=== PATIENT | female | born 1965 | race Caucasian/White ===

== ENCOUNTER 2022-01-18 05:06 | Inpatient (IN) | payer OTHER, SELFPAY ==
[2022-01-18] VITALS (18 sets, daily range): BP systolic 83–149; BP diastolic 44–100; PULSE 73–99; RESP 16–20; TEMP 36.2–38.2; O2SAT 96–100; BMI 31.8
--- NOTE | 2022-01-18 05:22 | DI.CT.S_ITS ---
PROCEDURE: CT ABDOMEN PELVIS WO CON INDICATIONS: Abdominal pain, status post colonoscopy TECHNIQUE: Axial sections were acquired from the lung bases to the pubic symphysis. Coronal and sagittal reformats were performed. For radiation dose reduction, the following was used: automated exposure control, adjustment of mA and/or kV according to patient size. COMPARISON: None. FINDINGS: Image quality: Excellent. Lung bases: Scars and atelectasis in right middle lobe and lingula. Heart: No significant findings. URINARY: Right Kidney: No stones or hydronephrosis. Right Ureter: No hydroureter. Left Kidney: No stones or hydronephrosis. Left Ureter: No hydroureter. Bladder: Normal wall thickness. No stones. ABDOMEN: Liver: Normal size. A 1.2 cm low-density nodule in the posterior medial aspect of the right hepatic lobe is most likely a cyst. Gallbladder: Unremarkable. Biliary ducts: Unremarkable. Pancreas: Unremarkable. Spleen: Unremarkable. Adrenal Glands: Unremarkable. Stomach and Bowel: Appendix is mildly enlarged measuring up to 10 cm in diameter. There is mild periappendiceal stranding. An appendicoliths is present at the base of the appendix. The CT findings are suspicious for early acute appendicitis. Stomach, small bowel loops, and colon are unremarkable. Peritoneum: No abnormal intraperitoneal fluid. No free air. Ventral Wall: No hernia. Abdominal Nodes: No enlarged retroperitoneal or mesenteric lymph nodes. Vessels: Aorta and inferior vena cava are normal in size. PELVIS: Pelvic Organs: Unremarkable. Pelvic Nodes: Unremarkable. Miscellaneous: No inguinal hernias are seen. Bones: Degenerative changes noted. IMPRESSION: 1. Early acute appendicitis. No significant discrepancy with the cnc machinist 2nd shift radiology preliminary report. Dictated by: Cristian Garcia M.D. on 01/18/2022 at 7:56 Approved by: Cristian Garcia M.D. on 01/18/2022 at 8:01
--- NOTE | 2022-01-18 05:24 | ED_ITS ---
HPI - Abdominal Pain <Jasper Alvarenga MD - Last Filed: 01/18/22 18:00> General Chief Complaint: Abdominal Pain Stated Complaint: stomach pains post colonscopy Time Seen by Provider: 01/18/22 05:14 Source: patient Mode of arrival: Ambulatory History of Present Illness HPI narrative: Patient here with . Postop day 1 status post colonoscopy yesterday morning with Dr. Berman at [facility] in [place]. This would be her 2nd colonoscopy in her life. Patient states she has had generalized abd ominal pain and bloating since the colonoscopy yesterday. No chest pain no back pain no vomiting or diarrhea. Had a little bit of flatus yesterday. She did walk around yesterday morning.. No urinary complaints. Patient does recall having fentanyl for her procedure yesterday. No side effects with it. Related Data Home Medications Medication Instructions Recorded Confirmed cetirizine 10 mg tablet 10 mg PO QDAYP PRN Allergy 10/28/16 01/18/22 Symptoms ##0 lisinopril 2.5 mg tablet 1.25 mg PO QDAY ##0 10/28/16 01/18/22 Previous Rx's Medication Instructions Recorded estradiol 0.01% (0.1 mg/gram) 1 g vaginal DAILY Vaginal atrophy 11/04/20 vaginal cream #42.5 grams Allergies Allergy/AdvReac Type Severity Reaction Status Date / Time buspirone [From BUSPAR] Allergy Unknown Verified 11/01/20 16:28 levofloxacin [LEVOFLOXACIN] Allergy Unknown Verified 11/01/20 16:28 pseudoephedrine Allergy Unknown Verified 11/01/20 16:28 [From SUDAFED] Sulfa (Sulfonamide Allergy Unknown Verified 11/01/20 16:28 Antibiotics) [SULFA (SULFONAMIDE ANTIBIOTICS)] morphine AdvReac Hypotension Verified 11/01/20 16:28 Review of Systems <Jasper Alvarenga MD - Last Filed: 01/18/22 18:00> Review of Systems Narrative: GENERAL: Denies chills, fatigue, malaise, fever, sweats. HEENT: Denies sinus pain, ear pain, sore throat RESPIRATORY: Denies dyspnea, cough CARDIOVASCULAR: Denies chest pain, palpitations GASTROINTESTINAL: Denies nausea, vomiting, positive for abdominal pain : Denies dysuria, frequency, hematuria MUSCULOSKELETAL: denies muscle or bony pain SKIN: Denies rash, skin lesions NEUROLOGIC: Denies weakness, numbness ROS Unobtainable: All systems reviewed & are unremarkable except as noted in HPI and below Patient History <Jsaper Alvarenga MD - Last Filed: 01/18/22 18:00> Medical History Anemia (~2005) Anxiety (~1988) Carpal tunnel syndrome (~2007) Cervical somatic dysfunction Chicken pox (~1974) Chronic back pain (~1998) Cranial somatic dysfunction Degenerative disc disease (~1998) Depression (~1999) Endometriosis (~1990) GERD (gastroesophageal reflux disease) (~2007) Hearing loss (~2014) Hypertension (~2005) Mumps (~1975) Neck pain Osteoarthritis (~2007) Shortness of breath Situational anxiety Stressful life events affecting family and household Tension headache Thoracic region somatic dysfunction Thyroid nodule (~2013) Tinnitus (~2014) Vision disorder Surgical History Anesthesia History of cystocele (~2012) History of hysterectomy (~2007) History of left breast biopsy (~1988) Family History Father History of heart disease Hypertension Hyperlipidemia Mental health problem Mother Lymphoma Cancer Grandfather History of heart disease Grandmother History of heart disease Grandfather History of emphysema Grandmother Stroke Social History household members: spouse Smoking Status: Former smoker alcohol intake: current Smoking Status: Former smoker alcohol intake frequency: a few times a month Substance Use Type: marijuana Exam <Jasper Alvarenga MD - Last Filed: 01/18/22 18:00> Narrative Exam Narrative: GENERAL: in no distress, not toxic not dyspneic HEAD: Normocephalic. EYES: Pupils equal round No scleral icterus. NECK: Trachea midline. CARDIOVASCULAR: Regular rate and rhythm without murmurs RESPIRATORY: Clear to auscultation. Breath sounds equal bilaterally. No wheezes, rales, or rhonchi. GASTROINTESTINAL: Abdomen soft, positive McBurney point tenderness., no peritoneal signs. No pain out of proportion to exam. NEURO: AOx4. SKIN: Warm and dry PSYCH: Not anxious, is cooperative Initial Vital Signs Initial Vital Signs: Vital Signs Temperature 97.1 F L 01/18/22 05:10 Pulse Rate 80 01/18/22 05:10 Respiratory Rate 18 01/18/22 05:10 Blood Pressure 140/100 H 01/18/22 05:10 Pulse Oximetry 99 01/18/22 05:10 Oxygen Delivery Method 01/18/22 05:10 <Hugo Phillips DO - Last Filed: 01/18/22 07:16> Initial Vital Signs Initial Vital Signs: Vital Signs Temperature 97.1 F L 01/18/22 05:10 Pulse Rate 80 01/18/22 05:10 Respiratory Rate 18 01/18/22 05:10 Blood Pressure 140/100 H 01/18/22 05:10 Pulse Oximetry 99 01/18/22 05:10 Oxygen Delivery Method 01/18/22 05:10 Course <Jasper Alvarenga MD - Last Filed: 01/18/22 18:00> Course Course Narrative: No new issues during course of stay 7:00 a.m.. Sign out to Dr. Phillips, will need to call Dr. Bedoya, general surgery Decision to Admit Date: 01/18/22 Decision to Admit time: 06:17 Orders Ordered: Hydrocodone Bitart/Acetaminophen (Hydrocodone/Acet 5/325 Tablet) 1 tab PO Q4HR PRN PRN Reason: Pain, Moderate (4-6) Hydromorphone HCl (Hydromorphone 0.5 Mg Inj) 0.5 mg IV Q4H PRN PRN Reason: Breakthrough pain only (8-10) Last Admin: 01/18/22 15:42 Dose: 0.5 mg Documented By: BT Sodium Chloride (Normal Saline 0.9%) 1,000 mls @ 125 mls/hr IV CONT MIA Last Infusion: 01/18/22 12:20 Dose: 0 mls/hr Documented By: Admin: 01/18/22 07:39 Dose: 125 mls/hr Documented By: JOCELYN Lactated Ringer's (Lactated Ringers) 1,000 mls @ 100 mls/hr IV CONT MIA Last Admin: 01/18/22 12:40 Dose: 100 mls/hr Documented By: BT Ibuprofen (Ibuprofen 600 Mg Tablet) 600 mg PO Q8H PRN PRN Reason: Fever/Mild Pain (1-3) Last Admin: 01/18/22 12:40 Dose: 600 mg Documented By: GEOVANY Naloxone HCl (Naloxone 0.4 Mg/Ml Vial) 0.2 mg IV Q2MIN PRN PRN Reason: Opiate Reversal Ondansetron HCl (Ondansetron 4 Mg/2 Ml Inj) 4 mg IV Q8HR PRN PRN Reason: Nausea And Vomiting Discontinued Medications Fentanyl (Fentanyl 100 Mcg/2 Ml Inj) 25 mcg IV NOW ONE Stop: 01/18/22 06:41 Last Admin: 01/18/22 06:48 Dose: 25 mcg Documented By: SWATI Fentanyl (Fentanyl 100 Mcg/2 Ml Inj) 25 mcg IV NOW ONE Stop: 01/18/22 10:03 Last Admin: 01/18/22 10:08 Dose: 25 mcg Documented By: JOCELYN Fentanyl (Fentanyl 100 Mcg/2 Ml Inj) 25 mcg IV NOW ONE Stop: 01/18/22 11:22 Last Admin: 01/18/22 11:30 Dose: 25 mcg Documented By: ROBBY Hydromorphone HCl (Hydromorphone 0.5 Mg Inj) 0.5 mg IV NOW ONE Stop: 01/18/22 07:38 Last Admin: 01/18/22 07:39 Dose: 0.5 mg Documented By: JOCELYN Sodium Chloride (Normal Saline 0.9%) 1,000 mls @ 1,000 mls/hr IV BOLUS ONE Stop: 01/18/22 06:21 Last Infusion: 01/18/22 07:43 Dose: 0 mls/hr Documented By: Admin: 01/18/22 05:38 Dose: 1,000 mls/hr Documented By: LINDA Piperacillin Sod/Tazobactam (Sod 4.5 gm/ Sodium Chloride) 100 mls @ 200 mls/hr IV NOW ONE Stop: 01/18/22 07:15 Last Infusion: 01/18/22 08:31 Dose: 0 mls/hr Documented By: Admin: 01/18/22 07:42 Dose: 200 mls/hr Documented By: JOCELYN Sodium Chloride (Normal Saline 0.9%) 1,000 mls @ 1,000 mls/hr IV BOLUS ONE Stop: 01/18/22 17:53 Last Admin: 01/18/22 17:06 Dose: 1,000 mls/hr Documented By: BT Reevaluation(s) Reevaluation #1: Reviewed results with patient. Understands likely appendicitis. Awaiting callback from general surgeon Time: 06:17 Consultations Consultation #1: Spoke with general surgery Dr. Hughes. Keep patient NPO. Dr. Bedoya will be likely doing surgery Time: 06:22 Vital Signs Vital signs: Vital Signs - 8 hr 01/18/22 05:10 Temperature 97.1 F L Pulse Rate 80 Respiratory Rate 18 Blood Pressure 140/100 H Pulse Oximetry 99 Oxygen Delivery Method Room Air <Hugo Phillips, - Last Filed: 01/18/22 07:16> Orders Ordered: Hydrocodone Bitart/Acetaminophen (Hydrocodone/Acet 5/325 Tablet) 1 tab PO Q4HR PRN PRN Reason: Pain, Moderate (4-6) Hydromorphone HCl (Hydromorphone 0.5 Mg Inj) 0.5 mg IV Q4H PRN PRN Reason: Breakthrough pain only (8-10) Last Admin: 01/18/22 15:42 Dose: 0.5 mg Documented By: BT Sodium Chloride (Normal Saline 0.9%) 1,000 mls @ 125 mls/hr IV CONT MIA Last Infusion: 01/18/22 12:20 Dose: 0 mls/hr Documented By: Admin: 01/18/22 07:39 Dose: 125 mls/hr Documented By: JOCELYN Lactated Ringer's (Lactated Ringers) 1,000 mls @ 100 mls/hr IV CONT MIA Last Admin: 01/18/22 12:40 Dose: 100 mls/hr Documented By: BT Ibuprofen (Ibuprofen 600 Mg Tablet) 600 mg PO Q8H PRN PRN Reason: Fever/Mild Pain (1-3) Last Admin: 01/18/22 12:40 Dose: 600 mg Documented By: BT Naloxone HCl (Naloxone 0.4 Mg/Ml Vial) 0.2 mg IV Q2MIN PRN PRN Reason: Opiate Reversal Ondansetron HCl (Ondansetron 4 Mg/2 Ml Inj) 4 mg IV Q8HR PRN PRN Reason: Nausea And Vomiting Discontinued Medications Fentanyl (Fentanyl 100 Mcg/2 Ml Inj) 25 mcg IV NOW ONE Stop: 01/18/22 06:41 Last Admin: 01/18/22 06:48 Dose: 25 mcg Documented By: SWATI Fentanyl (Fentanyl 100 Mcg/2 Ml Inj) 25 mcg IV NOW ONE Stop: 01/18/22 10:03 Last Admin: 01/18/22 10:08 Dose: 25 mcg Documented By: JOCELYN Fentanyl (Fentanyl 100 Mcg/2 Ml Inj) 25 mcg IV NOW ONE Stop: 01/18/22 11:22 Last Admin: 01/18/22 11:30 Dose: 25 mcg Documented By: AT Hydromorphone HCl (Hydromorphone 0.5 Mg Inj) 0.5 mg IV NOW ONE Stop: 01/18/22 07:38 Last Admin: 01/18/22 07:39 Dose: 0.5 mg Documented By: JOCELYN Sodium Chloride (Normal Saline 0.9%) 1,000 mls @ 1,000 mls/hr IV BOLUS ONE Stop: 01/18/22 06:21 Last Infusion: 01/18/22 07:43 Dose: 0 mls/hr Documented By: Admin: 01/18/22 05:38 Dose: 1,000 mls/hr Documented By: LINDA Piperacillin Sod/Tazobactam (Sod 4.5 gm/ Sodium Chloride) 100 mls @ 200 mls/hr IV NOW ONE Stop: 01/18/22 07:15 Last Infusion: 01/18/22 08:31 Dose: 0 mls/hr Documented By: Admin: 01/18/22 07:42 Dose: 200 mls/hr Documented By: JOCELYN Sodium Chloride (Normal Saline 0.9%) 1,000 mls @ 1,000 mls/hr IV BOLUS ONE Stop: 01/18/22 17:53 Last Admin: 01/18/22 17:06 Dose: 1,000 mls/hr Documented By: GEOVANY Vital Signs Vital signs: Vital Signs - 8 hr 01/18/22 05:10 Temperature 97.1 F L Pulse Rate 80 Respiratory Rate 18 Blood Pressure 140/100 H Pulse Oximetry 99 Oxygen Delivery Method Room Air MDM - Abdominal Pain <Jasper Alvarenga MD - Last Filed: 01/18/22 18:00> Differential Diagnosis Differential diagnosis: Likely abdominal pain, acute appendicitis, constipation, pancreatitis and small bowel obstruction Lab Data Result diagrams: 01/18/22 05:34 01/18/22 05:34 Labs: Lab Results 01/18/22 01/18/22 01/18/22 Range/Units 05:34 05:34 06:40 WBC 11.7 H (4.5-11.0) X10^3/uL RBC 4.03 (4.0-5.2) X10^6/uL Hgb 12.6 (12.0-16.0) g/dL Hct 36.8 (36-46) % MCV 91.3 (80-100) fL MCH 31.3 (26-34) PG MCHC 34.2 (30-36) % RDW 12.5 (11.6-14.8) % Plt Count 340 (150-400) X10^3/uL Neut % (Auto) 72.8 (50-75) % Lymph % (Auto) 18.4 L (25-40) % [place] % (Auto) 8.0 (3-14) % Eos % (Auto) 0.4 L (2-4) % Baso % (Auto) 0.4 (0-2) % Neut # (Auto) 8500 H (8513-2283) /uL Lymph # (Auto) 2200 (8114-8704) /uL [place] # (Auto) 900 (0-900) /uL Eos # (Auto) 0 (0-450) /uL Baso # (Auto) 100 (0-100) /uL Sodium 132 L (137-145) mmol/L Potassium 3.7 (3.4-5.1) mmol/L Chloride 98 (98-107) mmol/L Carbon Dioxide 22 (22-32) mmol/L BUN 14 (7-17) mg/dL Creatinine 0.69 (0.52-1.04) mg/dL Estimated GFR > 60 (>60) mL/min BUN/Creatinine Ratio 20.3 (6-22) Glucose 121 H (70-100) mg/dL Calcium 9.2 (8.4-10.2) mg/dL Total Bilirubin 0.5 (0.2-1.3) mg/dL AST 24 (14-36) IU/L ALT 18 (<35) IU/L Alkaline Phosphatase 57 (38-126) U/L Total Protein 7.8 (6.3-8.2) g/dL Albumin 4.6 (3.5-5.0) g/dL Globulin 3.2 (1.7-4.1) g/dL Albumin/Globulin Ratio 1.4 (1.0-2.8) Lipase 117 (23-300) U/L SARS-CoV-2 (PCR) Negative (Negative) Imaging Data CT scan - abdomen/pelvis: Radiologist's Impression: Read by overnight radiologist no free air demonstrated. 12 mm appendicolith base of the appendix. The appendix is distended at 11 mm and mild periappendiceal inflammatory changes of all concerning for early acute unc omplicated appendicitis. MDM Narrative Medical decision making narrative: Appropriate for admission for surgical intervention. <Hugo Phillips DO - Last Filed: 01/18/22 07:16> Lab Data Labs: Lab Results 01/18/22 01/18/22 01/18/22 Range/Units 05:34 05:34 06:40 WBC 11.7 H (4.5-11.0) X10^3/uL RBC 4.03 (4.0-5.2) X10^6/uL Hgb 12.6 (12.0-16.0) g/dL Hct 36.8 (36-46) % MCV 91.3 (80-100) fL MCH 31.3 (26-34) PG MCHC 34.2 (30-36) % RDW 12.5 (11.6-14.8) % Plt Count 340 (150-400) X10^3/uL Neut % (Auto) 72.8 (50-75) % Lymph % (Auto) 18.4 L (25-40) % [place] % (Auto) 8.0 (3-14) % Eos % (Auto) 0.4 L (2-4) % Baso % (Auto) 0.4 (0-2) % Neut # (Auto) 8500 H (3754-6264) /uL Lymph # (Auto) 2200 (6420-2418) /uL [place] # (Auto) 900 (0-900) /uL Eos # (Auto) 0 (0-450) /uL Baso # (Auto) 100 (0-100) /uL Sodium 132 L (137-145) mmol/L Potassium 3.7 (3.4-5.1) mmol/L Chloride 98 (98-107) mmol/L Carbon Dioxide 22 (22-32) mmol/L BUN 14 (7-17) mg/dL Creatinine 0.69 (0.52-1.04) mg/dL Estimated GFR > 60 (>60) mL/min BUN/Creatinine Ratio 20.3 (6-22) Glucose 121 H (70-100) mg/dL Calcium 9.2 (8.4-10.2) mg/dL Total Bilirubin 0.5 (0.2-1.3) mg/dL AST 24 (14-36) IU/L ALT 18 (<35) IU/L Alkaline Phosphatase 57 (38-126) U/L Total Protein 7.8 (6.3-8.2) g/dL Albumin 4.6 (3.5-5.0) g/dL Globulin 3.2 (1.7-4.1) g/dL Albumin/Globulin Ratio 1.4 (1.0-2.8) Lipase 117 (23-300) U/L SARS-CoV-2 (PCR) Negative (Negative) MDM Narrative Medical decision making narrative: Appropriate for admission for surgical intervention. Dr Phillips: Received turned over. Reviewed patient's history and physical and labs and radiologic studies. I did discuss the case with Dr. Bedoya. Will admit to the hospital for surgical intervention of the CT consistent with acute appendicitis. Antibiotics ordered. Discharge Plan Departure Patient Disposition: Admitted as Observation Clinical Impression: Acute appendicitis Admit Date/Time: 01/18/22 07:22 Admit Provider: Michael Bedoya
[2022-01-18] MEDS: SODIUM CHLORIDE 0.9% 1,000 ML 1000 ML IV ×2 (05:38→17:06)
[2022-01-18 05:48] LABS: Add Manual Diff / Slide Review NO; Basophils Absolute Auto 100 /uL (0-100); Basophils Percent Auto 0.4 % (0-2); Eosinophils Absolute Auto 0 /uL (0-450); Eosinophils Percent Auto 0.4 % (2-4); Hematocrit 36.8 % (36-46); Hemoglobin 12.6 g/dL (12.0-16.0); Lymphocytes Absolute Auto 2200 /uL (1100-4500); Lymphocytes Percent Auto 18.4 % (25-40); Mean Corpuscular HGB Conc 34.2 % (30-36); Mean Corpuscular Hemoglobin 31.3 PG (26-34); Mean Corpuscular Volume 91.3 fL (80-100); Monocytes Absolute Auto 900 /uL (0-900); Neutrophils Absolute Auto 8500 /uL (1500-7000); Neutrophils Percent Auto 72.8 % (50-75); Platelet Count 340 X10^3/uL (150-400); Red Blood Cell Count 4.03 X10^6/uL (4.0-5.2); Red Cell Distribution Width 12.5 % (11.6-14.8); White Blood Cell Count 11.7 X10^3/uL (4.5-11.0)
[2022-01-18 05:55] LABS: Alanine Aminotransferase 18 IU/L (<35); Albumin 4.6 g/dL (3.5-5.0); Albumin Globulin Ratio 1.4 (1.0-2.8); Alkaline Phosphatase 57 U/L (38-126); Aspartate Aminotransferase 24 IU/L (14-36); BUN Creatinine Ratio 20.3 (6-22); Bilirubin Total 0.5 mg/dL (0.2-1.3); Blood Urea Nitrogen 14 mg/dL (7-17); Calcium 9.2 mg/dL (8.4-10.2); Carbon Dioxide 22 mmol/L (22-32); Chloride 98 mmol/L (98-107); Estimated Glomerular Filt Rate > 60 mL/min (>60); Globulin 3.2 g/dL (1.7-4.1); Glucose 121 mg/dL (70-100); HEMOLYSIS < 15 (0-50); Lipase 117 U/L (23-300); Potassium 3.7 mmol/L (3.4-5.1); Sodium 132 mmol/L (137-145); Total Protein 7.8 g/dL (6.3-8.2)
[2022-01-18] MEDS: fentaNYL 100 MCG/2 ML INJ 25 MCG IV ×3 (06:48→11:30)
[2022-01-18 07:08] LABS: COVID19 -Nasal RAPID Negative (Negative)
[2022-01-18] MEDS: HYDROMORPHONE 0.5 MG INJ IV ×2 (07:39→15:42)
[2022-01-18] MEDS: SODIUM CHLORIDE 0.9% 1,000 ML 125 ML IV ×2 (07:39→18:42)
[2022-01-18] MEDS: PIPERACILLIN/TAZO 4.5 GM in SODIUM CHLORIDE 0.9% 100 ML IV ×2 (07:42→20:20)
--- NOTE | 2022-01-18 11:17 | PC.NURSE ---
Pt reports pain, requesting Fentanyl 25mcg IV, declines PRN pain medications orders r/t stating it made her feel weird. Call placed to Dr. Matias by previous RN, second call placed to Dr. Bedoya by this RN. Dr. Bedoya refers pain managment order to ER Dr. Phillips, verbal orders received.
[2022-01-18] MEDS: LACTATED RINGERS 1,000 ML 100 ML IV (12:40)
[2022-01-18] MEDS: IBUPROFEN 600 MG TABLET PO (12:40)
--- NOTE | 2022-01-18 18:49 | P.HP_ITS ---
History of Present Illness History of Present Illness Date Patient Seen: 01/18/22 Time Patient Seen: 18:49 Chief complaint: stomach pains post colonoscopy Narrative: Michelle is a 56-year-old woman who had a colonoscopy at [facility] yesterday. Two small polyps were removed. She started to feel right-sided abdominal pain last night and came to the emergency room overnight. A CT scan showed a dilated appendix with an appendicolith. There was no evidence of perforation. Patient History Medical History Anemia (~2005) Anxiety (~1988) Carpal tunnel syndrome (~2007) Cervical somatic dysfunction Chicken pox (~1974) Chronic back pain (~1998) Cranial somatic dysfunction Degenerative disc disease (~1998) Depression (~1999) Endometriosis (~1990) GERD (gastroesophageal reflux disease) (~2007) Hearing loss (~2014) Hypertension (~2005) Mumps (~1975) Neck pain Osteoarthritis (~2007) Shortness of breath Situational anxiety Stressful life events affecting family and household Tension headache Thoracic region somatic dysfunction Thyroid nodule (~2013) Tinnitus (~2014) Vision disorder Surgical History Anesthesia History of cystocele (~2012) History of hysterectomy (~2007) History of left breast biopsy (~1988) Family & Social History Family History Father History of heart disease Hypertension Hyperlipidemia Mental health problem Mother Lymphoma Cancer Grandfather History of heart disease Grandmother History of heart disease Grandfather History of emphysema Grandmother Stroke Social History: household members spouse Prior Living Arrangements House Safety & Behavioral: Feels Safe in Current Yes Environment Been Physically Hurt or No Threatened By a Person Tobacco & Substance use: Tobacco type cigarettes Smoking Status Former smoker alcohol intake current alcohol intake frequency a few times a month Substance Use Type marijuana Meds Home Medications and Allergies Home Medications Medication Instructions Recorded Confirmed Type cetirizine 10 mg tablet 10 mg PO QDAYP PRN Allergy 10/28/16 01/18/22 History Symptoms ##0 lisinopril 2.5 mg tablet 1.25 mg PO QDAY ##0 10/28/16 01/18/22 History estradiol 0.01% (0.1 mg/gram) 1 g vaginal DAILY Vaginal atrophy 11/04/20 01/18/22 Rx vaginal cream #42.5 grams Allergies Allergy/AdvReac Type Severity Reaction Status Date / Time buspirone [From BUSPAR] Allergy Unknown Verified 11/01/20 16:28 levofloxacin [LEVOFLOXACIN] Allergy Unknown Verified 11/01/20 16:28 pseudoephedrine Allergy Unknown Verified 11/01/20 16:28 [From SUDAFED] Sulfa (Sulfonamide Allergy Unknown Verified 11/01/20 16:28 Antibiotics) [SULFA (SULFONAMIDE ANTIBIOTICS)] morphine AdvReac Hypotension Verified 11/01/20 16:28 Exam Vital Signs (past 8 hours): - 01/18/22 11:00 01/18/22 11:00 01/18/22 11:30 Temperature Pulse Rate 86 Respiratory Rate Blood Pressure 127/60 130/61 Pulse Oximetry 100 Oxygen Delivery Method Oxygen Flow Rate 01/18/22 11:30 01/18/22 12:00 01/18/22 12:00 Temperature Pulse Rate 77 83 Respiratory Rate Blood Pressure 137/68 Pulse Oximetry 100 99 Oxygen Delivery Method Room Air Oxygen Flow Rate 01/18/22 12:40 01/18/22 17:04 01/18/22 17:48 Temperature 97.7 F 99.7 F H 99.6 F Pulse Rate 82 94 H Respiratory Rate 17 16 Blood Pressure 149/79 H 98/51 L 131/76 Pulse Oximetry 100 97 Oxygen Delivery Method Oxygen Flow Rate 0 0 Oxygen Delivery Method Room Air Oxygen Flow Rate 0 Resp Effort & Inspection: normal respiratory effort GI Other: Exquisitely tender over McBurney's point Objective Labs Result Diagrams: 01/18/22 05:34 01/18/22 05:34 Labs: Laboratory Results - last 24 hr 01/18/22 01/18/22 01/18/22 05:34 05:34 06:40 WBC 11.7 H RBC 4.03 Hgb 12.6 Hct 36.8 MCV 91.3 MCH 31.3 MCHC 34.2 RDW 12.5 Plt Count 340 Neut % (Auto) 72.8 Lymph % (Auto) 18.[address] [place] % (Auto) 8.0 Eos % (Auto) 0.4 L Baso % (Auto) 0.4 Neut # (Auto) 8500 H Lymph # (Auto) 2200 [place] # (Auto) 900 Eos # (Auto) 0 Baso # (Auto) 100 Sodium 132 L Potassium 3.7 Chloride 98 Carbon Dioxide 22 BUN 14 Creatinine 0.69 Estimated GFR > 60 BUN/Creatinine Ratio 20.3 Glucose 121 H Calcium 9.2 Total Bilirubin 0.5 AST 24 ALT 18 Alkaline Phosphatase 57 Total Protein 7.8 Albumin 4.6 Globulin 3.2 Albumin/Globulin Ratio 1.4 Lipase 117 SARS-CoV-2 (PCR) Negative Assessment & Plan Assessment and plan (1) Acute appendicitis: Qualifiers: Acute appendicitis type: with localized peritonitis Appendicitis gangrene presence: without gangrene Appendicitis perforation presence: without perforation Appendicitis abscess presence: without abscess Qualified Code(s): K35.30 - Acute appendicitis with localized peritonitis, without perforation or gangrene Status: Acute Plan Will proceed with a laparoscopic appendectomy as soon as there is or availability. In the meantime she can have full liquid diet until midnight and then be NPO. Will continue Zosyn until we can get her into the operating room. We reviewed the risks and benefits of surgery and she wishes to proceed. Time Spent With Patient Critical Care time: I spent a total of [] minutes of critical care time on this patient's care today; this time is exclusive of procedural time. Quality VTE Deep Vein Thrombosis/Pulmonary Embolism Present on Admission: No
[2022-01-18] MEDS: CODEINE 30 MG TABLET PO (18:58)
[2022-01-18] MEDS: IBUPROFEN 400 MG TABLET 800 MG PO (19:16)
[2022-01-18] MEDS: ACETAMINOPHEN 325 MG TABLET 650 MG PO (19:17)
[2022-01-19] VITALS (16 sets, daily range): BP systolic 92–128; BP diastolic 50–74; PULSE 55–93; RESP 14–18; TEMP 36.2–37.4; O2SAT 94–100; BMI 31.8
--- NOTE | 2022-01-19 | PATH_ITS ---
[facility] Accession Number: [id number] . 01 Material submitted: . appendix - APPENDIX . 01 Clinical history: . STOMACH PAINS POST COLONOSCOPY . 01 Diagnosis: Vermiform Appendix, Appendectomy: Acute transmural appendicitis and periappendicitis. Negative for neoplasia. MRV 01/22/2022 1428 Local . 01 Electronically signed: . Kelsey Suazo MD, Pathologist NPI- [id number] . 01 Gross description: . Received in formalin, labeled with the patient's name and designated 1. Appendix, is a 7.5 cm long by 1.2 cm in diameter, intact vermiform appendix with a minimal amount of attached hemorrhagic mesoappendix. The proximal margin is inked black. The serosa is mottled, edward-estrada with a moderate amount of attached estrada-white purulent exudate. The wall is 0.1-0.2 cm thick. The lumen is 0.3, dilated up to 1.0 cm, filled with fecal material. No gross perforation is identified. Director [employer] sections to include inked proximal margin en face and distal bisected tip are submitted in cassette A1. (JACINTO:[id number]) /FRR 01/20/2022 1320 Local . 01 Pathologist provided ICD-10: K35.80 . 01 CPT . 435984 Specimen Comment: A courtesy copy of this report has been sent to [phone] Performed at: 01 [facility] [address] [place] [address] [id number] MD Elgin Breaux MD Phone: [phone]
[2022-01-19] MEDS: LACTATED RINGERS 1,000 ML 100 ML IV (00:35)
[2022-01-19] MEDS: ACETAMINOPHEN 325 MG TABLET 650 MG PO ×3 (01:36→15:21)
[2022-01-19] MEDS: IBUPROFEN 600 MG TABLET PO (03:13)
[2022-01-19] MEDS: PIPERACILLIN/TAZO 4.5 GM in SODIUM CHLORIDE 0.9% 100 ML IV ×3 (03:50→21:30)
[2022-01-19 04:28] LABS: Add Manual Diff / Slide Review NO; Basophils Absolute Auto 100 /uL (0-100); Basophils Percent Auto 0.4 % (0-2); Eosinophils Absolute Auto 0 /uL (0-450); Eosinophils Percent Auto 0.1 % (2-4); Hematocrit 32.7 % (36-46); Hemoglobin 11.3 g/dL (12.0-16.0); Lymphocytes Absolute Auto 300 /uL (1100-4500); Lymphocytes Percent Auto 1.8 % (25-40); Mean Corpuscular HGB Conc 34.4 % (30-36); Mean Corpuscular Hemoglobin 31.5 PG (26-34); Mean Corpuscular Volume 91.4 fL (80-100); Monocytes Absolute Auto 600 /uL (0-900); Monocytes Percent Auto 3.5 % (3-14); Neutrophils Absolute Auto 17000 /uL (1500-7000); Neutrophils Percent Auto 94.2 % (50-75); Platelet Count 232 X10^3/uL (150-400); Red Blood Cell Count 3.57 X10^6/uL (4.0-5.2); Red Cell Distribution Width 12.5 % (11.6-14.8)
[2022-01-19 04:51] LABS: BUN Creatinine Ratio 11.8 (6-22); Blood Urea Nitrogen 9 mg/dL (7-17); Carbon Dioxide 21 mmol/L (22-32); Chloride 103 mmol/L (98-107); Estimated Glomerular Filt Rate > 60 mL/min (>60); Glucose 118 mg/dL (70-100); HEMOLYSIS < 15 (0-50); Potassium 3.6 mmol/L (3.4-5.1); Sodium 132 mmol/L (137-145)
--- NOTE | 2022-01-19 07:40 | PC.NURSE ---
Online Marketer Note-Patient has been fatigued but oriented x4. NPO since midnight except meds for possible exploratory lap today. No N/V, rates abdominal pain 3-6/10 and intermittent headache 3-5/10, takin Tylenol and ibuprofen. BP 90s/40s-50s. other VSS. Scheduled Zosyn infusing with NS, IVF order is for LR at 100ml/hr, patient refused another IV start.
--- NOTE | 2022-01-19 10:20 | PC.NURSE ---
Day shift: Pt off unit for surgery at approx 1015. Pt's Spouse was in room too and knows the plan.
[2022-01-19] MEDS: LACTATED RINGERS 1,000 ML 42 ML IV (10:43)
--- NOTE | 2022-01-19 11:19 | PM.PREOP ---
Pre-operative Note COVID-19 COVID-19 status: Negative Result date/Date tested (Pos, Neg/Pending): 01/18/22 Interval Note History & Physical reviewed/Exam performed by Physician: Yes Changes to H&P: No H&P completed within 30 days and has changed as indicated here:: Increased leukocytosis
--- NOTE | 2022-01-19 12:05 | PC.NURSE ---
Day shift: Pt remains off of AC unit at this time.
--- NOTE | 2022-01-19 12:17 | SUR.OPER ---
Supine on padded OR bed, head on pillow, safety belt at thigh, left arm padded and tucked at side. Right arm secured on padded arm board <90 degrees abduction. Legs uncrossed. Padded footboard in place. Tape over blanket to secure lower legs.
[2022-01-19] MEDS: BUPIVACAINE 0.5% (PF) VIAL 30 ML INJ (12:31)
[2022-01-19] MEDS: LIDOCAINE 1% W/EPI 20 ML INJ (12:31)
--- NOTE | 2022-01-19 12:54 | PM.OP.1 ---
Operative Date/Time/Diagnoses Date of procedure: 01/19/22 Time of procedure: 12:54 Pre-op diagnosis: Acute appendicitis Post-op diagnosis: same Procedure & Clinicians Procedure: Laparoscopic appendectomy Same procedure as scheduled: Yes Surgeon: Michael Bedoya Anesthesia Type: General Operative Notes Procedure in detail: Procedure in detail: The patient was on IV antibiotics. The patient was brought to the operating room, placed on the table in the supine position and general endotracheal anesthesia was induced. A time-out was performed. The abdomen was prepped and draped in the usual fashion. After injection of 0.25% Marcaine a 1 cm infraumbilical incision was created with a 15 blade scalpel. The umbilical stalk was grasped with a Jose Manuel clamp to elevate the abdominal wall. The infraumbilical midline fascia was cleared over 1 cm and the fascia was scored with cautery. The peritoneum was pierced with a Peon clamp. The Janice port was placed and the abdomen was insufflated to 15 mmHg. The camera was inserted and there was no evidence of any injury from the entry. Next, 5 mm ports were placed in the suprapubic and left lower quadrant positions under direct vision. The patient was placed in Trendelenburg with the right-side elevated. The terminal ileum was swept away from the cecum and the appendix was visualized. The appendix was inflamed and distended but not perforated and there was no evidence of gangrene. The mesoappendix was divided with the LigaSure to the base. Two PDS Endoloops were placed at the base and a 3rd endoloop was placed about a cm distally and the appendix was divided sharply. The specimen was placed in a Endo-Catch bag. A small amount of fluid with suction from the base of the appendix, upper on right liver and down in the pelvis. The table was flattened and the terminal ileum and omentum were allowed to slide in over the appendiceal stump. Finally, the 5 mm ports were removed under direct vision. The pneumoperitoneum was released and the Janice port was removed followed by the Endo-Catch bag. Additional local was injected into the fascia and the infraumbilical incision was closed with 2 interrupted 2-0 Vicryl sutures. The skin incisions were closed with 4 Monocryl. Steri-Strips were applied followed by Band-Aids. EBL: 5 mL Specimen: Appendix Post-operative Condition: stable Disposition: PACU
[2022-01-19] MEDS: fentaNYL 100 MCG/2 ML INJ IV (13:42)
--- NOTE | 2022-01-19 13:58 | PC.NURSE ---
Day shift: Pt remains off AC unit at this time (1400).
--- NOTE | 2022-01-19 14:27 | SUR.PHASEI ---
1410: Pt A&Ox4, reports pain as tolerable and ready to transfer to room. Dressing C/D/I, abdomen soft. Report given to receiving RN using SBAR with time allowed for questions. Pt transferred to room with all personal belongings.
--- NOTE | 2022-01-19 14:55 | CM.DANOTE ---
DCP Note: Payor: Vesta PCP: MD Zachary Pt is a 56 y.o. F who presented to the ED yesterday with her after having a colonoscopy at [facility] the day prior with complaints of abdominal pain and bloating. CT scan was done and showed dilated appendix. No evidence of perforation noted. It was determined by Dr. Bedoya that patient will need a laparoscopic appendectomy. DCP attempted to visit with pt, however, patient was in surgery at the time of DCP visit. Unable to assess her. DCP to follow up with her on Saturday. Mar Landaverde RN/FOREST Discharge Planning/Care Management CM Discharge Assessment Start: 01/19/22 14:49 Freq: Status: Active Protocol: Document 01/19/22 14:49 LEO (Rec: 01/19/22 14:50 LEO [id number]) Discharge Planning Assessment Assigned Range Examiner Mar Landaverde RN/FOREST Advance Directives? No History Provided By Medical Record Prior Living Arrangements House Household Members spouse Type of transporation used prior to Drives own vehicle admit Review Status In Process Please Provide Date Initial DC 01/19/22 Assessment Was Performed Next Review Type Continued Stay Review
[2022-01-19] MEDS: BENZOCAINE/MENTHOL 1 LOZ PKT 1 EACH PO (15:20)
[2022-01-19] MEDS: IBUPROFEN 400 MG TABLET 800 MG PO ×2 (17:40→23:13)
[2022-01-20] MEDS: ACETAMINOPHEN 325 MG TABLET 650 MG PO ×3 (03:29→18:33)
[2022-01-20 03:39] VITALS: BP 113/64; PULSE 61; RESP 16; TEMP 36.5; O2SAT 99
[2022-01-20] MEDS: PIPERACILLIN/TAZO 4.5 GM in SODIUM CHLORIDE 0.9% 100 ML IV ×3 (05:04→22:52)
[2022-01-20] MEDS: IBUPROFEN 400 MG TABLET 800 MG PO ×3 (06:47→21:27)
[2022-01-20 07:00] VITALS: BP 123/84; PULSE 56; RESP 18; TEMP 36.5; O2SAT 100
[2022-01-20] MEDS: CODEINE 30 MG TABLET PO ×2 (08:11→12:11)
[2022-01-20 09:30] LABS: Add Manual Diff / Slide Review NO; Basophils Absolute Auto 0 /uL (0-100); Basophils Percent Auto 0.2 % (0-2); Eosinophils Absolute Auto 0 /uL (0-450); Eosinophils Percent Auto 0.1 % (2-4); Hematocrit 32.7 % (36-46); Hemoglobin 11.1 g/dL (12.0-16.0); Lymphocytes Absolute Auto 1000 /uL (1100-4500); Mean Corpuscular HGB Conc 33.8 % (30-36); Mean Corpuscular Hemoglobin 31.3 PG (26-34); Mean Corpuscular Volume 92.5 fL (80-100); Monocytes Absolute Auto 1100 /uL (0-900); Monocytes Percent Auto 6.7 % (3-14); Neutrophils Absolute Auto 14700 /uL (1500-7000); Platelet Count 226 X10^3/uL (150-400); Red Blood Cell Count 3.54 X10^6/uL (4.0-5.2); White Blood Cell Count 16.8 X10^3/uL (4.5-11.0)
[2022-01-20 11:10] VITALS: BP 141/86; PULSE 56; RESP 18; TEMP 36.9; O2SAT 100
--- NOTE | 2022-01-20 12:14 | PM.PNPO.1 ---
Subjective Subjective Date Patient Seen: 01/20/22 Time Patient Seen: 12:14 Interval history: Postoperative day 1 status post appendectomy. Tolerating liquids. Has abdominal cramping Exam Vital Signs (past 8 hours): - 01/20/22 07:00 01/20/22 11:10 Temperature 97.7 F 98.4 F Pulse Rate 56 L 56 L Respiratory Rate 18 18 Blood Pressure 123/84 141/86 H Pulse Oximetry 100 100 Oxygen Flow Rate 0 0 Oxygen Delivery Method Room Air Oxygen Flow Rate 0 Narrative Exam Narrative: General adult woman alert oriented no acute distress Abdomen mild distension appropriately tender to palpation Objective Labs Result Diagrams: 01/20/22 09:25 01/19/22 04:10 Labs: Laboratory Results - last 24 hr 01/20/22 09:25 WBC 16.8 H RBC 3.54 L Hgb 11.1 L Hct 32.7 L MCV 92.5 MCH 31.3 MCHC 33.8 RDW 13.0 Plt Count 226 Neut % (Auto) 87.0 H Lymph % (Auto) 6.0 L [place] % (Auto) 6.7 Eos % (Auto) 0.1 L Baso % (Auto) 0.2 Neut # (Auto) 32940 H Lymph # (Auto) 1000 L [place] # (Auto) 1100 H Eos # (Auto) 0 Baso # (Auto) 0 PFSH Medical History Anemia (~2005) Anxiety (~1988) Carpal tunnel syndrome (~2007) Cervical somatic dysfunction Chicken pox (~1974) Chronic back pain (~1998) Cranial somatic dysfunction Degenerative disc disease (~1998) Depression (~1999) Endometriosis (~1990) GERD (gastroesophageal reflux disease) (~2007) Hearing loss (~2014) Hypertension (~2005) Mumps (~1975) Neck pain Osteoarthritis (~2007) Shortness of breath Situational anxiety Stressful life events affecting family and household Tension headache Thoracic region somatic dysfunction Thyroid nodule (~2013) Tinnitus (~2014) Vision disorder Surgical History Anesthesia History of cystocele (~2012) History of hysterectomy (~2007) History of left breast biopsy (~1988) Family History Father History of heart disease Hypertension Hyperlipidemia Mental health problem Mother Lymphoma Cancer Grandfather History of heart disease Grandmother History of heart disease Grandfather History of emphysema Grandmother Stroke Social History household members: spouse Smoking Status: Former smoker alcohol intake: current Assessment & Plan Post-op Postoperative Procedures: Procedures Operation Date: 01/18/22 18:30 <No data on this case meets the specified criteria> Operation Date: 01/19/22 10:45 Actual Procedure Side Surgeon p Laparoscopic Appendectomy Michael Bedoya MD Postoperative status narrative: 56-year-old woman postoperative day 1 status post laparoscopic appendectomy with possible perforation. White blood cell count 17 from 18 yesterday. -continue IV antibiotics -regular diet -if resolution/down trending of leukocytosis anticipate discharge home tomorrow on oral antibiotics -SCDs and Lovenox Quality VTE Deep Vein Thrombosis/Pulmonary Embolism Present on Admission: No
--- NOTE | 2022-01-20 14:26 | PC.NURSE ---
Day shift: Pt ambulated in the halls approx 75 feet this afternoon. Tolerated well. She does c/o feeling full after lunch. Denies any nausea. Pain controlled well per MAR. Spouse in room for support. Call light in reach. IV antibiotics infusing.
[2022-01-20 15:02] VITALS: BP 128/79; PULSE 64; RESP 18; TEMP 36.9; O2SAT 100
--- NOTE | 2022-01-20 15:53 | CM.DPC ---
DCP Cont: Discussed patient during team rounds, she is on general diet, but her WBC increased to 18. CBC has been ordered, and surgeon wants to rule out any new infections. P: DCP to continue to follow for any needs. Patient should be able to go home when she is deemed medically stable. Fiona Bowden RN/Glass Lined Tank Repairer
[2022-01-20 19:42] VITALS: BP 135/82; PULSE 57; RESP 18; TEMP 37; O2SAT 100
[2022-01-20] MEDS: SODIUM CHLORIDE 0.9% FLUSH 10 ML IV (21:28)
[2022-01-20 22:21] VITALS: BP 139/87; PULSE 54; RESP 19; TEMP 36.7; O2SAT 97
[2022-01-21 02:46] VITALS: BP 151/77; PULSE 57; RESP 16; TEMP 36.1; O2SAT 96
[2022-01-21] MEDS: ACETAMINOPHEN 325 MG TABLET 650 MG PO (05:06)
[2022-01-21] MEDS: PIPERACILLIN/TAZO 4.5 GM in SODIUM CHLORIDE 0.9% 100 ML IV (06:06)
[2022-01-21] MEDS: IBUPROFEN 400 MG TABLET 800 MG PO (07:51)
[2022-01-21 08:00] VITALS: BP 145/82; PULSE 54; RESP 20; TEMP 36.3; O2SAT 98
[2022-01-21 09:49] LABS: Add Manual Diff / Slide Review NO; Basophils Absolute Auto 100 /uL (0-100); Basophils Percent Auto 0.4 % (0-2); Eosinophils Absolute Auto 200 /uL (0-450); Eosinophils Percent Auto 1.2 % (2-4); Hematocrit 35.3 % (36-46); Hemoglobin 11.8 g/dL (12.0-16.0); Lymphocytes Absolute Auto 2700 /uL (1100-4500); Lymphocytes Percent Auto 19.2 % (25-40); Mean Corpuscular HGB Conc 33.5 % (30-36); Mean Corpuscular Volume 92.4 fL (80-100); Monocytes Absolute Auto 800 /uL (0-900); Neutrophils Absolute Auto 10300 /uL (1500-7000); Neutrophils Percent Auto 73.2 % (50-75); Platelet Count 265 X10^3/uL (150-400); Red Blood Cell Count 3.82 X10^6/uL (4.0-5.2); Red Cell Distribution Width 13.2 % (11.6-14.8); White Blood Cell Count 14.1 X10^3/uL (4.5-11.0)
--- NOTE | 2022-01-21 10:57 | PM.DS.1 ---
History of Present Illness History of Present Illness Date Patient Seen: 01/21/22 Time Patient Seen: 10:57 Chief complaint: stomach pains post colonoscopy Narrative: 56-year-old woman who presented to the hospital with symptoms and radiographic evidence of acute appendicitis. Discharge Providers Provider Date of admission: 01/18/22 07:22 Discharge Date: 01/21/22 Primary care physician: Jasper Sharma DO Discharge provider: Josep Hernandez MD Summary Hospital Course Discharge Diagnosis: Acute appendicitis Hospital Course: Patient was taken the operating room and underwent a laparoscopic appendectomy. The appendix was grossly intact however there was fluid within the abdomen. White blood cell count remained mildly elevated postoperatively and she was maintained on IV antibiotics. At discharge leukocytosis is down trending. Her pain is well controlled with oral medication she is tolerant of diet and ambulatory. Will discharge on oral antibiotics x1 week Exam Vital Signs (past 8 hours): - 01/21/22 08:00 Temperature 97.4 F L Pulse Rate 54 L Respiratory Rate 20 Blood Pressure 145/82 H Pulse Oximetry 98 Oxygen Flow Rate 0 Oxygen Delivery Method Room Air Oxygen Flow Rate 0 Narrative Exam Narrative: Gen-Adult woman alert and oriented Abdomen soft incisions CDI non distended Objective Labs Result Diagrams: 01/21/22 09:41 01/19/22 04:10 Labs: Laboratory Results - last 24 hr 01/21/22 09:41 WBC 14.1 H RBC 3.82 L Hgb 11.8 L Hct 35.3 L MCV 92.4 MCH 31.0 MCHC 33.5 RDW 13.2 Plt Count 265 Neut % (Auto) 73.2 Lymph % (Auto) 19.2 L [place] % (Auto) 6.0 Eos % (Auto) 1.2 L Baso % (Auto) 0.4 Neut # (Auto) 97632 H Lymph # (Auto) 2700 [place] # (Auto) 800 Eos # (Auto) 200 Baso # (Auto) 100 PFSH Medical History Anemia (~2005) Anxiety (~1988) Carpal tunnel syndrome (~2007) Cervical somatic dysfunction Chicken pox (~1974) Chronic back pain (~1998) Cranial somatic dysfunction Degenerative disc disease (~1998) Depression (~1999) Endometriosis (~1990) GERD (gastroesophageal reflux disease) (~2007) Hearing loss (~2014) Hypertension (~2005) Mumps (~1975) Neck pain Osteoarthritis (~2007) Shortness of breath Situational anxiety Stressful life events affecting family and household Tension headache Thoracic region somatic dysfunction Thyroid nodule (~2013) Tinnitus (~2014) Vision disorder Surgical History Anesthesia History of cystocele (~2012) History of hysterectomy (~2007) History of left breast biopsy (~1988) Family History Father History of heart disease Hypertension Hyperlipidemia Mental health problem Mother Lymphoma Cancer Grandfather History of heart disease Grandmother History of heart disease Grandfather History of emphysema Grandmother Stroke Social History household members: spouse Smoking Status: Former smoker alcohol intake: current Discharge Plan Discharge Plan Patient Disposition: Home Provider Discharge Comment: -Okay to shower. -Do not submerge wounds in water until seen in follow-up. -No lifting >20 lbs x 4 weeks. -Walking only for exercise for 4 weeks. -No driving while taking narcotics. Discharge orders & Medications Prescriptions: New amoxicillin-pot clavulanate [Augmentin] 500-125 mg tablet 1 tab PO BID Qty: 14 0RF codeine sulfate 30 mg Tablet 30 mg PO Q4HR PRN (Reason: Pain, Moderate (4-6)) Qty: 12 0RF Continued cetirizine 10 MG tablet 10 mg PO QDAYP PRN (Reason: Allergy Symptoms) Qty: 0 lisinopril 2.5 MG tablet 1.25 mg PO QDAY Qty: 0 estradiol 0.01 % (0.1 mg/gram) cream 1 g vaginal DAILY Qty: 42.5 0RF Rx Instructions: for 14 days Follow up/Referrals: Michael Bedoya MD [Physician] - 2 Weeks Jasper Sharma DO [Primary Care Provider] - Diet/Activity/Treatments Diet: Diet as Tolerated Skin/Wound/Dressing Care Report to your healthcare provider any signs of infection, such as:: chills, fever, increased pain, unusual drainage and unusual redness Visit Report/Discharge Packet Instructions: DI for an Appendectomy, DI for Laparoscopy, [facility]: Wound Care Stand Alone Forms: Surgery Discharge Discharge Data Primary Care Provider: Jasper Sharma VTE Deep Vein Thrombosis/Pulmonary Embolism Present on Admission: No
[2022-01-21 11:55] VITALS: BP 155/84; PULSE 53; RESP 21; TEMP 36.7; O2SAT 99
--- NOTE | 2022-01-21 13:14 | PC.NURSE ---
Day shift: Paperwork signed and all questions answered. Spouse in room for d/c teachings. Left unit via WC at approx 1315. Pt's Spouse is driving her home. scripts sent electronic. Pt has all personal belongings.
== END 2022-01-21 13:16 | disposition home or self-care (01) | DRG 343 ==
LOC: ED 07:06 → AC 07:23
PROVIDERS: Emergency Medicine; Surgery; Admitting Provider Surgery; Emergency Provider Emergency Medicine; PCP Family Medicine; Referring Provider Emergency Medicine; Visit Provider Surgery
PROC: 0DTJ4ZZ Resection of Appendix, Percutaneous Endoscopic Approach (ICD-10-PCS; CPT 44970; principal; 2022-01-19 10:45)
DX: K35.30 Acute appendicitis with localized peritonitis, without perforation or gangrene (principal); I10 Essential (primary) hypertension; Z20.822 Contact with and (suspected) exposure to COVID-19; Z87.891 Personal history of nicotine dependence
CPT/HCPCS: 36415; 44970; 74176; 80048; 80053; 83690; 85025; 87635; 96374; 96375; 96376; 99222; 99284; C9803; J1100; J1170; J1885; J2250; J2405; J2543; J2704; J3010

== ENCOUNTER → 2022-02-21 16:11 | Outpatient (CLI) | payer OTHER, SELFPAY ==
[2022-01-18 12:53] VITALS: BMI 31.8
[2022-02-21 16:28] LABS: Add Manual Diff / Slide Review NO; Basophils Absolute Auto 100 /uL (0-100); Basophils Percent Auto 0.7 % (0-2); Eosinophils Absolute Auto 100 /uL (0-450); Eosinophils Percent Auto 1.1 % (2-4); Hematocrit 37.8 % (36-46); Hemoglobin 13.1 g/dL (12.0-16.0); Lymphocytes Absolute Auto 3200 /uL (1100-4500); Mean Corpuscular HGB Conc 34.8 % (30-36); Mean Corpuscular Hemoglobin 31.8 PG (26-34); Mean Corpuscular Volume 91.4 fL (80-100); Monocytes Absolute Auto 600 /uL (0-900); Monocytes Percent Auto 8.9 % (3-14); Neutrophils Absolute Auto 3300 /uL (1500-7000); Neutrophils Percent Auto 45.3 % (50-75); Platelet Count 335 X10^3/uL (150-400); Red Blood Cell Count 4.13 X10^6/uL (4.0-5.2); Red Cell Distribution Width 12.9 % (11.6-14.8); White Blood Cell Count 7.2 X10^3/uL (4.5-11.0)
== END ==
PROVIDERS: PCP Family Medicine; Referring Provider Surgery; Visit Provider Surgery
DX: R10.9 Unspecified abdominal pain (principal)
CPT/HCPCS: 36415; 85025

== ENCOUNTER → 2022-03-15 17:03 | Outpatient (CLI) | payer OTHER, SELFPAY ==
[2022-01-18 12:53] VITALS: BMI 31.8
[2022-03-14 14:22] VITALS: BMI 31.8
--- NOTE | 2022-03-15 17:04 | DI.US.S_ITS ---
PROCEDURE: US ABDOMEN LIMITED INDICATIONS: rule out gallstones TECHNIQUE: Real-time focused scanning was performed of the abdomen, with image documentation. COMPARISON: None. FINDINGS: The gallbladder is decompressed and contracted. No gallbladder wall thickening or pericholecystic fluid. There is no sludge. No definite gallstone. An echogenic nonmobile focus abutting the gallbladder wall is favored to represent a 5 millimeter polyp. No suspicious liver abnormality. Visualized portions of the pancreas are grossly normal. No intrahepatic or extrahepatic biliary ductal dilatation IMPRESSION: Suspected 5 millimeter gallbladder polyp. Otherwise normal study. Dictated by: Javier Alcantar M.D. on 03/16/2022 at 9:55 Approved by: Javier Alcantar M.D. on 03/16/2022 at 9:56
== END ==
PROVIDERS: PCP Family Medicine; Referring Provider Surgery; Visit Provider Surgery
DX: R10.31 Right lower quadrant pain (principal)
CPT/HCPCS: 76705

== ENCOUNTER → 2022-04-13 10:24 | Outpatient (CLI) | payer OTHER, SELFPAY ==
[2022-03-27 15:26] VITALS: BMI 31.8
--- NOTE | 2022-04-13 10:25 | DI.CT.S_ITS ---
PROCEDURE: CT ABDOMEN PELVIS W CON INDICATIONS: Right lower quadrant pain TECHNIQUE: After the administration of oral and IV contrast, axial sections were acquired from the lung bases to the pubic symphysis. Coronal and sagittal reformats were performed. For radiation dose reduction, the following was used: automated exposure control, adjustment of mA and/or kV according to patient size. COMPARISON: [facility], CT, CT ABDOMEN PELVIS WO CON, 01/18/2022, 5:39. FINDINGS: Image quality: Excellent. Lung bases: Unremarkable. Heart: No significant findings. ABDOMEN: Liver: Small cyst in the liver are unchanged. Gallbladder: Unremarkable. Biliary ducts: Unremarkable. Pancreas: Unremarkable. Spleen: Unremarkable. Adrenal Glands: Unremarkable. Kidneys and Ureters: Unremarkable. Stomach and Bowel: Stomach, small bowel loops, and colon are unremarkable. Appendix is absent. No fluid collection. Peritoneum: No abnormal intraperitoneal fluid. No free air. Ventral Wall: No hernia. Abdominal Nodes: No retroperitoneal or mesenteric adenopathy by size criteria. Vessels: Aorta and inferior vena cava are normal in size. PELVIS: Pelvic Organs: Uterus is absent. Bladder: No stones. Pelvic Nodes: No enlarged lymph nodes. Miscellaneous: No inguinal hernias are seen. Bones: No suspicious lesion. IMPRESSION: Source of abdominal pain is not identified. No free fluid. Post appendectomy. Dictated by: Prashant Grossman M.D. on 04/13/2022 at 13:41 Approved by: Prashant Grossman M.D. on 04/13/2022 at 13:46
== END ==
PROVIDERS: PCP Family Medicine; Referring Provider Surgery; Visit Provider Surgery
DX: R10.31 Right lower quadrant pain (principal)
CPT/HCPCS: 74177; Q9967

== ENCOUNTER 2022-06-09 18:52 | Emergency (ER) | payer OTHER, SELFPAY ==
[2022-03-27 15:26] VITALS: BMI 31.8
[2022-06-09 19:13] VITALS: BP 182/97; PULSE 83; RESP 18; TEMP 37.2; O2SAT 96; BMI 31.3
--- NOTE | 2022-06-09 20:46 | ED.GENADULT ---
HPI - General Adult General Chief complaint: Extremity Injury, Upper Stated complaint: Cellulitus in Rt Thumb Time Seen by Provider: 06/09/22 20:32 Source: patient Mode of arrival: Ambulatory History of Present Illness HPI narrative: Patient is a 56-year-old female who was seen yesterday at an outside facility where she was diagnosed with a right thumb infection. Was placed on Keflex. Has had 4 doses of this which is equivalent to 24 hours. Is here because she is continued to have swelling to her right thumb. She is tolerating antibiotics. No known specific injury. Related Data Home Medications Medication Instructions Recorded Confirmed cetirizine 10 mg tablet 10 mg PO QDAYP PRN Allergy 10/28/16 04/16/22 Symptoms ##0 lisinopril 2.5 mg tablet 1.25 mg PO QDAY ##0 10/28/16 04/16/22 Previous Rx's Medication Instructions Recorded estradiol 0.01% (0.1 mg/gram) 1 g vaginal DAILY Vaginal atrophy 11/04/20 vaginal cream #42.5 grams acetaminophen 300 mg-codeine 30 mg 1 tab PO Q6H PRN pain #12 tabs 01/24/22 tablet Allergies Allergy/AdvReac Type Severity Reaction Status Date / Time buspirone [From BUSPAR] Allergy Unknown Verified 04/16/22 14:52 levofloxacin [LEVOFLOXACIN] Allergy Unknown Verified 04/16/22 14:52 pseudoephedrine Allergy Unknown Verified 04/16/22 14:52 [From SUDAFED] Sulfa (Sulfonamide Allergy Unknown Verified 04/16/22 14:52 Antibiotics) [SULFA (SULFONAMIDE ANTIBIOTICS)] morphine AdvReac Hypotension Verified 04/16/22 14:52 Review of Systems Musculoskeletal Musculoskeletal: Reports system reviewed and no additional complaints, except as documented Integumentary/Breasts Skin/Breast: Reports system reviewed and no additional complaints, except as documented Neurologic Neurologic: Reports system reviewed and no additional complaints, except as documented Patient History Medical History Anemia (~2005) Anxiety (~1988) Carpal tunnel syndrome (~2007) Cervical somatic dysfunction Chicken pox (~1974) Chronic back pain (~1998) Cranial somatic dysfunction Degenerative disc disease (~1998) Depression (~1999) Endometriosis (~1990) GERD (gastroesophageal reflux disease) (~2007) Hearing loss (~2014) Hypertension (~2005) Mumps (~1975) Neck pain Osteoarthritis (~2007) Shortness of breath Situational anxiety Stressful life events affecting family and household Tension headache Thoracic region somatic dysfunction Thyroid nodule (~2013) Tinnitus (~2014) Vision disorder Surgical History Anesthesia History of cystocele (~2012) History of hysterectomy (~2007) History of left breast biopsy (~1988) Family History Father History of heart disease Hypertension Hyperlipidemia Mental health problem Mother Lymphoma Cancer Grandfather History of heart disease Grandmother History of heart disease Grandfather History of emphysema Grandmother Stroke Social History household members: spouse Smoking Status: Former smoker alcohol intake: current Smoking Status: Former smoker alcohol intake frequency: a few times a month Substance Use Type: marijuana Exam Initial Vital Signs Initial Vital Signs: Vital Signs Temperature 98.9 F 06/09/22 19:13 Pulse Rate 83 06/09/22 19:13 Respiratory Rate 18 06/09/22 19:13 Blood Pressure 182/97 H 06/09/22 19:13 Pulse Oximetry 96 06/09/22 19:13 Oxygen Delivery Method 06/09/22 19:13 Cardio Pulses: radial pulses present on the right Skin Other: Patient with swelling to the side of the right thumbnail and also swelling to the pad of the right thumb. Neuro Sensory Exam: no sensory deficits noted Extrem Other: Some limited range of motion at the IP joint of the right thumb secondary to the swelling the distal aspect. Procedures Nerve Block Nerve Block 1: Local Anesthetic: bupivacaine 0.25% Amount of anesthesia used (mL): 6 Side: right Nerve Blocks: digital Procedure Successful: Yes Patient Tolerated Procedure: Well and No complications Course Vital Signs Vital signs: Vital Signs - 8 hr 06/09/22 19:13 Temperature 98.9 F Pulse Rate 83 Respiratory Rate 18 Blood Pressure 182/97 H Pulse Oximetry 96 Oxygen Delivery Method Room Air Medical Decision Making MDM Narrative Medical decision making narrative: Patient is currently on antibiotics and she certainly has a paronychia however there is swelling in the pad of the thumb which is somewhat concerning for a Felon. A digital nerve block was obtained and attempted to drain any abscess however was no purulent material that came from the pad of the thumb. I suspect that the swelling is related to the paronychia which I did drain. Low suspicion for flexor tenosynovitis given her presentation. The limited range of motion of the IP joint is because of the swelling. She is only been on the antibiotics for 4 doses which is equivalent to 24 hours. Will have her continue with these antibiotics. She was given return precautions and follow-up instructions. She expressed understanding and agreement Discharge Plan Departure Patient Disposition: Home Clinical Impression: Paronychia Instructions: DI for Paronychia Activity Restrictions/Additional Instructions: I recommend that you continue to take your current course of antibiotics as directed. Your probably going to need to keep a bandage over your thumb for the next couple days. Expect some oozing from the area. Return to the emergency department for any worsening symptoms. Prescriptions: No Action cetirizine 10 MG tablet 10 mg PO QDAYP PRN (Reason: Allergy Symptoms) Qty: 0 lisinopril 2.5 MG tablet 1.25 mg PO QDAY Qty: 0 estradiol 0.01 % (0.1 mg/gram) cream 1 g vaginal DAILY Qty: 42.5 0RF Rx Instructions: for 14 days acetaminophen-codeine 300-30 mg tablet 1 tab PO Q6H PRN (Reason: pain) Qty: 12 0RF Referrals: Jasper Sharma DO [Primary Care Provider] - Visit Report Forms: Patient Portal/API
== END 2022-06-09 22:24 | disposition home or self-care (01) ==
PROVIDERS: Emergency Provider Emergency Medicine; PCP Family Medicine
DX: L03.011 Cellulitis of right finger (principal)
CPT/HCPCS: 64450; 99281; 99283

== ENCOUNTER → 2022-08-09 10:39 | Outpatient (CLI) | payer OTHER, SELFPAY ==
[2022-03-27 15:26] VITALS: BMI 31.8
--- NOTE | 2022-08-09 10:41 | DI.MG.S_ITS ---
BILATERAL DIGITAL SCREENING MAMMOGRAM 3D/2D WITH CAD: 08/09/2022 CLINICAL: Routine screening. Comparison is made to exams dated: 02/20/2021 mammogram - [facility], 06/02/2019 mammogram - [facility], and 11/12/2017 mammogram - [facility]. There are scattered areas of fibroglandular density in both breasts (category b / 25%-50% glandular tissue). Current study was also evaluated with a Computer Aided Detection (CAD) system. No significant masses, calcifications, or other findings are seen in either breast. There has been no significant interval change. IMPRESSION: NEGATIVE There is no mammographic evidence of malignancy. A 1 year screening mammogram is recommended. Based on the Tyrer Cuzick model (a risk assessment model) the patient's lifetime risk is 9.8% and her 10 year risk is 3.0%. According to the ACR, ACS, and NCCN guidelines, an annual breast MRI exam along with mammogram is recommended if the patient's lifetime risk is 20% or greater. This exam was interpreted at Station ID: [id number]. NOTE: For mammograms, a report in lay terms will be sent to the patient. Approximately 15% of breast malignancies will not be visualized mammographically. In the management of a palpable breast mass, a negative mammogram must not discourage biopsy of a clinically suspicious lesion. Electronically Signed By: Javier Alcantar M.D., jr/chas:08/09/2022 13:11:27 letter sent: Normal Exam ACR BI-RADS Category 1: Negative [id number]
== END ==
PROVIDERS: PCP Family Medicine; Referring Provider Family Medicine; Visit Provider Family Medicine
DX: Z12.31 Encounter for screening mammogram for malignant neoplasm of breast (principal)
CPT/HCPCS: 77063; 77067

== ENCOUNTER → 2022-09-17 11:15 | Outpatient (CLI) | payer OTHER, SELFPAY ==
[2022-03-27 15:26] VITALS: BMI 31.8
--- NOTE | 2022-09-17 11:18 | DI.US.S_ITS ---
PROCEDURE: US ABDOMEN LIMITED INDICATIONS: 6 MONTH FOLLOW UP GALLBLADDER POLYP TECHNIQUE: Real-time scanning was performed of the abdominal and retroperitoneal organs, with image documentation. COMPARISON: [facility], US, US ABDOMEN LIMITED, 03/15/2022, 17:34. FINDINGS: Liver: Normal size. Slightly increased echogenicity, likely mild steatosis. Gallbladder: Stable non dependent filling defect along the gallbladder wall measuring 5 mm. Biliary ducts: Intrahepatic bile ducts are non-dilated. Extrahepatic bile duct caliber measures 5 mm. Normal is 6-7 mm or less in diameter, or 10 mm or less post-cholecystectomy. Pancreas: Visualized portions of the pancreas are sonographically normal. Right kidney: Unremarkable. IMPRESSION: Stable nondependent lesion adherent to the gallbladder wall, presumably a small polyp. According to consensus data, this is benign and no follow-up is indicated. Dictated by: Jonas Alexander M.D. on 09/17/2022 at 12:32 Approved by: Jonas Alexander M.D. on 09/17/2022 at 12:34
== END ==
PROVIDERS: PCP Family Medicine; Referring Provider Surgery; Visit Provider Surgery
DX: K82.4 Cholesterolosis of gallbladder (principal)
CPT/HCPCS: 76705

== ENCOUNTER 2022-10-09 04:17 | Emergency (ER) | payer OTHER, SELFPAY ==
[2022-03-27 15:26] VITALS: BMI 31.8
[2022-10-09] VITALS (8 sets, daily range): BP systolic 158–175; BP diastolic 80–91; PULSE 73–94; RESP 18–20; TEMP 37; O2SAT 98–100; BMI 31.1
--- NOTE | 2022-10-09 04:45 | DI.RAD.S_ITS ---
PROCEDURE: XR CHEST 1V INDICATIONS: chest pain TECHNIQUE: One view of the chest was acquired. COMPARISON: None. FINDINGS: Surgical changes and devices: None. Lungs and pleura: Lungs are clear. No pleural effusions or pneumothorax. Mediastinum: Mediastinal contours appear normal. Heart size is normal. Bones and chest wall: No suspicious bony lesions. Overlying soft tissues appear unremarkable. IMPRESSION: No acute cardiopulmonary pathology. No discrepancies. Dictated by: John Paul Chu M.D. on 10/09/2022 at 8:36 Approved by: John Paul Chu M.D. on 10/09/2022 at 8:41
[2022-10-09 05:27] LABS: Add Manual Diff / Slide Review NO; Basophils Absolute Auto 0 /uL (0-100); Basophils Percent Auto 0.4 % (0-2); Eosinophils Absolute Auto 100 /uL (0-450); Eosinophils Percent Auto 0.7 % (2-4); Hematocrit 38.3 % (36-46); Hemoglobin 13.3 g/dL (12.0-16.0); Lymphocytes Absolute Auto 1800 /uL (1100-4500); Lymphocytes Percent Auto 18.8 % (25-40); Mean Corpuscular HGB Conc 34.6 % (30-36); Mean Corpuscular Hemoglobin 31.3 PG (26-34); Mean Corpuscular Volume 90.4 fL (80-100); Monocytes Absolute Auto 600 /uL (0-900); Neutrophils Absolute Auto 7100 /uL (1500-7000); Neutrophils Percent Auto 74.1 % (50-75); Platelet Count 388 X10^3/uL (150-400); Red Blood Cell Count 4.24 X10^6/uL (4.0-5.2); Red Cell Distribution Width 12.2 % (11.6-14.8); White Blood Cell Count 9.6 X10^3/uL (4.5-11.0)
[2022-10-09 05:32] LABS: Alanine Aminotransferase 21 IU/L (<35); Albumin 4.8 g/dL (3.5-5.0); Albumin Globulin Ratio 1.4 (1.0-2.8); Alkaline Phosphatase 67 U/L (38-126); Aspartate Aminotransferase 26 IU/L (14-36); BUN Creatinine Ratio 18.5 (6-22); Bilirubin Total 0.6 mg/dL (0.2-1.3); Blood Urea Nitrogen 12 mg/dL (7-17); Calcium 9.1 mg/dL (8.4-10.2); Carbon Dioxide 25 mmol/L (22-32); Chloride 99 mmol/L (98-107); Creatine Kinase 72 U/L (30-135); Estimated Glomerular Filt Rate > 60 mL/min (>60); Globulin 3.5 g/dL (1.7-4.1); Glucose 108 mg/dL (70-100); HEMOLYSIS < 15 (0-50); Lipase 134 U/L (23-300); Potassium 3.6 mmol/L (3.4-5.1); Sodium 134 mmol/L (137-145); Total Protein 8.3 g/dL (6.3-8.2)
--- NOTE | 2022-10-09 05:41 | ED_ITS ---
HPI - General Adult General Chief complaint: Hypertension Stated complaint: High Blood Pressure Time Seen by Provider: 10/09/22 04:28 Source: patient Mode of arrival: Ambulatory History of Present Illness HPI narrative: Patient 56-year-old female history of hypertension presenting today with elevated blood pressure. She reports that she woke up from sleep having some left arm tingling which she does sometimes. She has chronic back and neck pain. She went to physical therapy yesterday where they did some extra things. However she feels like her left arm is aching. She relates as have any chest pain or shortness of breath. She reports that she can just tell when her blood pressure is high so she woke up and took her blood pressure was in the 170s. It remains 175/89 here in the emergency department. She has no nausea vomiting epigastric pain diaphoresis headache numbness tingling weakness visual changes she also reports that she is trying to control her blood pressure however taking her lisinopril. However when she saw that her blood pressure was that high she took half a lisinopril tablet. Related Data Home Medications Medication Instructions Recorded Confirmed cetirizine 10 mg tablet 10 mg PO QDAYP PRN Allergy 10/28/16 04/16/22 Symptoms ##0 lisinopril 2.5 mg tablet 1.25 mg PO QDAY ##0 10/28/16 04/16/22 Previous Rx's Medication Instructions Recorded estradiol 0.01% (0.1 mg/gram) 1 g vaginal DAILY Vaginal atrophy 11/04/20 vaginal cream #42.5 grams acetaminophen 300 mg-codeine 30 mg 1 tab PO Q6H PRN pain #12 tabs 01/24/22 tablet Allergies Allergy/AdvReac Type Severity Reaction Status Date / Time buspirone [From BUSPAR] Allergy Unknown Verified 04/16/22 14:52 levofloxacin [LEVOFLOXACIN] Allergy Unknown Verified 04/16/22 14:52 pseudoephedrine Allergy Unknown Verified 04/16/22 14:52 [From SUDAFED] Sulfa (Sulfonamide Allergy Unknown Verified 04/16/22 14:52 Antibiotics) [SULFA (SULFONAMIDE ANTIBIOTICS)] morphine AdvReac Hypotension Verified 04/16/22 14:52 Review of Systems Review of Systems ROS Unobtainable: All systems reviewed & are unremarkable except as noted in HPI and below Patient History Medical History Anemia (~2005) Anxiety (~1988) Carpal tunnel syndrome (~2007) Cervical somatic dysfunction Chicken pox (~1974) Chronic back pain (~1998) Cranial somatic dysfunction Degenerative disc disease (~1998) Depression (~1999) Endometriosis (~1990) GERD (gastroesophageal reflux disease) (~2007) Hearing loss (~2014) Hypertension (~2005) Mumps (~1975) Neck pain Osteoarthritis (~2007) Shortness of breath Situational anxiety Stressful life events affecting family and household Tension headache Thoracic region somatic dysfunction Thyroid nodule (~2013) Tinnitus (~2014) Vision disorder Surgical History Anesthesia History of cystocele (~2012) History of hysterectomy (~2007) History of left breast biopsy (~1988) Family History Father History of heart disease Hypertension Hyperlipidemia Mental health problem Mother Lymphoma Cancer Grandfather History of heart disease Grandmother History of heart disease Grandfather History of emphysema Grandmother Stroke Social History household members: spouse Smoking Status: Former smoker alcohol intake: current Smoking Status: Former smoker alcohol intake frequency: a few times a month Substance Use Type: marijuana Exam Initial Vital Signs Initial Vital Signs: Vital Signs Temperature 98.6 F 10/09/22 04:28 Pulse Rate 89 10/09/22 04:28 Respiratory Rate 18 10/09/22 04:28 Blood Pressure 175/89 H 10/09/22 04:28 Pulse Oximetry 99 10/09/22 04:28 Oxygen Delivery Method Room Air 10/09/22 04:28 GENERAL: Alert pleasant 56-year-old female and in no acute distress. HEENT: Head atraumatic,EOMI, pupils reactive, face symmetric, moist mucous membranes CARDIOVASCULAR: Regular rate and rhythm without murmurs, rubs or gallops. RESPIRATORY: Breath sounds equal bilaterally, no wheezes rales or rhonchi. ABDOMEN: Soft, nontender. Normoactive bowel sounds all 4 quadrants. No guarding or rebound. EXTREMITIES: Normal range of motion, no clubbing or edema. Neurovascularly intact NEUROLOGICAL: Alert and oriented x4.Normal gait and speech. SKIN: Warm, dry, no laceration, no petechiae, no rashes or lesions. Course Orders Ordered: ED Orders 10/09/22 04:45 XR chest 1V Stat 10/09/22 05:08 Complete Blood Count AUTO DIFF Stat Comprehensive Metabolic Panel Stat Lipase Stat Troponin & CK Cardiac Panel Stat Vital Signs Vital signs: Vital Signs - 8 hr 10/09/22 04:28 10/09/22 04:35 Temperature 98.6 F Pulse Rate 89 86 Respiratory Rate 18 20 Blood Pressure 175/89 H 170/80 H Pulse Oximetry 99 100 Oxygen Delivery Method Room Air Room Air Medical Decision Making Lab Data 10/09/22 05:08 10/09/22 05:08 Labs: Lab Results 10/09/22 10/09/22 Range/Units 05:08 05:08 WBC 9.6 (4.5-11.0) X10^3/uL RBC 4.24 (4.0-5.2) X10^6/uL Hgb 13.3 (12.0-16.0) g/dL Hct 38.3 (36-46) % MCV 90.4 (80-100) fL MCH 31.3 (26-34) PG MCHC 34.6 (30-36) % RDW 12.2 (11.6-14.8) % Plt Count 388 (150-400) X10^3/uL Neut % (Auto) 74.1 (50-75) % Lymph % (Auto) 18.8 L (25-40) % Brewster % (Auto) 6.0 (3-14) % Eos % (Auto) 0.7 L (2-4) % Baso % (Auto) 0.4 (0-2) % Neut # (Auto) 7100 H (4223-2993) /uL Lymph # (Auto) 1800 (9755-2888) /uL Brewster # (Auto) 600 (0-900) /uL Eos # (Auto) 100 (0-450) /uL Baso # (Auto) 0 (0-100) /uL Sodium 134 L (137-145) mmol/L Potassium 3.6 (3.4-5.1) mmol/L Chloride 99 (98-107) mmol/L Carbon Dioxide 25 (22-32) mmol/L BUN 12 (7-17) mg/dL Creatinine 0.65 (0.52-1.04) mg/dL Estimated GFR > 60 (>60) mL/min BUN/Creatinine Ratio 18.5 (6-22) Glucose 108 H (70-100) mg/dL Calcium 9.1 (8.4-10.2) mg/dL Total Bilirubin 0.6 (0.2-1.3) mg/dL AST 26 (14-36) IU/L ALT 21 (<35) IU/L Alkaline Phosphatase 67 (38-126) U/L Total Creatine Kinase 72 (30-135) U/L CK-MB (CK-2) TNP CK-MB (CK-2) Rel Index TNP Total Protein 8.3 H (6.3-8.2) g/dL Albumin 4.8 (3.5-5.0) g/dL Globulin 3.5 (1.7-4.1) g/dL Albumin/Globulin Ratio 1.4 (1.0-2.8) Lipase 134 (23-300) U/L Point of Care Testing Test Results Negative Urine Dip Bedside Urine Glucose Negative Bedside Urine Bilirubin - Negative Bedside Urine Ketone - Negative Urine Specific [place] 1.005 Bedside Urine Occult Blood +/- Bedside Urine pH 6.0 Bedside Urine Protein - Negative Bedside Urine Urobilinogen - Negative Bedside Urine Nitrite - Negative Bedside Urine Leukocytes - Negative Esterase Point of care testing: Point of Care Testing Test Results Negative Urine Dip Bedside Urine Glucose Negative Bedside Urine Bilirubin - Negative Bedside Urine Ketone - Negative Urine Specific [place] 1.005 Bedside Urine Occult Blood +/- Bedside Urine pH 6.0 Bedside Urine Protein - Negative Bedside Urine Urobilinogen - Negative Bedside Urine Nitrite - Negative Bedside Urine Leukocytes - Negative Esterase Imaging Data Chest x-ray: Radiologist's Impression: Preliminary report no active cardiopulmonary pathology ECG Data Interpretation: Normal sinus rhythm rate 88 TN interval 142 QRS [address] changes no priors so compare. MDM Narrative Medical decision making narrative: Patient 56-year-old female history of hypertension presenting today concerning for hypertension. She has chronic ongoing neck pain for which she was at physical therapy for previously. She does get some numbness tingling down her arm on a regular basis she had some tonight. She could feel that her blood pressure was high. At this time blood pressure is actually improved. There is no evidence of end-organ damage. She is really not having any signs of acute coronary syndrome. She thought that her arm was a little bit tight I do not think this is related to DC. She is a negative troponin normal EKG. We talked about lifestyle management along with taking medications. Discharge Plan Departure Patient Disposition: Home Clinical Impression: Hypertension Instructions: DI for High Blood Pressure Activity Restrictions/Additional Instructions: *You have been diagnosed with high blood pressure *What to do: At this time I do recommend that you start taking her lisinopril again, or you can monitor your blood pressure 1 to 2 times daily talk with your PCP *Continue to take medications as directed *Follow up with your primary care provider in 2-3 days or call [phone] *Return to ER if you should have increasing chest pain headache shortness of breath arm pain [or] any new, worsening or concerning symptoms Prescriptions: No Action cetirizine 10 MG tablet 10 mg PO QDAYP PRN (Reason: Allergy Symptoms) Qty: 0 lisinopril 2.5 MG tablet 1.25 mg PO QDAY Qty: 0 estradiol 0.01 % (0.1 mg/gram) cream 1 g vaginal DAILY Qty: 42.5 0RF Rx Instructions: for 14 days acetaminophen-codeine 300-30 mg tablet 1 tab PO Q6H PRN (Reason: pain) Qty: 12 0RF Referrals: Jasper Sharma DO [Primary Care Provider] - Stand Alone Forms: Patient Portal/API
[2022-10-09 05:44] LABS: Troponin I < 0.012 ng/mL (0.01-0.034)
== END 2022-10-09 06:00 | disposition home or self-care (01) ==
PROVIDERS: Emergency Provider Emergency Medicine; PCP Family Medicine
DX: I10 Essential (primary) hypertension (principal); R07.9 Chest pain, unspecified; M54.2 Cervicalgia
CPT/HCPCS: 36415; 71045; 80053; 81003; 81025; 82550; 83690; 84484; 85025; 93005; 93010; 99283; 99284

== ENCOUNTER → 2023-11-13 07:48 | Outpatient (CLI) | payer OTHER, SELFPAY ==
[2022-03-27 15:26] VITALS: BMI 31.8
--- NOTE | 2023-11-13 07:50 | DI.MG.S_ITS ---
BILATERAL DIGITAL SCREENING MAMMOGRAM 3D/2D WITH CAD: 11/13/2023 CLINICAL: Routine screening. Comparison is made to exams dated: 08/09/2022 mammogram - [facility], 02/20/2021 mammogram - [facility], and 06/02/2019 mammogram - [facility] [place]. There are scattered areas of fibroglandular density in both breasts (category b / 25%-50% glandular tissue). Current study was also evaluated with a Computer Aided Detection (CAD) system. There are benign post operative findings in the left breast. No significant masses, calcifications, or other findings are seen in either breast. There has been no significant interval change. IMPRESSION: BENIGN There is no mammographic evidence of malignancy. A 1 year screening mammogram is recommended. Based on the Tyrer Cuzick model (a risk assessment model) the patient's lifetime risk is 9.5% and her 10 year risk is 3.3%. According to the ACR, ACS, and NCCN guidelines, an annual breast MRI exam along with mammogram is recommended if the patient's lifetime risk is 20% or greater. This exam was interpreted at Station ID: [id number]. NOTE: For mammograms, a report in lay terms will be sent to the patient. Approximately 15% of breast malignancies will not be visualized mammographically. In the management of a palpable breast mass, a negative mammogram must not discourage biopsy of a clinically suspicious lesion. Electronically Signed By: Prashant hernandes/chas:11/13/2023 15:38:20 letter sent: Normal Exam ACR BI-RADS Category 2: Benign Finding(s) 3342F
== END ==
LOC: MAMMO 07:49
PROVIDERS: PCP Family Medicine; Referring Provider Family Medicine; Visit Provider Family Medicine
DX: Z12.31 Encounter for screening mammogram for malignant neoplasm of breast (principal); R92.323 Mammographic fibroglandular density, bilateral breasts
CPT/HCPCS: 77063; 77067

== ENCOUNTER 2023-11-27 08:15 | Outpatient (RCR) | payer OTHER, SELFPAY ==
[2022-03-27 15:26] VITALS: BMI 31.8
--- NOTE | 2023-11-05 17:07 | PT.OIE ---
Current Diagnoses Pelvic muscle wasting (11/05/23) Other specified noninflammatory disorders of vagina (11/05/23) Unspecified urinary incontinence (11/05/23) Strain of adductor muscle, fascia and tendon of right thigh, initial encounter (11/05/23) Past Medical History (Last Reviewed 10/09/22 @ 05:43 by Jeana Vizcarra DO) Anemia (~2005) Anxiety (~1988) Carpal tunnel syndrome (~2007) Cervical somatic dysfunction Chicken pox (~1974) Chronic back pain (~1998) Cranial somatic dysfunction Degenerative disc disease (~1998) Depression (~1999) Endometriosis (~1990) GERD (gastroesophageal reflux disease) (~2007) Hearing loss (~2014) Hypertension (~2005) Mumps (~1975) Neck pain Osteoarthritis (~2007) Shortness of breath Situational anxiety Stressful life events affecting family and household Tension headache Thoracic region somatic dysfunction Thyroid nodule (~2013) Tinnitus (~2014) Vision disorder Past Surgical History (Last Reviewed 10/09/22 @ 05:43 by Jeana Vizcarra DO) Anesthesia History of cystocele (~2012) History of hysterectomy (~2007) History of left breast biopsy (~1988) Visit Care Team Role Provider Type Jasper Sharma DO Primary Care Provider Non-Staff Specialty: Family Practice Address: [address] [place] [address], [id number] Email: Jarrett Arevalo MD Family Provider Non-Staff Specialty: Medical Address: [address] [place] [address], [phone] Email: Roman La PA-C Attending Provider Non-Staff Referring Provider Specialty: Medical Address: [address] [place] [address], [id number] Email: Physical Therapy Initial Evaluation PT-OP-A Visit Information Start: 11/05/23 08:11 Freq: Status: Active Protocol: Document 11/05/23 09:00 [facility] (Rec: 11/05/23 09:11 [facility] [id number]) Out-Patient Physical Therapy Visit Information Visit Information Visit Type Initial Evaluation Visit Start Time 09:00 Visit Stop Time 09:45 Visit Number 1 Evaluation Information Evaluation Date 11/05/23 PT-OP-B Current Condition Start: 11/05/23 08:11 Freq: Status: Active Protocol: Document 11/05/23 09:00 [facility] (Rec: 11/05/23 09:11 [facility] [id number]) Current Condition History of Current Condition Onset Date July 2023 Current Complaints urethral discomfort, pelvic pain, stress incontinence History of Current Condition pt notes she was trying to get back to the gym and was doing the hip adductor and abductor machine, she started feeling symptoms of UTI. She then tried to do her stretches and used the dilator and that helped a little but it really was hurting. This all started in July. She describes a buring sensation with voiding . Urine testing has been negative but she feesl like the spasm cycle is starting up again. She has a urology visit on November [address] Casiano She is feeling pelvic pressure and feels her prolapse is a lot worse. She did have a cystecele repair in 2011. She has to push inorder to fully void. She has occasional leakage with a cough or sneeze . Patricia notes she gets the most amount of discomfort around the urethra especially with intercourse Treatment Goals Patient/Caregiver Goals Patricia's goals are to reduce pain and muscle tightness and to decrease urinary stress incontinence PT-OP-C Subjective Start: 11/05/23 08:11 Freq: Status: Active Protocol: Document 11/05/23 09:00 [facility] (Rec: 11/05/23 10:21 [facility] [id number]) Patient Questionnaires Pelvic Pain and Urgency/Frequency Patient Symptom Scale Pelvic Pain Score 14 OP-PT Pain Assessment Pain Assessment Grid Paper Pain Assessment Grid Completed Yes Location low back pain Intensity 4 Scale Used Numeric (0 - 10) urethral pain Pain Location Details urethra Intensity 4 Scale Used Numeric (0 - 10) PT-OP-F Manual Assessment Start: 11/05/23 08:11 Freq: Status: Active Protocol: Document 11/05/23 09:00 [facility] (Rec: 11/05/23 10:23 [facility] [id number]) Manual Assessments Soft Tissue Assessment Soft Tissue Mobility Assessment right sided adductor guarding and tightness at the attachments to the pubic bone tightness of the suprapubic fascia and bladder left levator ani guarding from 3-6 on the pelvic clock PT-OP-I Pelvic Floor Start: 11/05/23 08:11 Freq: Status: Active Protocol: Document 11/05/23 09:00 [facility] (Rec: 11/05/23 10:20 [facility] [id number]) Pelvic Floor Assessment Urine Pelvic Floor Surgery Yes Urinary Symptoms Pain Other Urinary Symptoms urethral pain and burning, slow hesitant urinary stream unless she pushes Leakage Size Small Leakage Cause Cough,Sneeze Nocturia 1 Pelvic Clock Pelvic Clock 12-3 Atrophy Pelvic Clock 3-6 Atrophy,Guarding,Tenderness Pelvic Clock 6-9 Atrophy Pelvic Clock 9-12 Atrophy Pelvic Clock Other tenderness to palpation at the urethra and the urethra feels swollen along with the tissue of the anterior pelvic floor and suprapubic region Prolapse Urethrocele Grade 1 Rectocele Grade 1 Contraction Ability Voluntary Contraction Weak Voluntary Relaxation Weak Manual Muscle Testing Left 2 Manual Muscle Testing Right 2 Manual Muscle Testing Anterior 2 Manual Muscle Testing Posterior 2 Muscle Endurance (Seconds) 5 PT-OP-Q Treatments Start: 11/05/23 08:11 Freq: Status: Active Protocol: Document 11/05/23 09:00 [facility] (Rec: 11/05/23 10:15 [facility] [id number]) Therapeutic Exercises Supine Exercises supine pelvic floor stretch Side bilateral Reps/Minutes hold 1-2 min Other Exercises kneeling adductor stretch with hip ER Reps/Minutes x 10 reps cat cow Reps/Minutes x 10 reps go pose Reps/Minutes hold 1-2 min Manual Therapy Treatment Soft Tissue Mobilization right adductor release Mobilization Type Myofascial Release Intensity/Depth Moderate Body Position Hooklying Comments pt positioned with wedge under her pelvis to provide pelvic decompression bladder visceral mobilizations Body Location suprapubic fascia Mobilization Type Myofascial Release Intensity/Depth Moderate Body Position Hooklying Comments pt positioned with wedge under her pelvis to provide pelvic decompression PT-OP-T Assessment and Plan Start: 11/05/23 08:11 Freq: Status: Active Protocol: Document 11/05/23 09:00 [facility] (Rec: 11/05/23 10:27 [facility] [id number]) Physical Therapy Assessment Rehab Potential Rehabilitation Potential Excellent Evaluation Complexity Number of Personal Factors/Comorbidities 0 Number of Body Systems Impaired 1-2 Clinical Presentation at Evaluation Stable Impairments Impairments Activity Tolerance,Functional Activities,Pain,Soft Tissue Mobility,Strength,Tone Other Impairments urethral pain, urinary stress incontinence Goals 3 Impairment pelvic floor weakness with MMT of 2/5 and decreased endurance of the levator ani Short Term Goal (STG) Patricia is educated on pelvic floor endurance and strengthening exercises STG Duration 4 weeks Blind Cleaner Goal (LTG) Patricia decomstrates improvement in strength of the levator ani demonstrating improved strength by 1 muscle grade and she is able to sustain a pelvic floor contraction x 10 seconds LTG Duration 12 weeks 2 Impairment spasm and tightness of the right adductor attachments to the pubic bone Short Term Goal (STG) Patricia is shown a home program for stretching the adductors STG Duration 4 weeks Blind Cleaner Goal (LTG) stretching along with manual therapy work has helped to reduce tightness and spasm of the adductors that are contributing to pelvic pain LTG Duration 12 weeks 1 Impairment urethral pain and pelvic floor spasms making her feel as if she has a UTI causing pain with urination and with intercourse Blind Cleaner Goal (LTG) Patricia reports a overall reduction in urethral and pelvic pain and i sno longer experiencing pain with urination and with intercourse LTG Duration 12 weeks Assessment Summary Assessment Patricia is a 58 year old female with chief complaints of urethral pain and pelvic pain symptoms. She has a history of pelvic pain symptoms and was seen in PT 10 years ago. She reports she had been doing good with her home program until this July. In July she was at the gym and was doing a inner thigh exercise on the machine which caused her inner thighs to start guarding and then she started experiencing urethral pain symptoms. Pain is increased with voiding and with intercourse. She also notes leakage with cough or sneeze. With evaluation today the urethra feels swollen and it is painful to palpation. The right sided adductors are guarded and hypertonic. Patricia is able to contract her pelvic floor but is weak. She tests 2/5 MMT for all pedroza of the levator ani. Patricia lacks endurance of the levator ani to sustain a pelvic floor contraction more than a few seconds. There is guarding in the suprapubic fascia and over the bladder with assessment in the lower abdominal wall. Patricia also reports urinary leakage with strong cough and or sneeze. Patricia is a good candidate for PT working on releasing tone of the adductors, pelvic decompression to take pressure off the urethra, pelvic floor strengthening and endurance training. Physical Therapy Plan Frequency and Duration Frequency of Treatment 1x/Week Duration of treatment (weeks) 12 Plan of Care Start Date 11/05/23 Plan of Care End Date 01/28/24 Therapeutic Interventions Therapeutic Interventions Home Exercise Program,Manual Therapy,Neuromuscular Re- education,Patient/Caregiver Education,Self-Care/Home Management,Soft Tissue Mobilization,Therapeutic Exercises Modalities Biofeedback Next Visit Focus/Plan Next Note Type Treatment Note Next Visit Plan review stretches with Patricia and work on MFR techniques to decrease guarding of the right adductors as well as the suprapubic fascia. Work on pelvic floor endurance holds to see how Patricia can tolerate them. Work on positions for pelvic decompression
--- NOTE | 2023-11-05 17:07 | PT.OPPOC ---
Physical, Occupational & Speech Therapy At [facility] Current Diagnoses Pelvic muscle wasting (11/05/23) Other specified noninflammatory disorders of vagina (11/05/23) Unspecified urinary incontinence (11/05/23) Strain of adductor muscle, fascia and tendon of right thigh, initial encounter (11/05/23) Visit Care Team Role Provider Type Jasper Sharma DO Primary Care Provider Non-Staff Specialty: Family Practice Address: [address] [place] [address], [id number] Email: Jarrett Arevalo MD Family Provider Non-Staff Specialty: Medical Address: [address] [place] [address], [phone] Email: Roman La PA-C Attending Provider Non-Staff Referring Provider Specialty: Medical Address: [address] [place] [address], [id number] Email: Plan Of Care PT-OP-T Assessment and Plan Start: 11/05/23 08:11 Freq: Status: Active Protocol: Document 11/05/23 09:00 [facility] (Rec: 11/05/23 10:27 [facility] [id number]) Physical Therapy Assessment Rehab Potential Rehabilitation Potential Excellent Evaluation Complexity Number of Personal Factors/Comorbidities 0 Number of Body Systems Impaired 1-2 Clinical Presentation at Evaluation Stable Impairments Impairments Activity Tolerance,Functional Activities,Pain,Soft Tissue Mobility,Strength,Tone Other Impairments urethral pain, urinary stress incontinence Goals 3 Impairment pelvic floor weakness with MMT of 2/5 and decreased endurance of the levator ani Short Term Goal (STG) Patricia is educated on pelvic floor endurance and strengthening exercises STG Duration 4 weeks Alf Goal (LTG) Patricia demonstrates improvement in strength of the levator ani demonstrating improved strength by 1 muscle grade and she is able to sustain a pelvic floor contraction x 10 seconds LTG Duration 12 weeks 2 Impairment spasm and tightness of the right adductor attachments to the pubic bone Short Term Goal (STG) Patricia is shown a home program for stretching the adductors STG Duration 4 weeks Alf Goal (LTG) stretching along with manual therapy work has helped to reduce tightness and spasm of the adductors that are contributing to pelvic pain LTG Duration 12 weeks 1 Impairment urethral pain and pelvic floor spasms making her feel as if she has a UTI causing pain with urination and with intercourse Production Material Coordinator Goal (LTG) Patricia reports a overall reduction in urethral and pelvic pain and is no longer experiencing pain with urination and with intercourse LTG Duration 12 weeks Assessment Summary Assessment Patricia is a 58 year old female with chief complaints of urethral pain and pelvic pain symptoms. She has a history of pelvic pain symptoms and was seen in PT 10 years ago. She reports she had been doing good with her home program until this July. In July she was at the gym and was doing a inner thigh exercise on the machine which caused her inner thighs to start guarding and then she started experiencing urethral pain symptoms. Pain is increased with voiding and with intercourse. She also notes leakage with cough or sneeze. With evaluation today the urethra feels swollen and it is painful to palpation. The right sided adductors are guarded and hypertonic. Patricia is able to contract her pelvic floor but is weak. She tests 2/5 MMT for all pedroza of the levator ani. Patricia lacks endurance of the levator ani to sustain a pelvic floor contraction more than a few seconds. There is guarding in the suprapubic fascia and over the bladder with assessment in the lower abdominal wall. Patricia also reports urinary leakage with strong cough and or sneeze. Patricia is a good candidate for PT working on releasing tone of the adductors, pelvic decompression to take pressure off the urethra, pelvic floor strengthening and endurance training. Physical Therapy Plan Frequency and Duration Frequency of Treatment 1x/Week Duration of treatment (weeks) 12 Plan of Care Start Date 11/05/23 Plan of Care End Date 01/28/24 Therapeutic Interventions Therapeutic Interventions Home Exercise Program,Manual Therapy,Neuromuscular Re- education,Patient/Caregiver Education,Self-Care/Home Management,Soft Tissue Mobilization,Therapeutic Exercises Modalities Biofeedback Next Visit Focus/Plan Next Note Type Treatment Note Next Visit Plan review stretches with Patricia and work on MFR techniques to decrease guarding of the right adductors as well as the suprapubic fascia. Work on pelvic floor endurance holds to see how Patricia can tolerate them. Work on positions for pelvic decompression Plan of Care Dates Plan of Care Start Date 11/05/23 Plan of Care End Date 01/28/24 Electronically Signed by: Mela Akers, PT 11/05/23 [id number] If you are in agreement with this Plan of Care, please return a signed and dated copy. I have reviewed this Plan of Care and certify that the skilled therapy services above are required to meet the patient?s needs. Physician Signature Date Printed Name and Credentials Clinical Instructor Signature Printed Name and Credentials
--- NOTE | 2023-11-13 12:20 | PT.OTN ---
Current Diagnoses Pelvic muscle wasting (11/13/23) Other specified noninflammatory disorders of vagina (11/13/23) Unspecified urinary incontinence (11/13/23) Strain of adductor muscle, fascia and tendon of right thigh, initial encounter (11/13/23) Physical Therapy Treatment Note PT-OP-A Visit Information Start: 11/05/23 08:11 Freq: Status: Active Protocol: Document 11/13/23 08:13 [facility] (Rec: 11/13/23 08:59 [facility] [id number]) Out-Patient Physical Therapy Visit Information Visit Information Visit Type Treatment Note Visit Start Time 08:15 Visit Stop Time 09:00 Visit Number 2 PT-OP-B Current Condition Start: 11/05/23 08:11 Freq: Status: Active Protocol: Document 11/05/23 09:00 [facility] (Rec: 11/05/23 09:11 [facility] [id number]) Current Condition History of Current Condition Onset Date July 2023 Current Complaints urethral discomfort, pelvic pain, stress incontinence History of Current Condition pt notes she was trying to get back to the gym and was doing the hip adductor and abductor machine, she started feeling symptoms of UTI. She then tried to do her stretches and used the dilator and that helped a little but it really was hurting. This all started in July. She describes a buring sensation with voiding . Urine testing has been negative but she feesl like the spasm cycle is starting up again. She has a urology visit on November [address] Casiano She is feeling pelvic pressure and feels her prolapse is a lot worse. She did have a cystecele repair in 2011. She has to push inorder to fully void. She has occasional leakage with a cough or sneeze . Patricia notes she gets the most amount of discomfort around the urethra especially with intercourse Treatment Goals Patient/Caregiver Goals Patricia's goals are to reduce pain and muscle tightness and to decrease urinary stress incontinence PT-OP-C Subjective Start: 11/05/23 08:11 Freq: Status: Active Protocol: Document 11/13/23 08:13 [facility] (Rec: 11/13/23 08:59 [facility] [id number]) OP-PT Subjective Patient Comments Patient Comments pt reports she saw dr casiano and she is recommending a MRI for abdominal and pelvis region to rule out suburethral mass PT-OP-F Manual Assessment Start: 11/05/23 08:11 Freq: Status: Active Protocol: Document 11/05/23 09:00 [facility] (Rec: 11/05/23 10:23 [facility] [id number]) Manual Assessments Soft Tissue Assessment Soft Tissue Mobility Assessment right sided adductor guarding and tightness at the attachments to the pubic bone tightness of the suprapubic fascia and bladder left levator ani guarding from 3-6 on the pelvic clock PT-OP-I Pelvic Floor Start: 11/05/23 08:11 Freq: Status: Active Protocol: Document 11/05/23 09:00 [facility] (Rec: 11/05/23 10:20 [facility] [id number]) Pelvic Floor Assessment Urine Pelvic Floor Surgery Yes Urinary Symptoms Pain Other Urinary Symptoms urethral pain and burning, slow hesitant urinary stream unless she pushes Leakage Size Small Leakage Cause Cough,Sneeze Nocturia 1 Pelvic Clock Pelvic Clock 12-3 Atrophy Pelvic Clock 3-6 Atrophy,Guarding,Tenderness Pelvic Clock 6-9 Atrophy Pelvic Clock 9-12 Atrophy Pelvic Clock Other tenderness to palpation at the urethra and the urethra feels swollen along with the tissue of the anterior pelvic floor and suprapubic region Prolapse Urethrocele Grade 1 Rectocele Grade 1 Contraction Ability Voluntary Contraction Weak Voluntary Relaxation Weak Manual Muscle Testing Left 2 Manual Muscle Testing Right 2 Manual Muscle Testing Anterior 2 Manual Muscle Testing Posterior 2 Muscle Endurance (Seconds) 5 PT-OP-Q Treatments Start: 11/05/23 08:11 Freq: Status: Active Protocol: Document 11/13/23 08:13 [facility] (Rec: 11/13/23 08:59 [facility] [id number]) Therapeutic Exercises Standing Exercises standing quad stretchwith chair Reps/Minutes hold 1-2 minutes Manual Therapy Treatment Soft Tissue Mobilization right adductor release Mobilization Type Myofascial Release Intensity/Depth Moderate Body Position Hooklying Comments pt positioned with wedge under her pelvis to provide pelvic decompression bladder visceral mobilizations Body Location suprapubic fascia Mobilization Type Myofascial Release Intensity/Depth Moderate Body Position Hooklying Comments pt positioned with wedge under her pelvis to provide pelvic decompression PT-OP-T Assessment and Plan Start: 11/05/23 08:11 Freq: Status: Active Protocol: Document 11/13/23 08:13 [facility] (Rec: 11/13/23 08:59 [facility] [id number]) Physical Therapy Assessment Assessment Summary Assessment worked on releasing the suprapubic fascia and adductors today on the right side. Quads were tight on the right and I added in a standing quad stretch. Good tolerance for MFR Physical Therapy Plan Frequency and Duration Frequency of Treatment 1x/Week Duration of treatment (weeks) 12 Plan of Care Start Date 11/05/23 Plan of Care End Date 01/28/24 Therapeutic Interventions Therapeutic Interventions Home Exercise Program,Manual Therapy,Neuromuscular Re- education,Patient/Caregiver Education,Self-Care/Home Management,Soft Tissue Mobilization,Therapeutic Exercises Modalities Biofeedback Next Visit Focus/Plan Next Note Type Treatment Note Next Visit Plan review all stretches next visit , talk to pt about MRI results and continue with manual work
--- NOTE | 2023-11-20 13:16 | PT.OTN ---
Current Diagnoses Pelvic muscle wasting (11/20/23) Other specified noninflammatory disorders of vagina (11/20/23) Unspecified urinary incontinence (11/20/23) Strain of adductor muscle, fascia and tendon of right thigh, initial encounter (11/20/23) Physical Therapy Treatment Note PT-OP-A Visit Information Start: 11/05/23 08:11 Freq: Status: Active Protocol: Document 11/20/23 08:11 [facility] (Rec: 11/20/23 09:04 [facility] [id number]) Out-Patient Physical Therapy Visit Information Visit Information Visit Type Treatment Note Visit Start Time 08:15 Visit Stop Time 09:00 Visit Number 3 PT-OP-B Current Condition Start: 11/05/23 08:11 Freq: Status: Active Protocol: Document 11/05/23 09:00 [facility] (Rec: 11/05/23 09:11 [facility] [id number]) Current Condition History of Current Condition Onset Date July 2023 Current Complaints urethral discomfort, pelvic pain, stress incontinence History of Current Condition pt notes she was trying to get back to the gym and was doing the hip adductor and abductor machine, she started feeling symptoms of UTI. She then tried to do her stretches and used the dilator and that helped a little but it really was hurting. This all started in July. She describes a buring sensation with voiding . Urine testing has been negative but she feesl like the spasm cycle is starting up again. She has a urology visit on November [address] Casiano She is feeling pelvic pressure and feels her prolapse is a lot worse. She did have a cystecele repair in 2011. She has to push inorder to fully void. She has occasional leakage with a cough or sneeze . Patricia notes she gets the most amount of discomfort around the urethra especially with intercourse Treatment Goals Patient/Caregiver Goals Patricia's goals are to reduce pain and muscle tightness and to decrease urinary stress incontinence PT-OP-C Subjective Start: 11/05/23 08:11 Freq: Status: Active Protocol: Document 11/20/23 13:12 [facility] (Rec: 11/20/23 13:14 [facility] [id number]) OP-PT Subjective Patient Comments Patient Comments Patricia notes she has not yet been approved for her MRI yet, she does bring in her ultrasound today to go over where to use it and for specifics Patient Reported Progress Same PT-OP-F Manual Assessment Start: 11/05/23 08:11 Freq: Status: Active Protocol: Document 11/05/23 09:00 [facility] (Rec: 11/05/23 10:23 [facility] [id number]) Manual Assessments Soft Tissue Assessment Soft Tissue Mobility Assessment right sided adductor guarding and tightness at the attachments to the pubic bone tightness of the suprapubic fascia and bladder left levator ani guarding from 3-6 on the pelvic clock PT-OP-I Pelvic Floor Start: 11/05/23 08:11 Freq: Status: Active Protocol: Document 11/05/23 09:00 [facility] (Rec: 11/05/23 10:20 [facility] [id number]) Pelvic Floor Assessment Urine Pelvic Floor Surgery Yes Urinary Symptoms Pain Other Urinary Symptoms urethral pain and burning, slow hesitant urinary stream unless she pushes Leakage Size Small Leakage Cause Cough,Sneeze Nocturia 1 Pelvic Clock Pelvic Clock 12-3 Atrophy Pelvic Clock 3-6 Atrophy,Guarding,Tenderness Pelvic Clock 6-9 Atrophy Pelvic Clock 9-12 Atrophy Pelvic Clock Other tenderness to palpation at the urethra and the urethra feels swollen along with the tissue of the anterior pelvic floor and suprapubic region Prolapse Urethrocele Grade 1 Rectocele Grade 1 Contraction Ability Voluntary Contraction Weak Voluntary Relaxation Weak Manual Muscle Testing Left 2 Manual Muscle Testing Right 2 Manual Muscle Testing Anterior 2 Manual Muscle Testing Posterior 2 Muscle Endurance (Seconds) 5 PT-OP-Q Treatments Start: 11/05/23 08:11 Freq: Status: Active Protocol: Document 11/20/23 13:12 [facility] (Rec: 11/20/23 13:14 [facility] [id number]) Manual Therapy Treatment Soft Tissue Mobilization right adductor release Mobilization Type Myofascial Release Intensity/Depth Moderate Body Position Hooklying Comments pt positioned with wedge under her pelvis to provide pelvic decompression bladder visceral mobilizations Body Location suprapubic fascia Mobilization Type Myofascial Release Intensity/Depth Moderate Body Position Hooklying Comments pt positioned with wedge under her pelvis to provide pelvic decompression PT-OP-R Modalities Start: 11/20/23 13:14 Freq: Status: Active Protocol: Document 11/20/23 13:14 [facility] (Rec: 11/20/23 13:15 [facility] [id number]) Ultrasound Therapy Treatment right adductors Patient Position Supine Coupling Medium Ultrasound Gel Applicator Size (cm2) 5 Frequency Setting (mHz) 1 Mode Setting Continuous Duty Cycle 100% Intensity Setting (w/cm2) 1.5 Comments 8 minutes, good tolerance PT-OP-T Assessment and Plan Start: 11/05/23 08:11 Freq: Status: Active Protocol: Document 11/20/23 08:11 [facility] (Rec: 11/20/23 09:04 [facility] [id number]) Physical Therapy Assessment Assessment Summary Assessment pt notes she has not yet been approved for the MRI yet and I will hold off on any internal pelvic floor work until that as she was swollen in the urethra at the time of initial visit. She is tolerating fascial release well and visceral mobilizations over the bladder Physical Therapy Plan Frequency and Duration Frequency of Treatment 1x/Week Duration of treatment (weeks) 12 Plan of Care Start Date 11/05/23 Plan of Care End Date 01/28/24 Therapeutic Interventions Therapeutic Interventions Home Exercise Program,Manual Therapy,Neuromuscular Re- education,Patient/Caregiver Education,Self-Care/Home Management,Soft Tissue Mobilization,Therapeutic Exercises Modalities Biofeedback
--- NOTE | 2023-11-27 13:17 | PT.OTN ---
Current Diagnoses Pelvic muscle wasting (11/27/23) Other specified noninflammatory disorders of vagina (11/27/23) Unspecified urinary incontinence (11/27/23) Strain of adductor muscle, fascia and tendon of right thigh, initial encounter (11/27/23) Physical Therapy Treatment Note PT-OP-A Visit Information Start: 11/05/23 08:11 Freq: Status: Active Protocol: Document 11/27/23 13:01 [facility] (Rec: 11/27/23 13:16 [facility] [id number]) Out-Patient Physical Therapy Visit Information Visit Information Visit Type Treatment Note Visit Start Time 08:15 Visit Stop Time 09:00 Visit Number 4 PT-OP-B Current Condition Start: 11/05/23 08:11 Freq: Status: Active Protocol: Document 11/05/23 09:00 [facility] (Rec: 11/05/23 09:11 [facility] [id number]) Current Condition History of Current Condition Onset Date July 2023 Current Complaints urethral discomfort, pelvic pain, stress incontinence History of Current Condition pt notes she was trying to get back to the gym and was doing the hip adductor and abductor machine, she started feeling symptoms of UTI. She then tried to do her stretches and used the dilator and that helped a little but it really was hurting. This all started in July. She describes a buring sensation with voiding . Urine testing has been negative but she feesl like the spasm cycle is starting up again. She has a urology visit on November [address] Casiano She is feeling pelvic pressure and feels her prolapse is a lot worse. She did have a cystecele repair in 2011. She has to push inorder to fully void. She has occasional leakage with a cough or sneeze . Patricia notes she gets the most amount of discomfort around the urethra especially with intercourse Treatment Goals Patient/Caregiver Goals Patricia's goals are to reduce pain and muscle tightness and to decrease urinary stress incontinence PT-OP-C Subjective Start: 11/05/23 08:11 Freq: Status: Active Protocol: Document 11/27/23 08:18 [facility] (Rec: 11/27/23 09:02 [facility] [id number]) OP-PT Subjective Patient Comments Patient Comments pt notes she tried to do the cobra stretch and ended up irritating her back and she saw the chiropractor to re align her PT-OP-F Manual Assessment Start: 11/05/23 08:11 Freq: Status: Active Protocol: Document 11/05/23 09:00 [facility] (Rec: 11/05/23 10:23 [facility] [id number]) Manual Assessments Soft Tissue Assessment Soft Tissue Mobility Assessment right sided adductor guarding and tightness at the attachments to the pubic bone tightness of the suprapubic fascia and bladder left levator ani guarding from 3-6 on the pelvic clock PT-OP-I Pelvic Floor Start: 11/05/23 08:11 Freq: Status: Active Protocol: Document 11/05/23 09:00 [facility] (Rec: 11/05/23 10:20 [facility] [id number]) Pelvic Floor Assessment Urine Pelvic Floor Surgery Yes Urinary Symptoms Pain Other Urinary Symptoms urethral pain and burning, slow hesitant urinary stream unless she pushes Leakage Size Small Leakage Cause Cough,Sneeze Nocturia 1 Pelvic Clock Pelvic Clock 12-3 Atrophy Pelvic Clock 3-6 Atrophy,Guarding,Tenderness Pelvic Clock 6-9 Atrophy Pelvic Clock 9-12 Atrophy Pelvic Clock Other tenderness to palpation at the urethra and the urethra feels swollen along with the tissue of the anterior pelvic floor and suprapubic region Prolapse Urethrocele Grade 1 Rectocele Grade 1 Contraction Ability Voluntary Contraction Weak Voluntary Relaxation Weak Manual Muscle Testing Left 2 Manual Muscle Testing Right 2 Manual Muscle Testing Anterior 2 Manual Muscle Testing Posterior 2 Muscle Endurance (Seconds) 5 PT-OP-Q Treatments Start: 11/05/23 08:11 Freq: Status: Active Protocol: Document 11/27/23 13:01 [facility] (Rec: 11/27/23 13:16 [facility] [id number]) Manual Therapy Treatment Soft Tissue Mobilization right iliopsoas release Body Location right iliipsoas Mobilization Type Myofascial Release Comments good tolerance right adductor release Mobilization Type Myofascial Release Intensity/Depth Moderate Body Position Hooklying Comments pt positioned with wedge under her pelvis to provide pelvic decompression PT-OP-R Modalities Start: 11/20/23 13:14 Freq: Status: Active Protocol: Document 11/20/23 13:14 [facility] (Rec: 11/20/23 13:15 [facility] [id number]) Ultrasound Therapy Treatment right adductors Patient Position Supine Coupling Medium Ultrasound Gel Applicator Size (cm2) 5 Frequency Setting (mHz) 1 Mode Setting Continuous Duty Cycle 100% Intensity Setting (w/cm2) 1.5 Comments 8 minutes, good tolerance PT-OP-T Assessment and Plan Start: 11/05/23 08:11 Freq: Status: Active Protocol: Document 11/27/23 13:01 [facility] (Rec: 11/27/23 13:16 [facility] [id number]) Physical Therapy Assessment Goals 3 Impairment pelvic floor weakness with MMT of 2/5 and decreased endurance of the levator ani Short Term Goal (STG) Patricia is educated on pelvic floor endurance and strengthening exercises pt has not been rain to return to exercise due to pain STG Duration 4 weeks Detention Goal (LTG) Patricia decomstrates improvement in strength of the levator ani demonstrating improved strength by 1 muscle grade and she is able to sustain a pelvic floor contraction x 10 seconds LTG Duration 12 weeks 2 Impairment spasm and tightness of the right adductor attachments to the pubic bone Short Term Goal (STG) Patricia is shown a home program for stretching the adductors goal met STG Duration 4 weeks [employer] Goal (LTG) stretching along with manual therapy work has helped to reduce tightness and spasm of the adductors that are contributing to pelvic pain some progress LTG Duration 12 weeks 1 Impairment urethral pain and pelvic floor spasms making her feel as if she has a UTI causing pain with urination and with intercourse Detention Goal (LTG) Patricia reports a overall reduction in urethral and pelvic pain and i sno longer experiencing pain with urination and with intercourse no change LTG Duration 12 weeks Assessment Summary Assessment Patricia did not tolerate the cobra stretch last visit as she felt too much instability in her spine and did seek childcare center administrator this week for her pelvis. We talked about keeping pelvis stable and trying to stretch out her upper chest and abdomen with laying over her foam roll instead. At this point she will be DC to a HEP as she is awaiting MRI for her urethra and will then undergo urethral surgery. She would like to resume PT after her surgery Physical Therapy Plan Discharge Physical Therapy Discharge Reasons Plateau in Progress
== END 2023-11-28 12:47 | disposition home or self-care (01) ==
LOC: PHYS 08:15
PROVIDERS: PCP Family Medicine; Referring Provider Student in an Organized Health Care Education/Training Program; Visit Provider Student in an Organized Health Care Education/Training Program
DX: N89.8 Other specified noninflammatory disorders of vagina (principal); R32 Unspecified urinary incontinence; N81.84 Pelvic muscle wasting; S76.211A Strain of adductor muscle, fascia and tendon of right thigh, initial encounter
CPT/HCPCS: 97035; 97140

== ENCOUNTER → 2024-01-25 11:31 | Outpatient (CLI) | payer OTHER, SELFPAY ==
[2022-03-27 15:26] VITALS: BMI 31.8
--- NOTE | 2024-01-25 11:33 | DI.CT.S_ITS ---
PROCEDURE: CT ABDOMEN PELVIS W CON INDICATIONS: LOWER ABD PAIN TECHNIQUE: After the administration of intravenous contrast, axial sections acquired from the lung bases to the pubic symphysis. Coronal and sagittal reformats were performed. For radiation dose reduction, the following was used: automated exposure control, adjustment of mA and/or kV according to patient size. COMPARISON: [facility], CT, CT ABDOMEN PELVIS W CON, 04/13/2022, 12:24. FINDINGS: Image quality: Diagnostic. Lower Chest: No significant findings. ABDOMEN: Liver: Scattered subcentimeter hypoattenuating lesions, too small to characterize by CT but probably small cysts. 1.3 centimeters segment 7 cyst without internal complexity. Gallbladder: No radiopaque gallstones or wall thickening. Biliary ducts: No biliary dilation. Pancreas: No ductal dilation. Spleen: Size is within normal limits. Adrenal Glands: No adrenal nodules. Kidneys and Ureters: No hydronephrosis. No solid mass. No complex renal cystic lesion which requires follow up. Stomach and Bowel: Normal colonic caliber, without significant wall thickening. No significant diverticular disease. Appendectomy. Peritoneum: No abnormal intraperitoneal fluid. No free air. Ventral Wall: No significant ventral hernia. Small umbilical hernia containing fat. Abdominal Nodes: No retroperitoneal or mesenteric adenopathy by size criteria. Vessels: Aorta and inferior vena cava are normal in size. PELVIS: Pelvic Organs: Hysterectomy. Right ovary not visualized. Left ovary is atrophic. No pelvic mass. Bladder: No bladder wall thickening, accounting for underdistention. Pelvic Nodes: No enlarged lymph nodes. Miscellaneous: No inguinal hernias are seen. Bones: No aggressive osseous abnormality. Degenerative disc disease of the lumbar spine. IMPRESSION: No findings to explain the patient's lower abdominal pain. No significant diverticular disease. No hydronephrosis or obstructing stones. Dictated by: Jonas Alexander M.D. on 01/26/2024 at 7:38 Approved by: Jonas Alexander M.D. on 01/26/2024 at 7:41
[2024-01-25 12:27] LABS: Estimated Glomerular Filt Rate > 60 mL/min (>60)
== END ==
PROVIDERS: Radiology Diagnostic Radiology; PCP Family Medicine; Referring Provider Family Medicine; Visit Provider Family Medicine
DX: K42.9 Umbilical hernia without obstruction or gangrene (principal); R10.30 Lower abdominal pain, unspecified; M51.36 Other intervertebral disc degeneration, lumbar region; Z90.710 Acquired absence of both cervix and uterus
CPT/HCPCS: 74177; 82565; Q9967

== ENCOUNTER 2024-09-16 10:45 | Outpatient (RCR) | payer OTHER, SELFPAY ==
[2022-03-27 15:26] VITALS: BMI 31.8
--- NOTE | 2024-04-07 14:00 | PT.OPPOC ---
Physical, Occupational & Speech Therapy At [facility] Current Diagnoses Pelvic muscle wasting (04/07/24) Other specified noninflammatory disorders of vagina (04/07/24) Pelvic and perineal pain (04/07/24) Visit Care Team Role Provider Type Jasper Sharma DO Primary Care Provider Non-Staff Specialty: Family Practice Address: [address] [place] [address], [id number] Email: Jarrett Arevalo MD Family Provider Non-Staff Specialty: Medical Address: [address] [place] [address], [phone] Email: Roman La PA-C Attending Provider Non-Staff Referring Provider Specialty: Medical Address: [address] [place] [address], [id number] Email: Plan Of Care PT-OP-B Current Condition Start: 04/07/24 13:03 Freq: Status: Active Protocol: Document 04/07/24 13:04 [facility] (Rec: 04/07/24 13:47 [facility] [id number]) Current Condition History of Current Condition Onset Date july 2023 Current Complaints urethral discomfort, pelvic pain, stress incontinence History of Current Condition Michelle reports she decided not to do the surgery and decided to use the estrace daily and she is in need of shoulder surgery so she decided to hold off. When she does too much lifting or bending then she starts to get pelvic floor muscle spasms. She does feel the estrace helps with the burning. She notes she has to push on her bladder when she is in a hurry. She is experiencing pain with intercourse. Treatment Goals Patient/Caregiver Goals pt goals include decreasing urethral and pelvic pain PT-OP-T Assessment and Plan Start: 04/07/24 13:03 Freq: Status: Active Protocol: Document 04/07/24 13:00 [facility] (Rec: 04/08/24 13:34 [facility] [id number]) Physical Therapy Assessment Goals 3 Impairment pelvic floor weakness with MMT of 2/5 and decreased endurance of the levator ani 2 Impairment spasm and tightness of the right adductor attachments to the pubic bone 1 Impairment urethral pain and pelvic floor spasms making her feel as if she has a UTI causing pain with urination and with intercourse Jail Goal (LTG) Patricia reports a overall reduction in urethral and pelvic pain and is no longer experiencing pain with urination or intercourse Assessment Summary Assessment Patricia returns to PT with chief complaints of urethral pain and pelvic pain symptoms. She did seek consult for surgery to repair tissue at the urethra but has decided to hold off on surgery as she is in need of a shoulder surgery . She was given estrogen cream which she does feel is helping some. She would like to focus on PT at this time. Patricia has a history of pelvic pain symptoms and was seen in PT 10 years ago. She reports she was doing well with her home program until July of 2023. Patricia notes she was at the gym and working on a inner thigh exercise machine which caused her adductors to start guarding and then she started experiencing urethral pain symptoms. Pain is increased with voiding and also with intercourse. She also notes leakage with cough or sneeze. With evaluation she is guarded in the suprapubic fascia in the region of the bladder and right adductor and iliopsoas musculature. Michelle also reports urinary leakage with strong cough or sneeze and she presents with weakness of the pelvic floor. She is a good candidate for PT working on releasing tone of the adductor, pelvic decompression and pelvic floor strength and endurance training. Physical Therapy Plan Frequency and Duration Frequency of Treatment 1x/Week Duration of treatment (weeks) 12 Plan of Care Start Date 04/07/24 Plan of Care End Date 06/30/24 Therapeutic Interventions Therapeutic Interventions Home Exercise Program,Manual Therapy,Neuromuscular Re- education,Patient/Caregiver Education,Self-Care/Home Management,Soft Tissue Mobilization,Therapeutic Exercises Next Visit Focus/Plan Next Note Type Treatment Note Next Visit Plan begin working on a stretching program for the adductors and hip flexors Plan of Care Dates Plan of Care Start Date 04/07/24 Plan of Care End Date 06/30/24 Electronically Signed by: Mela Akers, PT 04/08/24 9510 If you are in agreement with this Plan of Care, please return a signed and dated copy. I have reviewed this Plan of Care and certify that the skilled therapy services above are required to meet the patient?s needs. Physician Signature Date Printed Name and Credentials Clinical Instructor Signature Printed Name and Credentials
--- NOTE | 2024-04-07 16:00 | PT.OIE ---
Current Diagnoses Pelvic muscle wasting (04/07/24) Other specified noninflammatory disorders of vagina (04/07/24) Pelvic and perineal pain (04/07/24) Past Medical History (Last Reviewed 10/09/22 @ 05:43 by Jeana Vizcarra DO) Anemia (~2005) Anxiety (~1988) Carpal tunnel syndrome (~2007) Cervical somatic dysfunction Chicken pox (~1974) Chronic back pain (~1998) Cranial somatic dysfunction Degenerative disc disease (~1998) Depression (~1999) Endometriosis (~1990) GERD (gastroesophageal reflux disease) (~2007) Hearing loss (~2014) Hypertension (~2005) Mumps (~1975) Neck pain Osteoarthritis (~2007) Shortness of breath Situational anxiety Stressful life events affecting family and household Tension headache Thoracic region somatic dysfunction Thyroid nodule (~2013) Tinnitus (~2014) Vision disorder Past Surgical History (Last Reviewed 10/09/22 @ 05:43 by Jeana Vizcarra DO) Anesthesia History of cystocele (~2012) History of hysterectomy (~2007) History of left breast biopsy (~1988) Visit Care Team Role Provider Type Jasper Sharma DO Primary Care Provider Non-Staff Specialty: Family Practice Address: [address] [place] [address], [id number] Email: Jarrett Arevalo MD Family Provider Non-Staff Specialty: Medical Address: [address] [place] [address], [phone] Email: Roman La PA-C Attending Provider Non-Staff Referring Provider Specialty: Medical Address: [address] [place] [address], [id number] Email: Physical Therapy Initial Evaluation PT-OP-A Visit Information Start: 04/07/24 13:03 Freq: Status: Active Protocol: Document 04/07/24 13:00 [facility] (Rec: 04/08/24 13:34 [facility] [id number]) Out-Patient Physical Therapy Visit Information Visit Information Visit Type Initial Evaluation Visit Start Time 13:00 Visit Stop Time 13:45 Visit Number 1 Evaluation Information Evaluation Date 04/07/24 PT-OP-B Current Condition Start: 04/07/24 13:03 Freq: Status: Active Protocol: Document 04/07/24 13:04 [facility] (Rec: 04/07/24 13:47 [facility] [id number]) Current Condition History of Current Condition Onset Date july 2023 Current Complaints urethral discomfort, pelvic pain, stress incontinence History of Current Condition Michelle reports she decided not to do the surgery and decided to use the estrace daily and she is in need of shoulder surgery so she decided to hold off. When she does too much lifting or bending then she starts to get pelvic floor muscle spasms. She does feel the estrace helps with the burning. She notes she has to push on her bladder when she is in a hurry. She is experiencing pain with intercourse. Treatment Goals Patient/Caregiver Goals pt goals include decreasing urethral and pelvic pain PT-OP-F Manual Assessment Start: 04/07/24 13:03 Freq: Status: Active Protocol: Document 04/07/24 13:00 [facility] (Rec: 04/08/24 13:34 [facility] [id number]) Manual Assessments Soft Tissue Assessment Soft Tissue Mobility Assessment right sided adductor guarding and tightness at the attachments to the pubic bone, tightness of the suprapubic fascia and bladder, left sided levator ani guading from 3-6 on the pelvic clock right sided iliopsoas tightness PT-OP-I Pelvic Floor Start: 04/07/24 13:03 Freq: Status: Active Protocol: Document 04/07/24 13:00 [facility] (Rec: 04/08/24 13:34 [facility] [id number]) Pelvic Floor Assessment Urine Pelvic Floor Surgery Yes Urinary Symptoms Hesitancy,Pain Other Urinary Symptoms urethral pain and burning, slow hesitant urinary stress unless she pushed Leakage Size Small Leakage Cause Cough,Sneeze Pelvic Clock Pelvic Clock 12-3 Atrophy Pelvic Clock 3-6 Atrophy,Guarding,Tenderness Pelvic Clock Other tenderness to palpation at the urethra Prolapse Urethrocele Grade 1 Rectocele Grade 1 Contraction Ability Voluntary Contraction Weak Voluntary Relaxation Weak Manual Muscle Testing Left 2 Manual Muscle Testing Right 2 Manual Muscle Testing Anterior 2 Manual Muscle Testing Posterior 2 Muscle Endurance (Seconds) 5 PT-OP-Q Treatments Start: 04/07/24 13:03 Freq: Status: Active Protocol: Document 04/08/24 13:00 [facility] (Rec: 04/08/24 13:35 [facility] [id number]) Manual Therapy Treatment Soft Tissue Mobilization suprapubic fascia Mobilization Type Myofascial Release Intensity/Depth Moderate Body Position Hooklying Comments worked on suprapubic fascial release and mobilization of the bladder PT-OP-T Assessment and Plan Start: 04/07/24 13:03 Freq: Status: Active Protocol: Document 04/07/24 13:00 [facility] (Rec: 04/08/24 13:34 [facility] [id number]) Physical Therapy Assessment Goals 3 Impairment pelvic floor weakness with MMT of 2/5 and decreased endurance of the levator ani 2 Impairment spasm and tightness of the right adductor attachments to the pubic bone 1 Impairment urethral pain and pelvic floor spasms making her feel as if she has a UTI causing pain with urination and with intercourse 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 She did seek consult for surgery to repair tissue at the urethra but has decided to hold off on surgery as she is in need of a shoulder surgery . She was given estrogen cream which she does feel is helping some. She would like to focus on PT at this time. Patricia has a history of pelvic pain symptoms and was seen in PT 10 years ago. She reprots she was doing well with her home program until July of 2023. Patricia notes she was at the gym and working on a inner thigh exercise maching which caused her adductors to start guarding and then she started experiencing urethral pain symptoms. Pain is increased with voiding and also with intercourse. She also notes leakage with cough or sneeze. With evaluation she is guarded in the suprapubic fascia in the region of the bladder and right adductor and iliopsoas musculature. Michelle also reports urinary leakage with strong cough or sneeze and she presents with weakness of the pelvic floor. She is a good candidate for PT working on releasing tone of the adductor, pelvic decompression and pelvic floor strength and endurance training. Physical Therapy Plan Frequency and Duration Frequency of Treatment 1x/Week Duration of treatment (weeks) 12 Plan of Care Start Date 04/07/24 Plan of Care End Date 06/30/24 Therapeutic Interventions Therapeutic Interventions Home Exercise Program,Manual Therapy,Neuromuscular Re- education,Patient/Caregiver Education,Self-Care/Home Management,Soft Tissue Mobilization,Therapeutic Exercises Next Visit Focus/Plan Next Note Type Treatment Note Next Visit Plan begin working on a stretching program for the adductors and hip flexors
--- NOTE | 2024-04-22 13:05 | PT.OTN ---
Current Diagnoses Pelvic muscle wasting (04/22/24) Other specified noninflammatory disorders of vagina (04/22/24) Pelvic and perineal pain (04/22/24) Physical Therapy Treatment Note PT-OP-A Visit Information Start: 04/07/24 13:03 Freq: Status: Active Protocol: Document 04/22/24 10:13 [facility] (Rec: 04/22/24 10:37 [facility] [id number]) Out-Patient Physical Therapy Visit Information Visit Information Visit Type Treatment Note Visit Start Time 09:50 Visit Stop Time 10:30 Visit Number 3 PT-OP-B Current Condition Start: 04/07/24 13:03 Freq: Status: Active Protocol: Document 04/07/24 13:04 [facility] (Rec: 04/07/24 13:47 [facility] [id number]) Current Condition History of Current Condition Onset Date july 2023 Current Complaints urethral discomfort, pelvic pain, stress incontinence History of Current Condition Michelle reports she decided not to do the surgery and decided to use the estrace daily and she is in need of shoulder surgery so she decided to hold off. When she does too much lifting or bending then she starts to get pelvic floor muscle spasms. She does feel the estrace helps with the burning. She notes she has to push on her bladder when she is in a hurry. She is experiencing pain with intercourse. 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 She is trying to do the [place] wiper stretch but feels some back discomfort with it PT-OP-F Manual Assessment Start: 04/07/24 13:03 Freq: Status: Active Protocol: Document 04/07/24 13:00 [facility] (Rec: 04/08/24 13:34 [facility] [id number]) Manual Assessments Soft Tissue Assessment Soft Tissue Mobility Assessment right sided adductor guarding and tightness at the attachments to the pubic bone, tightness of the suprapubic fascia and bladder, left sided levator ani guading from 3-6 on the pelvic clock right sided iliopsoas tightness PT-OP-I Pelvic Floor Start: 04/07/24 13:03 Freq: Status: Active Protocol: Document 04/07/24 13:00 [facility] (Rec: 04/08/24 13:34 [facility] [id number]) Pelvic Floor Assessment Urine Pelvic Floor Surgery Yes Urinary Symptoms Hesitancy,Pain Other Urinary Symptoms urethral pain and burning, slow hesitant urinary stress unless she pushed Leakage Size Small Leakage Cause Cough,Sneeze Pelvic Clock Pelvic Clock 12-3 Atrophy Pelvic Clock 3-6 Atrophy,Guarding,Tenderness Pelvic Clock Other tenderness to palpation at the urethra Prolapse Urethrocele Grade 1 Rectocele Grade 1 Contraction Ability Voluntary Contraction Weak Voluntary Relaxation Weak Manual Muscle Testing Left 2 Manual Muscle Testing Right 2 Manual Muscle Testing Anterior 2 Manual Muscle Testing Posterior 2 Muscle Endurance (Seconds) 5 PT-OP-Q Treatments Start: 04/07/24 13:03 Freq: Status: Active Protocol: Document 04/22/24 09:59 [facility] (Rec: 04/22/24 10:12 [facility] [id number]) Therapeutic Exercises Supine Exercises supine marches Reps/Minutes x 5 each side filemon test stretch for the hip flexor Reps/Minutes hold 1-2 min supine butterfly stretch Reps/Minutes 10-20 reps PT-OP-T Assessment and Plan Start: 04/07/24 13:03 Freq: Status: Active Protocol: Document 04/22/24 12:59 [facility] (Rec: 04/22/24 13:05 [facility] [id number]) Physical Therapy Assessment Assessment Summary Assessment I change the windshield wiper to a supine butterfly stretch and i added in TA stabilization in supine with marches. Patricia was also able to tolerate iliopsoas stretch in a filemon test position today. Right sided adductors still tight Physical Therapy Plan Frequency and Duration Frequency of Treatment 1x/Week Duration of treatment (weeks) 12 Plan of Care Start Date 04/07/24 Plan of Care End Date 06/30/24 Therapeutic Interventions Therapeutic Interventions Home Exercise Program,Manual Therapy,Neuromuscular Re- education,Patient/Caregiver Education,Self-Care/Home Management,Soft Tissue Mobilization,Therapeutic Exercises Modalities Biofeedback Next Visit Focus/Plan Next Note Type Treatment Note Next Visit Plan contine with TA stabilization, fascial release and begin cat cow on all 4's next visit
--- NOTE | 2024-04-30 14:30 | PT.OTN ---
Current Diagnoses Pelvic muscle wasting (04/28/24) Other specified noninflammatory disorders of vagina (04/28/24) Pelvic and perineal pain (04/28/24) Physical Therapy Treatment Note PT-OP-A Visit Information Start: 04/07/24 13:03 Freq: Status: Active Protocol: Document 04/28/24 13:53 [facility] (Rec: 04/28/24 14:04 [facility] [id number]) Out-Patient Physical Therapy Visit Information Visit Information Visit Type Treatment Note Visit Start Time 11:30 Visit Stop Time 12:15 Visit Number 4 PT-OP-B Current Condition Start: 04/07/24 13:03 Freq: Status: Active Protocol: Document 04/07/24 13:04 [facility] (Rec: 04/07/24 13:47 [facility] [id number]) Current Condition History of Current Condition Onset Date july 2023 Current Complaints urethral discomfort, pelvic pain, stress incontinence History of Current Condition Michelle reports she decided not to do the surgery and decided to use the estrace daily and she is in need of shoulder surgery so she decided to hold off. When she does too much lifting or bending then she starts to get pelvic floor muscle spasms. She does feel the estrace helps with the burning. She notes she has to push on her bladder when she is in a hurry. She is experiencing pain with intercourse. Treatment Goals Patient/Caregiver Goals pt goals include decreasing urethral and pelvic pain PT-OP-C Subjective Start: 04/15/24 10:00 Freq: Status: Active Protocol: Document 04/28/24 13:53 [facility] (Rec: 04/28/24 14:04 [facility] [id number]) OP-PT Subjective Patient Comments Patient Comments Michelle reports she has been working on her addcutors stretches. She feels her pelvic pain symptoms are improving PT-OP-F Manual Assessment Start: 04/07/24 13:03 Freq: Status: Active Protocol: Document 04/07/24 13:00 [facility] (Rec: 04/08/24 13:34 [facility] [id number]) Manual Assessments Soft Tissue Assessment Soft Tissue Mobility Assessment right sided adductor guarding and tightness at the attachments to the pubic bone, tightness of the suprapubic fascia and bladder, left sided levator ani guading from 3-6 on the pelvic clock right sided iliopsoas tightness PT-OP-I Pelvic Floor Start: 04/07/24 13:03 Freq: Status: Active Protocol: Document 04/07/24 13:00 [facility] (Rec: 04/08/24 13:34 [facility] [id number]) Pelvic Floor Assessment Urine Pelvic Floor Surgery Yes Urinary Symptoms Hesitancy,Pain Other Urinary Symptoms urethral pain and burning, slow hesitant urinary stress unless she pushed Leakage Size Small Leakage Cause Cough,Sneeze Pelvic Clock Pelvic Clock 12-3 Atrophy Pelvic Clock 3-6 Atrophy,Guarding,Tenderness Pelvic Clock Other tenderness to palpation at the urethra Prolapse Urethrocele Grade 1 Rectocele Grade 1 Contraction Ability Voluntary Contraction Weak Voluntary Relaxation Weak Manual Muscle Testing Left 2 Manual Muscle Testing Right 2 Manual Muscle Testing Anterior 2 Manual Muscle Testing Posterior 2 Muscle Endurance (Seconds) 5 PT-OP-Q Treatments Start: 04/07/24 13:03 Freq: Status: Active Protocol: Document 04/28/24 11:30 [facility] (Rec: 04/30/24 14:30 [facility] [id number]) Manual Therapy Treatment Soft Tissue Mobilization right adductor release Mobilization Type Myofascial Release Intensity/Depth Moderate Body Position Hooklying suprapubic fascia Mobilization Type Myofascial Release Intensity/Depth Moderate Body Position Hooklying Comments worked on suprapubic fascial release and mobilization of the bladder PT-OP-T Assessment and Plan Start: 04/07/24 13:03 Freq: Status: Active Protocol: Document 04/28/24 11:30 [facility] (Rec: 04/30/24 14:30 [facility] [id number]) Physical Therapy Assessment Assessment Summary Assessment Patricia is reporting decreased pelvic pain symptoms with her stretches and with manual therapy techniques Physical Therapy Plan Frequency and Duration Frequency of Treatment 1x/Week Duration of treatment (weeks) 12 Plan of Care Start Date 04/07/24 Plan of Care End Date 06/30/24 Therapeutic Interventions Therapeutic Interventions Home Exercise Program,Manual Therapy,Neuromuscular Re- education,Patient/Caregiver Education,Self-Care/Home Management,Soft Tissue Mobilization,Therapeutic Exercises Modalities Biofeedback Next Visit Focus/Plan Next Note Type Treatment Note Next Visit Plan continue with trying cat cow and TA stabilization exercises
--- NOTE | 2024-05-14 13:52 | PT.OTN ---
Current Diagnoses Pelvic muscle wasting (05/14/24) Other specified noninflammatory disorders of vagina (05/14/24) Pelvic and perineal pain (05/14/24) Physical Therapy Treatment Note PT-OP-A Visit Information Start: 04/07/24 13:03 Freq: Status: Active Protocol: Document 05/14/24 13:00 [facility] (Rec: 05/14/24 13:09 [facility] [id number]) Out-Patient Physical Therapy Visit Information Visit Information Visit Type Treatment Note Visit Start Time 13:00 Visit Stop Time 13:45 Visit Number 5 PT-OP-B Current Condition Start: 04/07/24 13:03 Freq: Status: Active Protocol: Document 04/07/24 13:04 [facility] (Rec: 04/07/24 13:47 [facility] [id number]) Current Condition History of Current Condition Onset Date july 2023 Current Complaints urethral discomfort, pelvic pain, stress incontinence History of Current Condition Michelle reports she decided not to do the surgery and decided to use the estrace daily and she is in need of shoulder surgery so she decided to hold off. When she does too much lifting or bending then she starts to get pelvic floor muscle spasms. She does feel the estrace helps with the burning. She notes she has to push on her bladder when she is in a hurry. She is experiencing pain with intercourse. Treatment Goals Patient/Caregiver Goals pt goals include decreasing urethral and pelvic pain PT-OP-C Subjective Start: 04/15/24 10:00 Freq: Status: Active Protocol: Document 05/14/24 13:00 [facility] (Rec: 05/14/24 13:09 [facility] [id number]) OP-PT Subjective Patient Comments Patient Comments Michelle reports she is doing better overall and not feeling the pelvic pain. SHe still feels tight in the adducotrs PT-OP-F Manual Assessment Start: 04/07/24 13:03 Freq: Status: Active Protocol: Document 04/07/24 13:00 [facility] (Rec: 04/08/24 13:34 [facility] [id number]) Manual Assessments Soft Tissue Assessment Soft Tissue Mobility Assessment right sided adductor guarding and tightness at the attachments to the pubic bone, tightness of the suprapubic fascia and bladder, left sided levator ani guading from 3-6 on the pelvic clock right sided iliopsoas tightness PT-OP-I Pelvic Floor Start: 04/07/24 13:03 Freq: Status: Active Protocol: Document 04/07/24 13:00 [facility] (Rec: 04/08/24 13:34 [facility] [id number]) Pelvic Floor Assessment Urine Pelvic Floor Surgery Yes Urinary Symptoms Hesitancy,Pain Other Urinary Symptoms urethral pain and burning, slow hesitant urinary stress unless she pushed Leakage Size Small Leakage Cause Cough,Sneeze Pelvic Clock Pelvic Clock 12-3 Atrophy Pelvic Clock 3-6 Atrophy,Guarding,Tenderness Pelvic Clock Other tenderness to palpation at the urethra Prolapse Urethrocele Grade 1 Rectocele Grade 1 Contraction Ability Voluntary Contraction Weak Voluntary Relaxation Weak Manual Muscle Testing Left 2 Manual Muscle Testing Right 2 Manual Muscle Testing Anterior 2 Manual Muscle Testing Posterior 2 Muscle Endurance (Seconds) 5 PT-OP-Q Treatments Start: 04/07/24 13:03 Freq: Status: Active Protocol: Document 05/14/24 13:48 [facility] (Rec: 05/14/24 13:52 [facility] [id number]) Therapeutic Exercises Supine Exercises filemon test stretch for the hip flexor Reps/Minutes hold 1-2 min Sidelying Exercises sidelyinghip abduction Reps/Minutes 2 x 10 reps Standing Exercises standing hip abduction Reps/Minutes work up to 3 sets of 10 reps Manual Therapy Treatment Soft Tissue Mobilization right adductor release Mobilization Type Myofascial Release Intensity/Depth Moderate Body Position Hooklying PT-OP-T Assessment and Plan Start: 04/07/24 13:03 Freq: Status: Active Protocol: Document 05/14/24 13:48 [facility] (Rec: 05/14/24 13:52 [facility] [id number]) Physical Therapy Assessment Assessment Summary Assessment Michelle is doing better overall and feeling decreased pelvic pressure, she is still feeling guarded and tight in the adductors and does at times feel anterior hip tightness on the right side Physical Therapy Plan Frequency and Duration Frequency of Treatment 1x/Week Duration of treatment (weeks) 12 Plan of Care Start Date 04/07/24 Plan of Care End Date 06/30/24 Therapeutic Interventions Therapeutic Interventions Home Exercise Program,Manual Therapy,Neuromuscular Re- education,Patient/Caregiver Education,Self-Care/Home Management,Soft Tissue Mobilization,Therapeutic Exercises Modalities Biofeedback Next Visit Focus/Plan Next Note Type Treatment Note Next Visit Plan review new exercises given today for the hip and continue with fascial release
--- NOTE | 2024-05-21 17:04 | PT.OTN ---
Current Diagnoses Pelvic muscle wasting (05/21/24) Other specified noninflammatory disorders of vagina (05/21/24) Pelvic and perineal pain (05/21/24) Physical Therapy Treatment Note PT-OP-A Visit Information Start: 04/07/24 13:03 Freq: Status: Active Protocol: Document 05/21/24 13:04 [facility] (Rec: 05/21/24 13:48 [facility] [id number]) Out-Patient Physical Therapy Visit Information Visit Information Visit Type Treatment Note Visit Start Time 13:04 Visit Stop Time 13:45 Visit Number 6 Evaluation Information Evaluation Date 04/07/24 PT-OP-B Current Condition Start: 04/07/24 13:03 Freq: Status: Active Protocol: Document 04/07/24 13:04 [facility] (Rec: 04/07/24 13:47 [facility] [id number]) Current Condition History of Current Condition Onset Date july 2023 Current Complaints urethral discomfort, pelvic pain, stress incontinence History of Current Condition Michelle reports she decided not to do the surgery and decided to use the estrace daily and she is in need of shoulder surgery so she decided to hold off. When she does too much lifting or bending then she starts to get pelvic floor muscle spasms. She does feel the estrace helps with the burning. She notes she has to push on her bladder when she is in a hurry. She is experiencing pain with intercourse. Treatment Goals Patient/Caregiver Goals pt goals include decreasing urethral and pelvic pain PT-OP-C Subjective Start: 04/15/24 10:00 Freq: Status: Active Protocol: Document 05/21/24 13:04 [facility] (Rec: 05/21/24 13:48 [facility] [id number]) OP-PT Subjective Patient Comments Patient Comments pt notes her low back has been bothering her with standing for work PT-OP-F Manual Assessment Start: 04/07/24 13:03 Freq: Status: Active Protocol: Document 04/07/24 13:00 [facility] (Rec: 04/08/24 13:34 [facility] [id number]) Manual Assessments Soft Tissue Assessment Soft Tissue Mobility Assessment right sided adductor guarding and tightness at the attachments to the pubic bone, tightness of the suprapubic fascia and bladder, left sided levator ani guading from 3-6 on the pelvic clock right sided iliopsoas tightness PT-OP-I Pelvic Floor Start: 04/07/24 13:03 Freq: Status: Active Protocol: Document 04/07/24 13:00 [facility] (Rec: 04/08/24 13:34 [facility] [id number]) Pelvic Floor Assessment Urine Pelvic Floor Surgery Yes Urinary Symptoms Hesitancy,Pain Other Urinary Symptoms urethral pain and burning, slow hesitant urinary stress unless she pushed Leakage Size Small Leakage Cause Cough,Sneeze Pelvic Clock Pelvic Clock 12-3 Atrophy Pelvic Clock 3-6 Atrophy,Guarding,Tenderness Pelvic Clock Other tenderness to palpation at the urethra Prolapse Urethrocele Grade 1 Rectocele Grade 1 Contraction Ability Voluntary Contraction Weak Voluntary Relaxation Weak Manual Muscle Testing Left 2 Manual Muscle Testing Right 2 Manual Muscle Testing Anterior 2 Manual Muscle Testing Posterior 2 Muscle Endurance (Seconds) 5 PT-OP-Q Treatments Start: 04/07/24 13:03 Freq: Status: Active Protocol: Document 05/21/24 13:00 [facility] (Rec: 05/21/24 17:04 [facility] [id number]) Therapeutic Exercises Sitting Exercises seated iliopsoas stretch off side of chair Reps/Minutes hold 30 sec and cues to brace with her core PT-OP-T Assessment and Plan Start: 04/07/24 13:03 Freq: Status: Active Protocol: Document 05/21/24 13:00 [facility] (Rec: 05/21/24 17:04 [facility] [id number]) Physical Therapy Assessment Assessment Summary Assessment Michelle is doing better overall and feeling decreased pelvic pressure, She is feeling low back pain this week and could feel her bladder doing cat cow and go pose. she is still feeling guarded and tight in the adductors and does at times feel anterior hip tightness on the right side Physical Therapy Plan Frequency and Duration Frequency of Treatment 1x/Week Duration of treatment (weeks) 12 Plan of Care Start Date 04/07/24 Plan of Care End Date 06/30/24 Therapeutic Interventions Therapeutic Interventions Home Exercise Program,Manual Therapy,Neuromuscular Re- education,Patient/Caregiver Education,Self-Care/Home Management,Soft Tissue Mobilization,Therapeutic Exercises Modalities Biofeedback Next Visit Focus/Plan Next Note Type Treatment Note Next Visit Plan review new exercises given today for the hip and continue with fascial release
--- NOTE | 2024-07-09 17:33 | PT.OTN ---
Current Diagnoses Pelvic muscle wasting (07/09/24) Other specified noninflammatory disorders of vagina (07/09/24) Pelvic and perineal pain (07/09/24) Physical Therapy Treatment Note PT-OP-A Visit Information Start: 04/07/24 13:03 Freq: Status: Active Protocol: Document 07/09/24 13:00 [facility] (Rec: 07/14/24 17:18 [facility] [id number]) Out-Patient Physical Therapy Visit Information Visit Information Visit Type Treatment Note Visit Start Time 13:00 Visit Stop Time 13:45 Visit Number 7 PT-OP-B Current Condition Start: 04/07/24 13:03 Freq: Status: Active Protocol: Document 04/07/24 13:04 [facility] (Rec: 04/07/24 13:47 [facility] [id number]) Current Condition History of Current Condition Onset Date july 2023 Current Complaints urethral discomfort, pelvic pain, stress incontinence History of Current Condition Michelle reports she decided not to do the surgery and decided to use the estrace daily and she is in need of shoulder surgery so she decided to hold off. When she does too much lifting or bending then she starts to get pelvic floor muscle spasms. She does feel the estrace helps with the burning. She notes she has to push on her bladder when she is in a hurry. She is experiencing pain with intercourse. Treatment Goals Patient/Caregiver Goals pt goals include decreasing urethral and pelvic pain PT-OP-C Subjective Start: 04/15/24 10:00 Freq: Status: Active Protocol: Document 07/09/24 13:02 [facility] (Rec: 07/09/24 15:15 [facility] [id number]) OP-PT Subjective Patient Comments Patient Comments pt notes she has been having burning again in her pelvic floor PT-OP-F Manual Assessment Start: 04/07/24 13:03 Freq: Status: Active Protocol: Document 04/07/24 13:00 [facility] (Rec: 04/08/24 13:34 [facility] [id number]) Manual Assessments Soft Tissue Assessment Soft Tissue Mobility Assessment right sided adductor guarding and tightness at the attachments to the pubic bone, tightness of the suprapubic fascia and bladder, left sided levator ani guading from 3-6 on the pelvic clock right sided iliopsoas tightness PT-OP-I Pelvic Floor Start: 04/07/24 13:03 Freq: Status: Active Protocol: Document 04/07/24 13:00 [facility] (Rec: 04/08/24 13:34 [facility] [id number]) Pelvic Floor Assessment Urine Pelvic Floor Surgery Yes Urinary Symptoms Hesitancy,Pain Other Urinary Symptoms urethral pain and burning, slow hesitant urinary stress unless she pushed Leakage Size Small Leakage Cause Cough,Sneeze Pelvic Clock Pelvic Clock 12-3 Atrophy Pelvic Clock 3-6 Atrophy,Guarding,Tenderness Pelvic Clock Other tenderness to palpation at the urethra Prolapse Urethrocele Grade 1 Rectocele Grade 1 Contraction Ability Voluntary Contraction Weak Voluntary Relaxation Weak Manual Muscle Testing Left 2 Manual Muscle Testing Right 2 Manual Muscle Testing Anterior 2 Manual Muscle Testing Posterior 2 Muscle Endurance (Seconds) 5 PT-OP-Q Treatments Start: 04/07/24 13:03 Freq: Status: Active Protocol: Document 07/09/24 13:02 [facility] (Rec: 07/09/24 15:15 [facility] [id number]) Therapeutic Exercises Sitting Exercises seated iliopsoas stretch off side of chair Reps/Minutes hold 30 sec and cues to brace with her core Standing Exercises standing quad stretch Reps/Minutes hold 30 sec x 2 PT-OP-T Assessment and Plan Start: 04/07/24 13:03 Freq: Status: Active Protocol: Document 07/09/24 13:00 [facility] (Rec: 07/14/24 17:18 [facility] [id number]) Physical Therapy Assessment Goals 3 Impairment pelvic floor weakness with MMT of 2/5 and decreased endurance of the levator ani Custodial Goal (LTG) Patricia presents with improved strength of the levator ani for improved bladder and urethral support good progress 3/5 MMT of the levator ani LTG Duration 8 weeks 2 Impairment spasm and tightness of the right adductor attachments to the pubic bone Custodial Goal (LTG) Pt presents with overall reduction of adductor spasm and tightness Patricia is making good progress with her home program of stretching, we are working on lengthening out the adductors as well as iliopsoas LTG Duration 8 1 Impairment urethral pain and pelvic floor spasms making her feel as if she has a UTI causing pain with urination and with intercourse Director Marketing Goal (LTG) Patricia reprots a overall reduction in urethral and pelvic pain and is no longer experiencing pain with urination or intercourse good progress and decreased urethral pain Assessment Summary Assessment Michelle notes she had to stop working due to increasing low back pain, we worked today on iliopsoas release and stretches. Her complaints of pelvic pain are overall reduced and she isn't feeling the pain with urinary or intercourse. She has 2 visits left in PT for pelvic floor and then she will continue with the PT she is doing for her back. Physical Therapy Plan Frequency and Duration Frequency of Treatment 1x/Week Duration of treatment (weeks) 8 Plan of Care Start Date 07/14/24 Plan of Care End Date 09/08/24 Therapeutic Interventions Therapeutic Interventions Home Exercise Program,Manual Therapy,Neuromuscular Re- education,Patient/Caregiver Education,Self-Care/Home Management,Soft Tissue Mobilization,Therapeutic Exercises Modalities Biofeedback Next Visit Focus/Plan Next Note Type Treatment Note Next Visit Plan review new exercises given today for the hip and continue with fascial release
--- NOTE | 2024-07-09 17:34 | PT.OPPOC ---
Physical, Occupational & Speech Therapy At [facility] Current Diagnoses Pelvic muscle wasting (07/09/24) Other specified noninflammatory disorders of vagina (07/09/24) Pelvic and perineal pain (07/09/24) Visit Care Team Role Provider Type Jasper Sharma DO Primary Care Provider Non-Staff Specialty: Family Practice Address: [address] [place] [address], [id number] Email: Jarrett Arevalo MD Family Provider Non-Staff Specialty: Medical Address: [address] [place] [address], [phone] Email: Roman La PA-C Attending Provider Non-Staff Referring Provider Specialty: Medical Address: [address] [place] [address], [id number] Email: Plan Of Care PT-OP-B Current Condition Start: 04/07/24 13:03 Freq: Status: Active Protocol: Document 04/07/24 13:04 [facility] (Rec: 04/07/24 13:47 [facility] [id number]) Current Condition History of Current Condition Onset Date july 2023 Current Complaints urethral discomfort, pelvic pain, stress incontinence History of Current Condition Michelle reports she decided not to do the surgery and decided to use the estrace daily and she is in need of shoulder surgery so she decided to hold off. When she does too much lifting or bending then she starts to get pelvic floor muscle spasms. She does feel the estrace helps with the burning. She notes she has to push on her bladder when she is in a hurry. She is experiencing pain with intercourse. Treatment Goals Patient/Caregiver Goals pt goals include decreasing urethral and pelvic pain PT-OP-T Assessment and Plan Start: 04/07/24 13:03 Freq: Status: Active Protocol: Document 07/09/24 13:00 [facility] (Rec: 07/14/24 17:18 [facility] [id number]) Physical Therapy Assessment Goals 3 Impairment pelvic floor weakness with MMT of 2/5 and decreased endurance of the levator ani Care Home Goal (LTG) Patricia presents with improved strength of the levator ani for improved bladder and urethral support good progress 3/5 MMT of the levator ani LTG Duration 8 weeks 2 Impairment spasm and tightness of the right adductor attachments to the pubic bone Patient Accounting Representative Goal (LTG) Pt presents with overall reduction of adductor spasm and tightness Patricia is making good progress with her home program of stretching, we are working on lengthening out the adductors as well as iliopsoas LTG Duration 8 1 Impairment urethral pain and pelvic floor spasms making her feel as if she has a UTI causing pain with urination and with intercourse Patient Accounting Representative Goal (LTG) Patricia reprots a overall reduction in urethral and pelvic pain and is no longer experiencing pain with urination or intercourse good progress and decreased urethral pain Assessment Summary Assessment Michelle notes she had to stop working due to increasing low back pain, we worked today on iliopsoas release and stretches. Her complaints of pelvic pain are overall reduced and she isn't feeling the pain with urinary or intercourse. She has 2 visits left in PT for pelvic floor and then she will continue with the PT she is doing for her back. Physical Therapy Plan Frequency and Duration Frequency of Treatment 1x/Week Duration of treatment (weeks) 8 Plan of Care Start Date 07/14/24 Plan of Care End Date 09/08/24 Therapeutic Interventions Therapeutic Interventions Home Exercise Program,Manual Therapy,Neuromuscular Re- education,Patient/Caregiver Education,Self-Care/Home Management,Soft Tissue Mobilization,Therapeutic Exercises Modalities Biofeedback Next Visit Focus/Plan Next Note Type Treatment Note Next Visit Plan review new exercises given today for the hip and continue with fascial release Plan of Care Dates Plan of Care Start Date 07/14/24 Plan of Care End Date 09/08/24 Electronically Signed by: Mela Akers, PT 07/14/24 2217 If you are in agreement with this Plan of Care, please return a signed and dated copy. I have reviewed this Plan of Care and certify that the skilled therapy services above are required to meet the patient?s needs. Physician Signature Date Printed Name and Credentials Clinical Instructor Signature Printed Name and Credentials
--- NOTE | 2024-07-16 17:40 | PT.OTN ---
Current Diagnoses Pelvic muscle wasting (07/16/24) Other specified noninflammatory disorders of vagina (07/16/24) Pelvic and perineal pain (07/16/24) Physical Therapy Treatment Note PT-OP-A Visit Information Start: 04/07/24 13:03 Freq: Status: Active Protocol: Document 07/16/24 09:49 [facility] (Rec: 07/16/24 10:47 [facility] [id number]) Out-Patient Physical Therapy Visit Information Visit Information Visit Start Time 09:59 Visit Stop Time 10:30 Visit Number 8 Evaluation Information Evaluation Date 04/07/24 PT-OP-B Current Condition Start: 04/07/24 13:03 Freq: Status: Active Protocol: Document 04/07/24 13:04 [facility] (Rec: 04/07/24 13:47 [facility] [id number]) Current Condition History of Current Condition Onset Date july 2023 Current Complaints urethral discomfort, pelvic pain, stress incontinence History of Current Condition Michelle reports she decided not to do the surgery and decided to use the estrace daily and she is in need of shoulder surgery so she decided to hold off. When she does too much lifting or bending then she starts to get pelvic floor muscle spasms. She does feel the estrace helps with the burning. She notes she has to push on her bladder when she is in a hurry. She is experiencing pain with intercourse. Treatment Goals Patient/Caregiver Goals pt goals include decreasing urethral and pelvic pain PT-OP-C Subjective Start: 04/15/24 10:00 Freq: Status: Active Protocol: Document 07/16/24 09:49 [facility] (Rec: 07/16/24 10:47 [facility] [id number]) OP-PT Subjective Patient Comments Patient Comments not a whole not of buring this week, she has been doing her back exercises PT-OP-F Manual Assessment Start: 04/07/24 13:03 Freq: Status: Active Protocol: Document 04/07/24 13:00 [facility] (Rec: 04/08/24 13:34 [facility] [id number]) Manual Assessments Soft Tissue Assessment Soft Tissue Mobility Assessment right sided adductor guarding and tightness at the attachments to the pubic bone, tightness of the suprapubic fascia and bladder, left sided levator ani guading from 3-6 on the pelvic clock right sided iliopsoas tightness PT-OP-I Pelvic Floor Start: 04/07/24 13:03 Freq: Status: Active Protocol: Document 04/07/24 13:00 [facility] (Rec: 04/08/24 13:34 [facility] [id number]) Pelvic Floor Assessment Urine Pelvic Floor Surgery Yes Urinary Symptoms Hesitancy,Pain Other Urinary Symptoms urethral pain and burning, slow hesitant urinary stress unless she pushed Leakage Size Small Leakage Cause Cough,Sneeze Pelvic Clock Pelvic Clock 12-3 Atrophy Pelvic Clock 3-6 Atrophy,Guarding,Tenderness Pelvic Clock Other tenderness to palpation at the urethra Prolapse Urethrocele Grade 1 Rectocele Grade 1 Contraction Ability Voluntary Contraction Weak Voluntary Relaxation Weak Manual Muscle Testing Left 2 Manual Muscle Testing Right 2 Manual Muscle Testing Anterior 2 Manual Muscle Testing Posterior 2 Muscle Endurance (Seconds) 5 PT-OP-Q Treatments Start: 04/07/24 13:03 Freq: Status: Active Protocol: Document 07/16/24 09:49 [facility] (Rec: 07/16/24 10:47 [facility] [id number]) Therapeutic Exercises Supine Exercises supine ball squeeze with pelvic floor contraction Reps/Minutes 10 reps pelvic floor quick contrations Reps/Minutes 10 reps holding 2 sec each pelvic floor long holds Reps/Minutes 10 reps holding 10 seconds and relaxing 10 seconds Comments 9.4 uv average filemon test stretch for the hip flexor Reps/Minutes hold 1-2 min Manual Therapy Treatment Soft Tissue Mobilization manual quad and iliopsoas release Comments in filemon test position right adductor release Mobilization Type Myofascial Release Intensity/Depth Moderate Body Position Hooklying PT-OP-T Assessment and Plan Start: 04/07/24 13:03 Freq: Status: Active Protocol: Document 07/16/24 09:49 [facility] (Rec: 07/16/24 10:47 [facility] [id number]) Physical Therapy Assessment Goals 3 Impairment pelvic floor weakness with MMT of 2/5 and decreased endurance of the levator ani Operations Manager Goal (LTG) Patricia presents with improved strength of the levator ani for improved bladder and urethral support good progress 3/5 MMT of the levator ani LTG Duration 8 weeks 2 Impairment spasm and tightness of the right adductor attachments to the pubic bone Penitentiary Goal (LTG) Pt presents with overall reduction of adductor spasm and tightness Patricia is making good progress with her home program of stretching, we are working on lengthening out the adductors as well as iliopsoas LTG Duration 8 1 Impairment urethral pain and pelvic floor spasms making her feel as if she has a UTI causing pain with urination and with intercourse Operations Manager Goal (LTG) Patricia reprots a overall reduction in urethral and pelvic pain and is no longer experiencing pain with urination or intercourse good progress and decreased urethral pain Assessment Summary Assessment We worked on EMG biofeedback today, Patricia has difficulty sustaining a pelvic floor contraction for up to 10 seconds and she would benefit from continued work on endurance training. She has been doing her stretches but hasn't done as much of the anterior quad and hip stretching. Her right side is tighter and her left and we reviewed these stretches today Physical Therapy Plan Frequency and Duration Frequency of Treatment 1x/Week Duration of treatment (weeks) 8 Plan of Care Start Date 07/14/24 Plan of Care End Date 09/08/24 Therapeutic Interventions Therapeutic Interventions Home Exercise Program,Manual Therapy,Neuromuscular Re- education,Patient/Caregiver Education,Self-Care/Home Management,Soft Tissue Mobilization,Therapeutic Exercises Modalities Biofeedback Next Visit Focus/Plan Next Note Type Treatment Note Next Visit Plan review new exercises given today for the hip and continue with fascial release, continue with pelvic floor endurance training
--- NOTE | 2024-08-04 16:19 | PT.OTN ---
Current Diagnoses Pelvic muscle wasting (08/04/24) Other specified noninflammatory disorders of vagina (08/04/24) Pelvic and perineal pain (08/04/24) Physical Therapy Treatment Note PT-OP-A Visit Information Start: 04/07/24 13:03 Freq: Status: Active Protocol: Document 08/04/24 14:33 [facility] (Rec: 08/04/24 15:18 [facility] [id number]) Out-Patient Physical Therapy Visit Information Visit Information Visit Type Treatment Note Visit Start Time 14:30 Visit Stop Time 15:15 Visit Number 9 Evaluation Information Evaluation Date 04/07/24 PT-OP-B Current Condition Start: 04/07/24 13:03 Freq: Status: Active Protocol: Document 04/07/24 13:04 [facility] (Rec: 04/07/24 13:47 [facility] [id number]) Current Condition History of Current Condition Onset Date july 2023 Current Complaints urethral discomfort, pelvic pain, stress incontinence History of Current Condition Michelle reports she decided not to do the surgery and decided to use the estrace daily and she is in need of shoulder surgery so she decided to hold off. When she does too much lifting or bending then she starts to get pelvic floor muscle spasms. She does feel the estrace helps with the burning. She notes she has to push on her bladder when she is in a hurry. She is experiencing pain with intercourse. Treatment Goals Patient/Caregiver Goals pt goals include decreasing urethral and pelvic pain PT-OP-C Subjective Start: 04/15/24 10:00 Freq: Status: Active Protocol: Document 08/04/24 14:33 [facility] (Rec: 08/04/24 15:18 [facility] [id number]) OP-PT Subjective Patient Comments Patient Comments Patricia notes she had the flu and she has been coughing a lot so this has made her pelvic floor feel cramping and her back feels out PT-OP-F Manual Assessment Start: 04/07/24 13:03 Freq: Status: Active Protocol: Document 04/07/24 13:00 [facility] (Rec: 04/08/24 13:34 [facility] [id number]) Manual Assessments Soft Tissue Assessment Soft Tissue Mobility Assessment right sided adductor guarding and tightness at the attachments to the pubic bone, tightness of the suprapubic fascia and bladder, left sided levator ani guading from 3-6 on the pelvic clock right sided iliopsoas tightness PT-OP-I Pelvic Floor Start: 04/07/24 13:03 Freq: Status: Active Protocol: Document 04/07/24 13:00 [facility] (Rec: 04/08/24 13:34 [facility] [id number]) Pelvic Floor Assessment Urine Pelvic Floor Surgery Yes Urinary Symptoms Hesitancy,Pain Other Urinary Symptoms urethral pain and burning, slow hesitant urinary stress unless she pushed Leakage Size Small Leakage Cause Cough,Sneeze Pelvic Clock Pelvic Clock 12-3 Atrophy Pelvic Clock 3-6 Atrophy,Guarding,Tenderness Pelvic Clock Other tenderness to palpation at the urethra Prolapse Urethrocele Grade 1 Rectocele Grade 1 Contraction Ability Voluntary Contraction Weak Voluntary Relaxation Weak Manual Muscle Testing Left 2 Manual Muscle Testing Right 2 Manual Muscle Testing Anterior 2 Manual Muscle Testing Posterior 2 Muscle Endurance (Seconds) 5 PT-OP-Q Treatments Start: 04/07/24 13:03 Freq: Status: Active Protocol: Document 08/04/24 14:30 [facility] (Rec: 08/04/24 16:18 [facility] [id number]) Manual Therapy Treatment Soft Tissue Mobilization iliopsoas release on the right side Mobilization Type Myofascial Release Intensity/Depth Moderate Body Position Hooklying suprapubic fascia Mobilization Type Myofascial Release Intensity/Depth Moderate Body Position Hooklying Comments worked on suprapubic fascial release and mobilization of the bladder PT-OP-T Assessment and Plan Start: 04/07/24 13:03 Freq: Status: Active Protocol: Document 08/04/24 14:30 [facility] (Rec: 08/04/24 16:18 [facility] [id number]) Physical Therapy Assessment Assessment Summary Assessment I worked on decompressing the pelvis today with fascial release of the suprapubic fascia and releasing the psoas . Now that Patricia is not having the chronic cough we talked about bracing with her pelvic floor prior to a cough to decrease strain to her bladder Physical Therapy Plan Frequency and Duration Frequency of Treatment 1x/Week Duration of treatment (weeks) 8 Plan of Care Start Date 07/14/24 Plan of Care End Date 09/08/24 Therapeutic Interventions Therapeutic Interventions Home Exercise Program,Manual Therapy,Neuromuscular Re- education,Patient/Caregiver Education,Self-Care/Home Management,Soft Tissue Mobilization,Therapeutic Exercises Modalities Biofeedback Next Visit Focus/Plan Next Note Type Treatment Note Next Visit Plan review hip and pelvic floor endurance exercises and continue with fascial release. Check in with how Patricia is doing with her complaints of pelvic heaviness after having the flu
--- NOTE | 2024-09-16 13:13 | PT.OTN ---
Current Diagnoses Pelvic muscle wasting (09/16/24) Other specified noninflammatory disorders of vagina (09/16/24) Pelvic and perineal pain (09/16/24) Physical Therapy Treatment Note PT-OP-A Visit Information Start: 04/07/24 13:03 Freq: Status: Active Protocol: Document 09/16/24 10:45 [facility] (Rec: 09/16/24 13:12 [facility] [id number]) Out-Patient Physical Therapy Visit Information Visit Information Visit Type Treatment Note Visit Start Time 10:45 Visit Stop Time 11:30 Visit Number 10 PT-OP-B Current Condition Start: 04/07/24 13:03 Freq: Status: Active Protocol: Document 04/07/24 13:04 [facility] (Rec: 04/07/24 13:47 [facility] [id number]) Current Condition History of Current Condition Onset Date july 2023 Current Complaints urethral discomfort, pelvic pain, stress incontinence History of Current Condition Michelle reports she decided not to do the surgery and decided to use the estrace daily and she is in need of shoulder surgery so she decided to hold off. When she does too much lifting or bending then she starts to get pelvic floor muscle spasms. She does feel the estrace helps with the burning. She notes she has to push on her bladder when she is in a hurry. She is experiencing pain with intercourse. Treatment Goals Patient/Caregiver Goals pt goals include decreasing urethral and pelvic pain PT-OP-C Subjective Start: 04/15/24 10:00 Freq: Status: Active Protocol: Document 09/16/24 10:45 [facility] (Rec: 09/16/24 13:12 [facility] [id number]) OP-PT Subjective Patient Comments Patient Comments she was sick and did notice occasional coughing and she was expereincing leaking and now she is feeling some pressure in her rectum. She has been trying to return to pelvic floor exercises. Today will be her last visit as she will be headed out of town x 6 weeks PT-OP-F Manual Assessment Start: 04/07/24 13:03 Freq: Status: Active Protocol: Document 04/07/24 13:00 [facility] (Rec: 04/08/24 13:34 [facility] [id number]) Manual Assessments Soft Tissue Assessment Soft Tissue Mobility Assessment right sided adductor guarding and tightness at the attachments to the pubic bone, tightness of the suprapubic fascia and bladder, left sided levator ani guading from 3-6 on the pelvic clock right sided iliopsoas tightness PT-OP-I Pelvic Floor Start: 04/07/24 13:03 Freq: Status: Active Protocol: Document 04/07/24 13:00 [facility] (Rec: 04/08/24 13:34 [facility] [id number]) Pelvic Floor Assessment Urine Pelvic Floor Surgery Yes Urinary Symptoms Hesitancy,Pain Other Urinary Symptoms urethral pain and burning, slow hesitant urinary stress unless she pushed Leakage Size Small Leakage Cause Cough,Sneeze Pelvic Clock Pelvic Clock 12-3 Atrophy Pelvic Clock 3-6 Atrophy,Guarding,Tenderness Pelvic Clock Other tenderness to palpation at the urethra Prolapse Urethrocele Grade 1 Rectocele Grade 1 Contraction Ability Voluntary Contraction Weak Voluntary Relaxation Weak Manual Muscle Testing Left 2 Manual Muscle Testing Right 2 Manual Muscle Testing Anterior 2 Manual Muscle Testing Posterior 2 Muscle Endurance (Seconds) 5 PT-OP-Q Treatments Start: 04/07/24 13:03 Freq: Status: Active Protocol: Document 09/16/24 10:45 [facility] (Rec: 09/16/24 13:12 [facility] [id number]) Manual Therapy Treatment Soft Tissue Mobilization iliopsoas release on the right side Mobilization Type Myofascial Release Intensity/Depth Moderate Body Position Hooklying suprapubic fascia Mobilization Type Myofascial Release Intensity/Depth Moderate Body Position Hooklying Comments worked on suprapubic fascial release and mobilization of the bladder PT-OP-T Assessment and Plan Start: 04/07/24 13:03 Freq: Status: Active Protocol: Document 09/16/24 10:45 [facility] (Rec: 09/16/24 13:12 [facility] [id number]) Physical Therapy Assessment Goals 3 Impairment pelvic floor weakness with MMT of 2/5 and decreased endurance of the levator ani Shoe Cleaner Goal (LTG) Patricia presents with improved strength of the levator ani for improved bladder and urethral support good progress 3/5 MMT of the levator ani LTG Duration 8 weeks 2 Impairment spasm and tightness of the right adductor attachments to the pubic bone Mcfp Goal (LTG) Pt presents with overall reduction of adductor spasm and tightness Patricia is making good progress with her home program of stretching, we are working on lengthening out the adductors as well as iliopsoas LTG Duration 8 1 Impairment urethral pain and pelvic floor spasms making her feel as if she has a UTI causing pain with urination and with intercourse Shoe Cleaner Goal (LTG) Patricia reports a overall reduction in urethral and pelvic pain and is no longer experiencing pain with urination or intercourse good progress and decreased urethral pain Assessment Summary Assessment Patricia had been doing better until she got sick again with a great amount of coughing. She did reaggravate her pelvic pressure symptoms. I worked on decompression today with fascial release and she tolerated this well. At this point she will be discharged to a [facility] as she will be heading out of town. Physical Therapy Plan Discharge Physical Therapy Discharge Comments Patricia is independent with a home exercise program and will continue working on pelvic floor exercises at home
== END 2024-09-24 09:03 | disposition home or self-care (01) ==
LOC: PHYS 10:45
PROVIDERS: PCP Family Medicine; Referring Provider Student in an Organized Health Care Education/Training Program; Visit Provider Student in an Organized Health Care Education/Training Program
DX: N89.8 Other specified noninflammatory disorders of vagina (principal); N81.84 Pelvic muscle wasting; R10.2 Pelvic and perineal pain
CPT/HCPCS: 97110; 97140; 97161

== ENCOUNTER → 2025-01-21 10:06 | Outpatient (CLI) | payer OTHER, SELFPAY ==
[2022-03-27 15:26] VITALS: BMI 31.8
--- NOTE | 2025-01-21 10:08 | DI.MG.S_ITS ---
MM screening mammo BI: 01/21/2025. BI-RADS: 1 CLINICAL: 59-year old female for bilateral screening mammogram. Tyrer-Cuzick lifetime risk of 7.4%. No personal or first-degree family history of breast cancer. The patient had a prior left breast biopsy. PRIOR EXAMS 11/13/2023, 08/09/2022, 02/20/2021. MAMMOGRAPHY TECHNIQUE: 2D and 3D (tomosynthesis) digital mammographic views obtained, with additional images as needed for full coverage. Current study was also evaluated with a Computer Aided Detection (CAD) system. DENSITY B. There are scattered areas of fibroglandular density. MAMMOGRAPHY FINDINGS Bilateral: No suspicious mass, asymmetry, microcalcification, or other abnormality seen. IMPRESSION: * No evidence of malignancy. RECOMMENDATIONS Bilateral * Annual screening mammography. OVERALL ASSESSMENT CATEGORY BI-RADS-1: Negative. The [employer] recommends annual screening mammography beginning at age 40 for women with average risk of breast cancer. ELECTRONICALLY SIGNED: Vicki Fragoso M.D. on 01/25/2025 at 03:51:22 AM PT Interpreting Station ID: [id number]
== END ==
LOC: MAMMO 10:07
PROVIDERS: PCP Family Medicine; Referring Provider Family Medicine; Visit Provider Family Medicine
DX: Z12.31 Encounter for screening mammogram for malignant neoplasm of breast (principal)
CPT/HCPCS: 77063; 77067

== ENCOUNTER 2025-04-21 10:45 | Outpatient (RCR) | payer OTHER, SELFPAY ==
[2022-03-27 15:26] VITALS: BMI 31.8
--- NOTE | 2025-01-21 13:16 | PT.OIE ---
Current Diagnoses Other specified disorders of muscle (01/27/25) Past Medical History (Last Reviewed 11/23/24 @ 12:14 by Ayaz Murray DO) Anemia (~2005) Anxiety (~1988) Carpal tunnel syndrome (~2007) Cervical somatic dysfunction Chicken pox (~1974) Chronic back pain (~1998) Cranial somatic dysfunction Degenerative disc disease (~1998) Depression (~1999) Endometriosis (~1990) Facet arthropathy, lumbar GERD (gastroesophageal reflux disease) (~2007) Hearing loss (~2014) Hypertension (~2005) Lumbar radiculopathy Mumps (~1975) Neck pain Osteoarthritis (~2007) Shortness of breath Situational anxiety Stressful life events affecting family and household Tension headache Thoracic region somatic dysfunction Thyroid nodule (~2013) Tinnitus (~2014) Vision disorder Past Surgical History (Last Reviewed 11/23/24 @ 12:14 by Ayaz Murray DO) Anesthesia History of cystocele (~2012) History of hysterectomy (~2007) History of left breast biopsy (~1988) Visit Care Team Role Provider Type Jarrett Arevalo MD Family Provider Non-Staff Specialty: Medical Address: [address] [place] [address], [phone] Email: Jasper Sharma DO Attending Provider Non-Staff Primary Care Provider Referring Provider Specialty: Family Practice Address: [address] [place] [address], [id number] Email: Physical Therapy Initial Evaluation PT-OP-A Visit Information Start: 01/21/25 10:40 Freq: Status: Active Protocol: Document 01/21/25 10:43 [facility] (Rec: 01/21/25 10:51 [facility] [id number]) Out-Patient Physical Therapy Visit Information Visit Information Visit Type Initial Evaluation Visit Start Time 10:45 Visit Stop Time 11:30 Visit Number 1 Evaluation Information Evaluation Date 01/21/25 PT-OP-B Current Condition Start: 01/21/25 10:40 Freq: Status: Active Protocol: Document 01/21/25 10:45 [facility] (Rec: 01/21/25 10:51 [facility] [id number]) Current Condition History of Current Condition Onset Date July 2023 Current Complaints Pelvic, LB, and right hip pain, occasional leak with cough/sneeze History of Current pt notes she has been working on moving to [place] and Condition getting her house ready to sell She has been lifting and squatting and she notes increased heaviness with her pelvic floor and painful low back. She has had a little bit of burning with intercourse. She is using her estradiol every day but just on the external pelvic floor as she needs a new applicator for internal use. She is feeling tightness on her right inner hip and feels this may be contributing to her LBP She is noting leaking with coughing and sneezing. PT-OP-C Subjective Start: 01/21/25 10:40 Freq: Status: Active Protocol: Document 01/21/25 10:45 [facility] (Rec: 01/27/25 09:06 [facility] [id number]) OP-PT Subjective Patient Comments Patient Comments pt reports she has been using estrogen cream but not internally as she had lost the applicator. She has been using it on the labia only Patient Reported Improving Progress PT-OP-I Pelvic Floor Start: 01/21/25 10:40 Freq: Status: Active Protocol: Document 01/21/25 11:17 [facility] (Rec: 01/21/25 11:31 [facility] [id number]) Pelvic Floor Assessment Urine Leakage Size Small Leakage Cause Cough,Sneeze Pelvic Clock Pelvic Clock Other able to relax at rest Comments Pelvic Floor 14.4 uv average and max of 24 pt fatigues after 5 reps Comments so we gave her HEP of 5 independently and then 5 with ball squeeze for assistance, decreased endurance of the pelvic floor PT-OP-M Strength Start: 01/21/25 10:40 Freq: Status: Active Protocol: Document 01/21/25 10:45 [facility] (Rec: 01/27/25 13:13 [facility] [id number]) Trunk Strength Trunk Manual Muscle Testing Testing Position Supine Flexion 3 Fair Core Stabilization decreased activation of the transverse abdominal muscle and decreased core stabilization with ASLR PT-OP-Q Treatments Start: 01/21/25 10:40 Freq: Status: Active Protocol: Document 01/21/25 10:45 [facility] (Rec: 01/21/25 16:44 [facility] [id number]) Therapeutic Exercises Supine Exercises pelvic floor long holds Reps/Minutes holding x 10 seconds and relaxing x 10 seconds Comments EMG biofeedback Manual Therapy Treatment Soft Tissue Mobilization manual release of the adductor musculature Comments worked left and right but right side was tighter and more guarded PT-OP-T Assessment and Plan Start: 01/21/25 10:40 Freq: Status: Active Protocol: Document 01/21/25 10:45 [facility] (Rec: 01/27/25 12:47 [facility] [id number]) Physical Therapy Assessment Rehab Potential Rehabilitation Good Potential Evaluation Complexity Number of Personal 1-2 Factors/ Comorbidities Number of Body 3 Systems Impaired Clinical Evolving Presentation at Evaluation Goals 3 Impairment leakage with strong cough or sneeze Residential Goal (LTG) Patricia reports she is no longer experiencing urinary leakage with cough and sneeze LTG Duration 8 weeks 2 Impairment spasm and tightness of the right>left adductors and tightness of the suprapubic fascia Residential Goal (LTG) Patricia reports a overall reduction in tightness and guarding of the adductor musculature LTG Duration 8 weeks 1 Impairment Decreased endurance of the pelvic floor Short Term Goal (STG Patricia is able to sustain a pelvic floor contraction ) in supine x 10 seconds STG Duration 4 weeks Web Production Assistant Goal (LTG) Patricia is able to sustain a pelvic floor contraction in standing 5-10 seconds LTG Duration 8 weeks Assessment Summary Assessment With evaluation today Michelle presents with guarding of the suprapubic fascia in the region of the bladder and Right> Left adductor and iliopsoas musculature. She does report leakage with cough and sneeze. Pelvic floor assessment with EMG biofeedback was performed today and Patricia is limited with pelvic floor endurance. She fatigues quickly with pelvic floor contractions and presents with weakness of both her pelvic floor and abdominal musculature. She would benefit from PT for fascial work of the suprapubic fascia and adductors, hip stretching and strengthening exercises for her core. Patricia would also benefit from body mechanics training for lifting and ADL's as she is packing up her house to move to [place]. We started her with endurance holds of the pelvic floor and stretches for her hip flexors and she tolerated this well. Physical Therapy Plan Frequency and Duration Frequency of 1x/Week Treatment Duration of 8 treatment (weeks) Plan of Care Start 01/21/25 Date Plan of Care End 03/18/25 Date Therapeutic Interventions Therapeutic Home Exercise Program,Manual Therapy,Neuromuscular Re- Interventions education,Patient/Caregiver Education,Self-Care/Home Management,Soft Tissue Mobilization,Therapeutic Exercises Modalities Biofeedback Next Visit Focus/Plan Next Note Type Treatment Note Next Visit Plan worked on fascial release over the suprapubic fascia and adductors, Pelvic floor strengthening exercises
--- NOTE | 2025-01-21 13:17 | PT.OPPOC ---
Physical, Occupational & Speech Therapy At [facility] Current Diagnoses Other specified disorders of muscle (01/27/25) Visit Care Team Role Provider Type Jarrett Arevalo MD Family Provider Non-Staff Specialty: Medical Address: [address] [place] [address], [phone] Email: Jasper Sharma DO Attending Provider Non-Staff Primary Care Provider Referring Provider Specialty: Family Practice Address: [address] [place] [address], [id number] Email: Plan Of Care PT-OP-B Current Condition Start: 01/21/25 10:40 Freq: Status: Active Protocol: Document 01/21/25 10:45 [facility] (Rec: 01/21/25 10:51 [facility] [id number]) Current Condition History of Current Condition Onset Date July 2023 Current Complaints Pelvic, LB, and right hip pain, occasional leak with cough/sneeze History of Current pt notes she has been working on moving to [place] and Condition getting her house ready to sell She has been lifting and squatting and she notes increased heaviness with her pelvic floor and painful low back. She has had a little bit of burning with intercourse. She is using her estradiol every day but just on the external pelvic floor as she needs a new applicator for internal use. She is feeling tightness on her right inner hip and feels this may be contributing to her LBP She is noting leaking with coughing and sneezing. PT-OP-T Assessment and Plan Start: 01/21/25 10:40 Freq: Status: Active Protocol: Document 01/21/25 10:45 [facility] (Rec: 01/27/25 12:47 [facility] [id number]) Physical Therapy Assessment Rehab Potential Rehabilitation Good Potential Evaluation Complexity Number of Personal 1-2 Factors/ Comorbidities Number of Body 3 Systems Impaired Clinical Evolving Presentation at Evaluation Goals 3 Impairment leakage with strong cough or sneeze [facility] Goal (LTG) Patricia reports she is no longer experiencing urinary leakage with cough and sneeze LTG Duration 8 weeks 2 Impairment spasm and tightness of the right>left adductors and tightness of the suprapubic fascia Industrial Relations Worker Goal (LTG) Patricia reports a overall reduction in tightness and guarding of the adductor musculature LTG Duration 8 weeks 1 Impairment Decreased endurance of the pelvic floor Short Term Goal (STG Patricia is able to sustain a pelvic floor contraction ) in supine x 10 seconds STG Duration 4 weeks Industrial Relations Worker Goal (LTG) Patricia is able to sustain a pelvic floor contraction in standing 5-10 seconds LTG Duration 8 weeks Assessment Summary Assessment With evaluation today Michelle presents with guarding of the suprapubic fascia in the region of the bladder and Right> Left adductor and iliopsoas musculature. She does report leakage with cough and sneeze. Pelvic floor assessment with EMG biofeedback was performed today and Patricia is limited with pelvic floor endurance. She fatigues quickly with pelvic floor contractions and presents with weakness of both her pelvic floor and abdominal musculature. She would benefit from PT for fascial work of the suprapubic fascia and adductors, hip stretching and strengthening exercises for her core. Patricia would also benefit from body mechanics training for lifting and ADL's as she is packing up her house to move to [place]. We started her with endurance holds of the pelvic floor and stretches for her hip flexors and she tolerated this well. Physical Therapy Plan Frequency and Duration Frequency of 1x/Week Treatment Duration of 8 treatment (weeks) Plan of Care Start 01/21/25 Date Plan of Care End 03/18/25 Date Therapeutic Interventions Therapeutic Home Exercise Program,Manual Therapy,Neuromuscular Re- Interventions education,Patient/Caregiver Education,Self-Care/Home Management,Soft Tissue Mobilization,Therapeutic Exercises Modalities Biofeedback Next Visit Focus/Plan Next Note Type Treatment Note Next Visit Plan worked on fascial release over the suprapubic fascia and adductors, Pelvic floor strengthening exercises Plan of Care Dates Plan of Care Start Date 01/21/25 Plan of Care End Date 03/18/25 Electronically Signed by: Mela Akers, PT 01/27/25 0322 If you are in agreement with this Plan of Care, please return a signed and dated copy. I have reviewed this Plan of Care and certify that the skilled therapy services above are required to meet the patient?s needs. Physician Signature Date Printed Name and Credentials Clinical Instructor Signature Printed Name and Credentials
--- NOTE | 2025-01-27 13:31 | PT.OTN ---
Current Diagnoses Other specified disorders of muscle (01/27/25) Physical Therapy Treatment Note PT-OP-A Visit Information Start: 01/21/25 10:40 Freq: Status: Active Protocol: Document 01/27/25 13:18 [facility] (Rec: 01/27/25 13:30 [facility] [id number]) Out-Patient Physical Therapy Visit Information Visit Information Visit Type Treatment Note Visit Start Time 09:00 Visit Stop Time 09:45 Visit Number 2 Evaluation Information Evaluation Date 01/21/25 PT-OP-B Current Condition Start: 01/21/25 10:40 Freq: Status: Active Protocol: Document 01/21/25 10:45 [facility] (Rec: 01/21/25 10:51 [facility] [id number]) Current Condition History of Current Condition Onset Date July 2023 Current Complaints Pelvic, LB, and right hip pain, occasional leak with cough/sneeze History of Current pt notes she has been working on moving to [place] and Condition getting her house ready to sell She has been lifting and squatting and she notes increased heaviness with her pelvic floor and painful low back. She has had a little bit of burning with intercourse. She is using her estradiol every day but just on the external pelvic floor as she needs a new applicator for internal use. She is feeling tightness on her right inner hip and feels this may be contributing to her LBP She is noting leaking with coughing and sneezing. PT-OP-C Subjective Start: 01/21/25 10:40 Freq: Status: Active Protocol: Document 01/27/25 13:18 [facility] (Rec: 01/27/25 13:30 [facility] [id number]) OP-PT Subjective Patient Comments Patient Comments Patricia reports the biofeedback sensor did bother her after last visit. She will get a new applicator and start using the estrogen cream internally as well as on the labia. She also reports that it helped to work on her adductors last visit as her hip pain was improved. PT-OP-I Pelvic Floor Start: 01/21/25 10:40 Freq: Status: Active Protocol: Document 01/21/25 11:17 [facility] (Rec: 01/21/25 11:31 [facility] [id number]) Pelvic Floor Assessment Urine Leakage Size Small Leakage Cause Cough,Sneeze Pelvic Clock Pelvic Clock Other able to relax at rest Comments Pelvic Floor 14.4 uv average and max of 24 pt fatigues after 5 reps Comments so we gave her HEP of 5 independently and then 5 with ball squeeze for assistance, decreased endurance of the pelvic floor PT-OP-M Strength Start: 01/21/25 10:40 Freq: Status: Active Protocol: Document 01/21/25 10:45 [facility] (Rec: 01/27/25 13:13 [facility] [id number]) Trunk Strength Trunk Manual Muscle Testing Testing Position Supine Flexion 3 Fair Core Stabilization decreased activation of the transverse abdominal muscle and decreased core stabilization with ASLR PT-OP-Q Treatments Start: 01/21/25 10:40 Freq: Status: Active Protocol: Document 01/27/25 13:18 [facility] (Rec: 01/27/25 13:30 [facility] [id number]) Therapeutic Exercises Supine Exercises pelvic floor long holds Reps/Minutes holding x 10 seconds and relaxing x 10 seconds Comments EMG biofeedback Manual Therapy Treatment Soft Tissue Mobilization manual release of the adductor musculature Mobilization Type Myofascial Release Intensity/Depth Moderate Body Position Hooklying Comments worked left and right but right side was tighter and more guarded Self-Care/Home Management Treatment Education Other Education pt instructed to use estrogen cream vaginally for tissue health and to decrease irritation from the vaginal sensor PT-OP-T Assessment and Plan Start: 01/21/25 10:40 Freq: Status: Active Protocol: Document 01/27/25 13:18 [facility] (Rec: 01/27/25 13:30 [facility] [id number]) Physical Therapy Assessment Goals 3 Impairment leakage with strong cough or sneeze Four Slide Machine Setter Goal (LTG) Patricia reports she is no longer experiencing urinary leakage with cough and sneeze LTG Duration 8 weeks 2 Impairment spasm and tightness of the right>left adductors and tightness of the suprapubic fascia Usp Goal (LTG) Patricia reports a overall reduction in tightness and guarding of the adductor musculature LTG Duration 8 weeks 1 Impairment Decreased endurance of the pelvic floor Short Term Goal (STG Patricia is able to sustain a pelvic floor contraction ) in supine x 10 seconds STG Duration 4 weeks Four Slide Machine Setter Goal (LTG) Patricia is able to sustain a pelvic floor contraction in standing 5-10 seconds LTG Duration 8 weeks Assessment Summary Assessment We held off on EMG biofeedback today as Patricia had experienced tissue irritation. We talked about the importance of using the estrogen cream vaginally as well as externally for her tissue. She was not as tight today in her adductors. I encouraged hip stretching for home even if its just 5 min especially with packing and moving activities. Physical Therapy Plan Frequency and Duration Frequency of 1x/Week Treatment Duration of 8 treatment (weeks) Plan of Care Start 01/21/25 Date Plan of Care End 03/18/25 Date Therapeutic Interventions Therapeutic Home Exercise Program,Manual Therapy,Neuromuscular Re- Interventions education,Patient/Caregiver Education,Self-Care/Home Management,Soft Tissue Mobilization,Therapeutic Exercises Modalities Biofeedback Next Visit Focus/Plan Next Note Type Treatment Note Next Visit Plan worked on fascial release over the suprapubic fascia and adductors, Pelvic floor strengthening exercises
--- NOTE | 2025-02-24 12:55 | PT.OTN ---
Current Diagnoses Other specified disorders of muscle (02/24/25) Physical Therapy Treatment Note PT-OP-A Visit Information Start: 01/21/25 10:40 Freq: Status: Active Protocol: Document 02/24/25 10:46 [facility] (Rec: 02/24/25 10:50 [facility] [id number]) Out-Patient Physical Therapy Visit Information Visit Information Visit Type Treatment Note Visit Start Time 10:45 Visit Stop Time 11:30 Visit Number 3 Evaluation Information Evaluation Date 01/21/25 PT-OP-B Current Condition Start: 01/21/25 10:40 Freq: Status: Active Protocol: Document 01/21/25 10:45 [facility] (Rec: 01/21/25 10:51 [facility] [id number]) Current Condition History of Current Condition Onset Date July 2023 Current Complaints Pelvic, LB, and right hip pain, occasional leak with cough/sneeze History of Current pt notes she has been working on moving to [place] and Condition getting her house ready to sell She has been lifting and squatting and she notes increased heaviness with her pelvic floor and painful low back. She has had a little bit of burning with intercourse. She is using her estradiol every day but just on the external pelvic floor as she needs a new applicator for internal use. She is feeling tightness on her right inner hip and feels this may be contributing to her LBP She is noting leaking with coughing and sneezing. PT-OP-C Subjective Start: 01/21/25 10:40 Freq: Status: Active Protocol: Document 02/24/25 10:46 [facility] (Rec: 02/24/25 10:50 [facility] [id number]) OP-PT Subjective Patient Comments Patient Comments Michelle is in a walking boot x 8 days and she has 9 more days she has felt burning in her urethra and pelvic floor PT-OP-I Pelvic Floor Start: 01/21/25 10:40 Freq: Status: Active Protocol: Document 01/21/25 11:17 [facility] (Rec: 01/21/25 11:31 [facility] [id number]) Pelvic Floor Assessment Urine Leakage Size Small Leakage Cause Cough,Sneeze Pelvic Clock Pelvic Clock Other able to relax at rest Comments Pelvic Floor 14.4 uv average and max of 24 pt fatigues after 5 reps Comments so we gave her HEP of 5 independently and then 5 with ball squeeze for assistance, decreased endurance of the pelvic floor PT-OP-M Strength Start: 01/21/25 10:40 Freq: Status: Active Protocol: Document 01/21/25 10:45 [facility] (Rec: 01/27/25 13:13 [facility] [id number]) Trunk Strength Trunk Manual Muscle Testing Testing Position Supine Flexion 3 Fair Core Stabilization decreased activation of the transverse abdominal muscle and decreased core stabilization with ASLR PT-OP-Q Treatments Start: 01/21/25 10:40 Freq: Status: Active Protocol: Document 02/24/25 12:49 [facility] (Rec: 02/24/25 12:55 [facility] [id number]) Manual Therapy Treatment Soft Tissue Mobilization abdominal and suprapubic fascia Mobilization Type Myofascial Release Comments worked on releasing the suprapubic fascia surrounding the bladder manual release of the adductor musculature Mobilization Type Myofascial Release Intensity/Depth Moderate Body Position Hooklying Comments worked right side only today due to tightness with walking boot Manual Techniques manual right hip ROM and stretching Comments worked on right hip ROM and stretching into hip ER, abduction and ITB stretch PT-OP-T Assessment and Plan Start: 01/21/25 10:40 Freq: Status: Active Protocol: Document 02/24/25 12:49 [facility] (Rec: 02/24/25 12:55 [facility] [id number]) Physical Therapy Assessment Goals 3 Impairment leakage with strong cough or sneeze Uniform Designer Goal (LTG) Patricia reports she is no longer experiencing urinary leakage with cough and sneeze LTG Duration 8 weeks 2 Impairment spasm and tightness of the right>left adductors and tightness of the suprapubic fascia Uniform Designer Goal (LTG) Patricia reports a overall reduction in tightness and guarding of the adductor musculature LTG Duration 8 weeks 1 Impairment Decreased endurance of the pelvic floor Short Term Goal (STG Patricia is able to sustain a pelvic floor contraction ) in supine x 10 seconds STG Duration 4 weeks Uniform Designer Goal (LTG) Patricia is able to sustain a pelvic floor contraction in standing 5-10 seconds LTG Duration 8 weeks Assessment Summary Assessment Patricia came in today post surgery on the right foot. She is in a walking boot and will be for 9 more days. She felt really guarded and tight in her hips and pelvis with burning pain in the urethra region. We worked on fascial release today and I discussed using a crutch to help level her out with ambulation so that she isn't irritating her pelvis and pelvic floor Physical Therapy Plan Frequency and Duration Frequency of 1x/Week Treatment Duration of 8 treatment (weeks) Plan of Care Start 01/21/25 Date Plan of Care End 03/18/25 Date Therapeutic Interventions Therapeutic Home Exercise Program,Manual Therapy,Neuromuscular Re- Interventions education,Patient/Caregiver Education,Self-Care/Home Management,Soft Tissue Mobilization,Therapeutic Exercises Modalities Biofeedback Next Visit Focus/Plan Next Note Type Treatment Note Next Visit Plan worked on fascial release over the suprapubic fascia and adductors, Pelvic floor strengthening exercises
--- NOTE | 2025-03-10 13:23 | PT.OPPOC ---
Physical, Occupational & Speech Therapy At [facility] Current Diagnoses Other specified disorders of muscle (03/10/25) Visit Care Team Role Provider Type Jarrett Arevalo MD Family Provider Non-Staff Specialty: Medical Address: [address] [place] [address], [phone] Email: Jasper Sharma DO Attending Provider Non-Staff Primary Care Provider Referring Provider Specialty: Family Practice Address: [address] [place] [address], [id number] Email: Plan Of Care PT-OP-A Visit Information Start: 01/21/25 10:40 Freq: Status: Active Protocol: Document 03/10/25 10:48 [facility] (Rec: 03/10/25 10:55 [facility] [id number]) Out-Patient Physical Therapy Visit Information Visit Information Visit Type Progress Note Visit Start Time 10:45 Visit Stop Time 11:30 Visit Number 4 PT-OP-B Current Condition Start: 01/21/25 10:40 Freq: Status: Active Protocol: Document 01/21/25 10:45 [facility] (Rec: 01/21/25 10:51 [facility] [id number]) Current Condition History of Current Condition Onset Date July 2023 Current Complaints Pelvic, LB, and right hip pain, occasional leak with cough/sneeze History of Current pt notes she has been working on moving to [place] and Condition getting her house ready to sell She has been lifting and squatting and she notes increased heaviness with her pelvic floor and painful low back. She has had a little bit of burning with intercourse. She is using her estradiol every day but just on the external pelvic floor as she needs a new applicator for internal use. She is feeling tightness on her right inner hip and feels this may be contributing to her LBP She is noting leaking with coughing and sneezing. PT-OP-C Subjective Start: 01/21/25 10:40 Freq: Status: Active Protocol: Document 03/10/25 10:48 [facility] (Rec: 03/10/25 10:55 [facility] [id number]) OP-PT Subjective Patient Comments Patient Comments pt has her walking boot off she hasn't had any burning of her pelvis since last week. PT-OP-I Pelvic Floor Start: 01/21/25 10:40 Freq: Status: Active Protocol: Document 01/21/25 11:17 [facility] (Rec: 01/21/25 11:31 [facility] [id number]) Pelvic Floor Assessment Urine Leakage Size Small Leakage Cause Cough,Sneeze Pelvic Clock Pelvic Clock Other able to relax at rest Comments Pelvic Floor 14.4 uv average and max of 24 pt fatigues after 5 reps Comments so we gave her HEP of 5 independently and then 5 with ball squeeze for assistance, decreased endurance of the pelvic floor PT-OP-M Strength Start: 01/21/25 10:40 Freq: Status: Active Protocol: Document 01/21/25 10:45 [facility] (Rec: 01/27/25 13:13 [facility] [id number]) Trunk Strength Trunk Manual Muscle Testing Testing Position Supine Flexion 3 Fair Core Stabilization decreased activation of the transverse abdominal muscle and decreased core stabilization with ASLR PT-OP-Q Treatments Start: 01/21/25 10:40 Freq: Status: Active Protocol: Document 03/10/25 13:19 [facility] (Rec: 03/10/25 13:21 [facility] [id number]) Manual Therapy Treatment Consent Patient gave verbal Yes consent for manual treatment Soft Tissue Mobilization abdominal and suprapubic fascia Mobilization Type Myofascial Release Comments worked on releasing the suprapubic fascia surrounding the bladder manual release of the adductor musculature Mobilization Type Myofascial Release Intensity/Depth Moderate Body Position Hooklying Comments worked right side only today due to tightness with walking boot PT-OP-T Assessment and Plan Start: 01/21/25 10:40 Freq: Status: Active Protocol: Document 03/10/25 13:19 [facility] (Rec: 03/10/25 13:21 [facility] [id number]) Physical Therapy Assessment Goals 3 Impairment leakage with strong cough or sneeze Jail Goal (LTG) Patricia reports she is no longer experiencing urinary leakage with cough and sneeze LTG Duration 8 weeks 2 Impairment spasm and tightness of the right>left adductors and tightness of the suprapubic fascia Jail Goal (LTG) Patricia reports a overall reduction in tightness and guarding of the adductor musculature LTG Duration 8 weeks 1 Impairment Decreased endurance of the pelvic floor Short Term Goal (STG Patricia is able to sustain a pelvic floor contraction ) in supine x 10 seconds STG Duration 4 weeks Jail Goal (LTG) Patricia is able to sustain a pelvic floor contraction in standing 5-10 seconds LTG Duration 8 weeks Assessment Summary Assessment Patricia is able to walk now without the walking boot. I encouraged her when she is able to begin walking in the pool as she is taking short steps right now and this is contributing to her tightness of the hip flexors. We will return to EMG biofeedback next visit as she felt she has not been practicing her pelvic floor exercises due to the foot symptoms Physical Therapy Plan Frequency and Duration Frequency of 1x/Week Treatment Duration of 8 treatment (weeks) Plan of Care Start 03/10/25 Date Plan of Care End 05/05/25 Date Next Visit Focus/Plan Next Note Type Treatment Note Next Visit Plan worked on fascial release over the suprapubic fascia and adductors, Pelvic floor strengthening exercises Plan of Care Dates Plan of Care Start Date 03/10/25 Plan of Care End Date 05/05/25 Electronically Signed by: Mela Akers, PT 03/10/25 0290 If you are in agreement with this Plan of Care, please return a signed and dated copy. I have reviewed this Plan of Care and certify that the skilled therapy services above are required to meet the patient?s needs. Physician Signature Date Printed Name and Credentials Clinical Instructor Signature Printed Name and Credentials
--- NOTE | 2025-04-13 16:30 | PT.OTN ---
Current Diagnoses Other specified disorders of muscle (04/13/25) Physical Therapy Treatment Note PT-OP-A Visit Information Start: 01/21/25 10:40 Freq: Status: Active Protocol: Document 04/13/25 14:40 [facility] (Rec: 04/14/25 08:06 [facility] [id number]) Out-Patient Physical Therapy Visit Information Visit Information Visit Type Treatment Note Visit Start Time 14:40 Visit Stop Time 15:20 Visit Number 5 PT-OP-B Current Condition Start: 01/21/25 10:40 Freq: Status: Active Protocol: Document 01/21/25 10:45 [facility] (Rec: 01/21/25 10:51 [facility] [id number]) Current Condition History of Current Condition Onset Date July 2023 Current Complaints Pelvic, LB, and right hip pain, occasional leak with cough/sneeze History of Current pt notes she has been working on moving to [place] and Condition getting her house ready to sell She has been lifting and squatting and she notes increased heaviness with her pelvic floor and painful low back. She has had a little bit of burning with intercourse. She is using her estradiol every day but just on the external pelvic floor as she needs a new applicator for internal use. She is feeling tightness on her right inner hip and feels this may be contributing to her LBP She is noting leaking with coughing and sneezing. PT-OP-C Subjective Start: 01/21/25 10:40 Freq: Status: Active Protocol: Document 03/10/25 10:48 [facility] (Rec: 03/10/25 10:55 [facility] [id number]) OP-PT Subjective Patient Comments Patient Comments pt has her walking boot off she hasn't had any burning of her pelvis since last week. PT-OP-I Pelvic Floor Start: 01/21/25 10:40 Freq: Status: Active Protocol: Document 01/21/25 11:17 [facility] (Rec: 01/21/25 11:31 [facility] [id number]) Pelvic Floor Assessment Urine Leakage Size Small Leakage Cause Cough,Sneeze Pelvic Clock Pelvic Clock Other able to relax at rest Comments Pelvic Floor 14.4 uv average and max of 24 pt fatigues after 5 reps Comments so we gave her HEP of 5 independently and then 5 with ball squeeze for assistance, decreased endurance of the pelvic floor PT-OP-M Strength Start: 01/21/25 10:40 Freq: Status: Active Protocol: Document 01/21/25 10:45 [facility] (Rec: 01/27/25 13:13 [facility] [id number]) Trunk Strength Trunk Manual Muscle Testing Testing Position Supine Flexion 3 Fair Core Stabilization decreased activation of the transverse abdominal muscle and decreased core stabilization with ASLR PT-OP-Q Treatments Start: 01/21/25 10:40 Freq: Status: Active Protocol: Document 04/13/25 14:40 [facility] (Rec: 04/14/25 08:08 [facility] [id number]) Therapeutic Exercises Other Exercises aquatic exercises Other Exercise Name side steps in pool, hip abduction, adduction stretch, hip flexion and exten Comments handouts given to Patricia for stretches and exercises in the pool Manual Therapy Treatment Soft Tissue Mobilization abdominal and suprapubic fascia Mobilization Type Myofascial Release Comments worked on releasing the suprapubic fascia surrounding the bladder manual release of the adductor musculature Mobilization Type Myofascial Release Intensity/Depth Moderate Body Position Hooklying Comments worked right side only today due to tightness PT-OP-T Assessment and Plan Start: 01/21/25 10:40 Freq: Status: Active Protocol: Document 04/13/25 14:40 [facility] (Rec: 04/14/25 08:06 [facility] [id number]) Physical Therapy Assessment Goals 3 Impairment leakage with strong cough or sneeze [employer] Goal (LTG) Patricia reports she is no longer experiencing urinary leakage with cough and sneeze LTG Duration 8 weeks 2 Impairment spasm and tightness of the right>left adductors and tightness of the suprapubic fascia [employer] B[employer]iff Goal (LTG) Patricia reports a overall reduction in tightness and guarding of the adductor musculature LTG Duration 8 weeks 1 Impairment Decreased endurance of the pelvic floor Short Term Goal (STG Patricia is able to sustain a pelvic floor contraction ) in supine x 10 seconds STG Duration 4 weeks [facility]sp Goal (LTG) Patricia is able to sustain a pelvic floor contraction in standing 5-10 seconds LTG Duration 8 weeks Assessment Summary Assessment Patricia has been moving and is in a rental prior to moving to [place]. She has not been in her routine for pelvic floor exercises. She is also healing from her right foot surgery and is still presenting with a antalgic gait. She reports that the urinary burning has returned again and she has been working on stretching her pelvic floor which does help this. I have encouraged her to do water walking and exercises once she gets to [place] as she will have access to a pool. She was given handouts today of water exercises Physical Therapy Plan Frequency and Duration Frequency of 1x/Week Treatment Duration of 8 treatment (weeks) Plan of Care Start 03/10/25 Date Plan of Care End 05/05/25 Date Next Visit Focus/Plan Next Note Type Treatment Note Next Visit Plan worked on fascial release over the suprapubic fascia and adductors, Pelvic floor strengthening exercises
--- NOTE | 2025-04-21 13:19 | PT.OTN ---
Current Diagnoses Other specified disorders of muscle (04/21/25) Physical Therapy Treatment Note PT-OP-A Visit Information Start: 01/21/25 10:40 Freq: Status: Active Protocol: Document 04/21/25 10:44 [facility] (Rec: 04/21/25 11:02 [facility] [id number]) Out-Patient Physical Therapy Visit Information Visit Information Visit Type Treatment Note Visit Start Time 09:45 Visit Stop Time 10:30 Visit Number 6 PT-OP-B Current Condition Start: 01/21/25 10:40 Freq: Status: Active Protocol: Document 01/21/25 10:45 [facility] (Rec: 01/21/25 10:51 [facility] [id number]) Current Condition History of Current Condition Onset Date July 2023 Current Complaints Pelvic, LB, and right hip pain, occasional leak with cough/sneeze History of Current pt notes she has been working on moving to [place] and Condition getting her house ready to sell She has been lifting and squatting and she notes increased heaviness with her pelvic floor and painful low back. She has had a little bit of burning with intercourse. She is using her estradiol every day but just on the external pelvic floor as she needs a new applicator for internal use. She is feeling tightness on her right inner hip and feels this may be contributing to her LBP She is noting leaking with coughing and sneezing. PT-OP-C Subjective Start: 01/21/25 10:40 Freq: Status: Active Protocol: Document 04/21/25 10:44 [facility] (Rec: 04/21/25 11:02 [facility] [id number]) OP-PT Subjective Patient Comments Patient Comments pt notes she is not too bad in her pelvic floor, she hasn't had any burning pain and she has been practicing her long holds. This is her last visit prior to moving to [place] PT-OP-I Pelvic Floor Start: 01/21/25 10:40 Freq: Status: Active Protocol: Document 01/21/25 11:17 [facility] (Rec: 01/21/25 11:31 [facility] [id number]) Pelvic Floor Assessment Urine Leakage Size Small Leakage Cause Cough,Sneeze Pelvic Clock Pelvic Clock Other able to relax at rest Comments Pelvic Floor 14.4 uv average and max of 24 pt fatigues after 5 reps Comments so we gave her HEP of 5 independently and then 5 with ball squeeze for assistance, decreased endurance of the pelvic floor PT-OP-M Strength Start: 01/21/25 10:40 Freq: Status: Active Protocol: Document 01/21/25 10:45 [facility] (Rec: 01/27/25 13:13 [facility] [id number]) Trunk Strength Trunk Manual Muscle Testing Testing Position Supine Flexion 3 Fair Core Stabilization decreased activation of the transverse abdominal muscle and decreased core stabilization with ASLR PT-OP-Q Treatments Start: 01/21/25 10:40 Freq: Status: Active Protocol: Document 04/21/25 10:44 [facility] (Rec: 04/21/25 11:02 [facility] [id number]) Therapeutic Exercises Supine Exercises pelvic floor long holds Supine Exercise Name pt is on her side Reps/Minutes holding x 10 seconds and relaxing x 10 seconds Comments EMG biofeedback averaage 26 and max of 41 Manual Therapy Treatment Soft Tissue Mobilization abdominal and suprapubic fascia Mobilization Type Myofascial Release Comments worked on releasing the suprapubic fascia surrounding the bladder manual release of the adductor musculature Mobilization Type Myofascial Release Intensity/Depth Moderate Body Position Hooklying Comments worked right side only today due to tightness PT-OP-T Assessment and Plan Start: 01/21/25 10:40 Freq: Status: Active Protocol: Document 04/21/25 10:44 [facility] (Rec: 04/21/25 11:02 [facility] [id number]) Physical Therapy Assessment Goals 3 Impairment leakage with strong cough or sneeze [employer] Goal (LTG) Patricia reports she is no longer experiencing urinary leakage with cough and sneeze good progress LTG Duration 8 weeks 2 Impairment spasm and tightness of the right>left adductors and tightness of the suprapubic fascia Care Home Goal (LTG) Patricia reports a overall reduction in tightness and guarding of the adductor musculature good overall progress LTG Duration 8 weeks 1 Impairment Decreased endurance of the pelvic floor Short Term Goal (STG Patricia is able to sustain a pelvic floor contraction ) in supine x 10 seconds goal met STG Duration 4 weeks Care Home Goal (LTG) Patricia is able to sustain a pelvic floor contraction in standing 5-10 seconds good progress LTG Duration 8 weeks Assessment Summary Assessment Today is Michelle's last visit in PT prior to her move to [place]. She has been dealing with recovering from foot surgery so her rehab for her pelvic floor took longer as she was limping from her foot pain. She is better overall and today demonstrated great pelvic floor strength and endurance and overall decreased c/o pelvic pain and vaginal irritation. She will be discharged at this time to a [facility] Physical Therapy Plan Discharge Physical Therapy Discharge Reasons No Longer Attending PT Discharge Comments pt is moving out of the state
== END 2025-04-22 10:51 | disposition home or self-care (01) ==
LOC: PHYS 10:45
PROVIDERS: PCP Family Medicine; Referring Provider Family Medicine; Visit Provider Family Medicine
DX: M62.89 Other specified disorders of muscle (principal)
CPT/HCPCS: 97110; 97140; 97161; 97535